=== PATIENT | male | born 1955 | race Caucasian/White ===

== ENCOUNTER 2020-01-06 09:05 | Outpatient (CLI) | payer MEDICARE, OTHER, SELFPAY ==
[2020-01-06 10:11] LABS: Alanine Aminotransferase 32 U/L (4-50); Albumin Level 4.1 g/dL (3.5-5.1); Alkaline Phosphatase 83 U/L (38-126); Aspartate Amino Transferase 26 U/L (17-59); Bilirubin,Total 0.6 mg/dL (0.2-1.3); Blood Urea Nitrogen 10 mg/dL (9-20); Calcium 8.8 mg/dL (8.4-10.2); Carbon Dioxide 27 mmol/L (22-30); Chloride 99 mmol/L (98-107); Cholesterol 94 mg/dL (0-200); Estimated Glomerular Filt Rate > 60; Glucose 177 mg/dL (75-110); HDL Direct 27 mg/dL; Sodium 136 mmol/L (137-145); Triglycerides 199 mg/dL (<150)
[2020-01-06 10:15] LABS: Hemoglobin A1C 7.4 % (<5.7)
[2020-01-06 10:22] LABS: LDL Cholesterol Direct 59 mg/dL
[2020-01-06 10:42] LABS: Prostate Specific Antigen 0.5 ng/mL (< OR = 4.0)
== END 2020-01-06 09:06 | disposition home or self-care (01) ==
PROVIDERS: PCP Family Medicine; Visit Provider Family Medicine
DX: Z12.5 Encounter for screening for malignant neoplasm of prostate (principal); I10 Essential (primary) hypertension; E11.9 Type 2 diabetes mellitus without complications
CPT/HCPCS: 36415; 80053; 80061; 83036; 84153; G0103

== ENCOUNTER 2023-08-18 14:08 | Observation (INO) | payer MEDICARE, OTHER, SELFPAY ==
[2023-08-18] VITALS (22 sets, daily range): BP systolic 110–142; BP diastolic 61–81; PULSE 83–102; RESP 14–32; TEMP 37; O2SAT 92–98
--- NOTE | ~2023-08-18 | XR_ITS ---
EXAMINATION: XR chest 2V DATE: 08/18/2023 15:54 INDICATION: Weakness TECHNIQUE: AP and lateral views of the chest are obtained. COMPARISON: 07/16/2014 FINDINGS: The lungs are free of acute opacities. No pleural effusion or pneumothorax. The cardiomedia stinal silhouette is normal. There is moderate thoracic spondylosis. IMPRESSION: 1. No acute cardiopulmonary abnormality. Reviewed, dictated and finalized at location F.
--- NOTE | 2023-08-18 15:15 | ECG_ITS ---
Measurements Intervals [place] Rate: 87 P: 68 [place]: 185 QRS: 104 QRSD: 138 T: 40 QT: 377 QTc: 454 Interpretive Statements SINUS RHYTHM WITH FREQUENT SUPRAVENTRICULAR PREMATURE COMPLEXES MARKED RIGHT AXIS DEVIATION [QRS AXIS > 100] RIGHT BUNDLE BRANCH BLOCK [120+ ms QRS DURATION, UPRIGHT V1, 40+ ms S IN I/aVL/V4/V5/V6] ABNORMAL ECG COMPARED TO ECG 08/18/2023 15:21:14 NO SIGNIFICANT CHANGES Electronically Signed On 08-19-2023 8:52:43 CDT by Thomas Francois M.D.
[2023-08-18 15:48] LABS: Basophils Percent Auto 0.3 % (0.2-1.2); Eosinophils Percent Auto 0.1 % (0-4.4); Hematocrit 43.4 % (42.0-52.0); Hemoglobin 14.2 g/dL (14.0-18.0); Immature Granulocyte Absolute 0.05 K/mm3 (0.00-0.031); Immature Granulocyte Percent A 0.5 % (0-0.5); Lymphocytes Absolute Auto 0.52 K/mm3 (0.9-3.2); Lymphocytes Percent Auto 5.4 % (18.3-44.2); Mean Corpuscular HGB Conc 32.7 g/dl (32-36); Mean Corpuscular Hemoglobin 30.3 pg (26-34); Mean Corpuscular Volume 92.5 fl (80-100); Mean Platelet Volume 10.6 fl (7.4-10.4); Monocytes Absolute Auto 0.8 K/mm3 (0.1-0.6); Monocytes Percent Auto 8.2 % (2.6-8.5); Neutrophils Absolute Auto 8.3 K/mm3 (1.3-6.7); Neutrophils Percent Auto 85.5 % (45.5-73.1); Platelet Count Result 232 k/mm3 (150-375); Red Blood Count 4.69 M/mm3 (4.6-6.20); Red Cell Distribution Width 13.3 % (11.5-14.5); White Blood Count 9.7 K/mm3 (4.5-10.0)
[2023-08-18 15:54] LABS: Alanine Aminotransferase 54 U/L (6-50); Albumin Level 4.4 g/dL (3.5-5.1); Alkaline Phosphatase 87 U/L (38-126); Anion Gap 14 mmol/L (8-16); Aspartate Amino Transferase 61 U/L (17-59); Bilirubin,Total 0.6 mg/dL (0.2-1.3); Blood Urea Nitrogen 12 mg/dL (9-20); Carbon Dioxide 20 mmol/L (22-30); Chloride 95 mmol/L (98-107); Estimated CRCL calculation 106 ml/min; Estimated Glomerular Filt Rate > 60; Glucose 314 mg/dL (65-110); Potassium 3.9 mmol/L (3.4-5.0); Sodium 129 mmol/L (137-145)
[2023-08-18 16:50] LABS: Appearance Urine Clear (Clear); Bacteria Urine None Seen /hpf; Bilirubin Urine Negative (Negative); Blood Urine Negative (Negative); Color Urine Yellow (Yellow); Glucose Urine UA Negative (Negative); Hyaline Casts Urine Present /lpf; Ketones Urine 3+ mg/dL (Negative); Leukocyte Esterase Ur Negative LEU/UL (Negative); Nitrate Urine Negative (Negative); Protein Urine Trace mg/dL (Negative); RBC Urine 0-2 /hpf (0-2); Specific Grav Ur 1.024 (1.001-1.035); Squamous Epithelial Cell Urine None seen /hpf (Few); WBC Urine 0-5 /hpf; pH Urine 5.5 (5.0-9.0)
[2023-08-18 16:56] LABS: Add Urine Microscopic? YES
--- NOTE | 2023-08-18 21:17 | ECG_ITS ---
Measurements Intervals [place] Rate: 96 P: 80 [place]: 144 QRS: 98 QRSD: 133 T: 33 QT: 383 QTc: 485 Interpretive Statements SINUS RHYTHM WITH OCCASIONAL VENTRICULAR PREMATURE COMPLEXES WITH OCCASIONAL SUPRAVENTRICULAR PREMATURE COMPLEXES RIGHT BUNDLE BRANCH BLOCK [120+ ms QRS DURATION, UPRIGHT V1, 40+ ms S IN I/aVL/V4/V5/V6] ABNORMAL ECG NO PREVIOUS ECG AVAILABLE FOR COMPARISON Electronically Signed On 08-19-2023 8:46:34 CDT by Thomas Francois M.D.
[2023-08-18] MEDS: SODIUM CHLORIDE 0.9% IV 1,000 ML 999 ML IV CONT ×2 (21:30→22:20)
[2023-08-18] MEDS: ONDANSETRON INJ 4 MG/2 ML VIAL IV PUSH (21:31)
[2023-08-18 21:37] LABS: Magnesium 1.7 mg/dL (1.6-2.3)
[2023-08-18 21:49] LABS: Troponin I 0.024 ng/mL (0.000-0.034)
[2023-08-18 22:49] LABS: Glucose Point of Care 277 mg/dl (65-105)
[2023-08-18 23:23] LABS: Troponin I 0.051 ng/mL (0.000-0.034)
--- NOTE | 2023-08-18 23:27 | ED.GENADULT ---
HPI - General Adult General Chief complaint: Weakness Stated complaint: weakness, fall Time Seen by Provider: 08/18/23 21:03 History of Present Illness HPI narrative: Patient is a 67-year-old gentleman who presents the emergency department with chief complaint of generalized weakness. Patient reports that he is a diabetic and takes oral hypoglycemics reports that he had a ground-level fall today and had difficulty getting patient required family members assistance to get up off the ground and reports that they decided to call the office to be checked out the patient reports no head injury denies loss of consciousness reports no pain anywhere just feels generally rundown and was also the patient states he feels as though he is dehydrated. Related Data Home Medications Medication Instructions Recorded Confirmed aspirin 81 mg tablet,delayed 81 mg PO DAILY 01/02/20 10/07/21 release (Adult Low Dose Aspirin) glucosamine-chondroitin 500 mg-400 1 tablet PO BID 01/02/20 10/07/21 mg tablet Allergies Allergy/AdvReac Type Severity Reaction Status Date / Time No Known Allergies Allergy Verified 10/07/21 08:30 Review of Systems Review of Systems: A 10 system review of systems was completed on the patient and is negative except for what is stated in the HPI. Nursing and ancillary documentation was reviewed. PMFSH Past Medical History Medical History Chronic cough Colon cancer screening declined Controlled gout Coronary artery disease Diabetes mellitus Ex-smoker Hyperlipidemia Hypertension Surgical History Surgical History History of appendectomy Family History Family History (Updated 08/19/23 @ 01:04 by Angie Kowalski RN) Mother Diabetes mellitus Father Family history of cardiovascular disease Acute myocardial infarction Hypertension Grandparent Family history of cardiovascular disease Social History Social History Second hand tobacco smoke exposure: No Smoking end date: 10/30/94 Alcohol intake: current Drinks per week: 20 Substance use: never Substance use type: does not use Living arrangements: with family Occupation/Education: retired Gender identity (if verbalized by the patient): Male Spiritual care concerns: Yes Agree to blood products: Yes Exam Narrative: GENERAL: Well-appearing, well-nourished, and in no acute distress. HEAD: Normocephalic, atraumatic. EYES: PERRLA and EOMI. ENT: Nares clear, no rhinorrhea or epistaxis. Mucous membranes dry. NECK: Supple. CHEST: Clear to auscultation. No respiratory distress. HEART: Regular rate and rhythm. No murmur heard. Normal peripheral pulses. ABDOMEN: Soft, nontender, nondistended, normal active bowel sounds. EXTREMITIES: Normal range of motion. No edema. SKIN: Warm, dry, no rash. NEURO: No focal deficits. Alert and oriented x3. PSYCH: Normal mood and affect. Course Vital Signs Vital signs: Vital Signs Temperature 37.0 C 08/18/23 14:17 Pulse Rate 102 H 08/18/23 14:17 Respiratory Rate 20 08/18/23 14:17 Blood Pressure 122/61 08/18/23 14:17 Pulse Oximetry 96 08/18/23 14:17 Oxygen Delivery Room Air 08/18/23 14:17 Temperature 37.0 C 08/18/23 14:17 Pulse Rate 85 08/19/23 00:08 Respiratory Rate 18 08/19/23 00:08 Blood Pressure 113/83 08/19/23 00:08 Pulse Oximetry 94 08/19/23 00:08 Oxygen Delivery Room Air 08/18/23 14:17 Medical Decision Making [facility] Narrative Medical decision making narrative: Differential diagnosis includes dehydration, generalized weakness, electrolyte abnormality, ACS, UTI Laboratory studies were obtained on the patient which showed an initial CBC that was within normal limits electrolytes showed normal renal function glucose was elevated at 314 initi
[2023-08-18] MEDS: ASPIRIN 81 MG CHEWABLE TABLET 324 MG PO (23:30)
[2023-08-18] MEDS: MAGNESIUM SULF 1 GM/D5W 100 ML 1 GM/100 ML BAG IVPB (23:39)
[2023-08-19] VITALS (23 sets, daily range): BP systolic 112–155; BP diastolic 61–83; PULSE 70–90; RESP 16–34; TEMP 36.1–37.2; O2SAT 90–97; BMI 37.5; BMI 38.9
[2023-08-19 00:44] LABS: Creatine Kinase 2682 U/L (55-170)
--- NOTE | 2023-08-19 01:00 | ADMGEN ---
This patient, Eder Hernandez, was admitted to IMU Room 206-01 at 0045. Patient/family oriented to hospital policies and general routines including ID bracelet, bed and alarms, visiting hours, pain management, procedures, bathroom and other care routines, personal items, smoking policy, room service/diet, and visiting hours. Information on how to activate the Rapid Response Team has been discussed. Patient/Family are encouraged to report perceived risks to care and to ask questions if they do not understand what they are told or what they should do.
[2023-08-19] MEDS: SODIUM CHLORIDE 0.9% IV 1,000 ML 125 ML IV CONT ×2 (01:12→18:15)
[2023-08-19 06:59] LABS: Basophils Percent Auto 0.3 % (0.2-1.2); Hematocrit 40.4 % (42.0-52.0); Hemoglobin 12.8 g/dL (14.0-18.0); Immature Granulocyte Absolute 0.04 K/mm3 (0.00-0.031); Immature Granulocyte Percent A 0.6 % (0-0.5); Lymphocytes Absolute Auto 1.04 K/mm3 (0.9-3.2); Mean Corpuscular HGB Conc 31.7 g/dl (32-36); Mean Corpuscular Hemoglobin 29.7 pg (26-34); Mean Corpuscular Volume 93.7 fl (80-100); Mean Platelet Volume 10.6 fl (7.4-10.4); Monocytes Absolute Auto 0.7 K/mm3 (0.1-0.6); Monocytes Percent Auto 10.1 % (2.6-8.5); Neutrophils Absolute Auto 5.1 K/mm3 (1.3-6.7); Platelet Count Result 201 k/mm3 (150-375); Red Blood Count 4.31 M/mm3 (4.6-6.20); Red Cell Distribution Width 13.6 % (11.5-14.5); White Blood Count 6.9 K/mm3 (4.5-10.0)
[2023-08-19 07:08] LABS: Anion Gap 9 mmol/L (8-16); Blood Urea Nitrogen 14 mg/dL (9-20); Calcium 7.8 mg/dL (8.4-10.2); Carbon Dioxide 25 mmol/L (22-30); Chloride 98 mmol/L (98-107); Estimated CRCL calculation 124 ml/min; Estimated Glomerular Filt Rate > 60; Glucose 254 mg/dL (65-110); Potassium 3.2 mmol/L (3.4-5.0); Sodium 132 mmol/L (137-145)
[2023-08-19 07:26] LABS: Troponin I 0.044 ng/mL (0.000-0.034)
[2023-08-19] MEDS: POTASSIUM CHLORIDE 20 MEQ PACKET (FOR LIQUID) 40 MEQ PO (09:36)
[2023-08-19] MEDS: allopurinoL 300 MG TABLET PO (09:36)
[2023-08-19] MEDS: ATORVASTATIN 10 MG TABLET PO (09:36)
[2023-08-19] MEDS: CLOPIDOGREL BISULFATE 75 MG TABLET PO (09:36)
[2023-08-19] MEDS: ASPIRIN 81 MG ENTERIC TABLET PO (09:36)
[2023-08-19] MEDS: lisinopriL 20 MG TABLET 40 MG PO (09:36)
[2023-08-19] MEDS: INDAPAMIDE 2.5 MG TABLET PO (09:36)
[2023-08-19] MEDS: amLODIPine BESYLATE 5 MG TABLET 10 MG PO (09:36)
[2023-08-19 13:39] LABS: Glucose Point of Care 275 mg/dl (65-105)
--- NOTE | 2023-08-19 13:43 | PM.IMHP ---
H&P: HPI History of Present Illness Date/Time: 08/19/23 13:43 Chief Complaint: Patient is a 67-year-old gentleman who presents the emergency department with chief complaint of generalized weakness.? Patient reports that he is a diabetic and takes oral hypoglycemics reports that he had a ground-level fall today and had difficulty getting patient required family members assistance to get up off the ground and reports that they decided to call the office to be checked out the patient reports no head injury denies loss of consciousness reports no pain anywhere just feels generally rundown and was also the patient states he feels as though he is dehydrated Review of Systems Review of Systems: A 10 system review of systems was completed on the patient and is negative except for what is stated in the HPI. Nursing and ancillary documentation was reviewed. [facility] Past Medical History Medical History Chronic cough Colon cancer screening declined Controlled gout Coronary artery disease Diabetes mellitus Ex-smoker Hyperlipidemia Hypertension Surgical History Surgical History History of appendectomy Family History Family History (Updated 08/19/23 @ 01:04 by Angie Kowalski RN) Mother Diabetes mellitus Father Family history of cardiovascular disease Acute myocardial infarction Hypertension Grandparent Family history of cardiovascular disease Social History Social History Smoking packs per day: 3 Smoking cigarettes per day: 60.0 Years smoked: 32 Smoking pack-years: 96.00 Smoking status: Former smoker Tobacco type: cigarettes Second hand tobacco smoke exposure: Yes Smoking end date: 10/30/94 Alcohol intake: former Drinks per week: 20 Substance use: never Substance use type: does not use Last use: has not drank in one year Lack of Transportation: No Lack of Food: Never True Current Housing: I Have Housing Concerned About Future Housing: No Difficulty Paying Gas/Electric Bills: No Difficulty Paying for Meds: No Currently Unemployed: No Education: High School Diploma/GED Difficulty w/ Childcare or Family Care: No Living arrangements: with family Occupation/Education: retired Gender identity (if verbalized by the patient): Male Spiritual care concerns: No Agree to blood products: Yes Meds Home Medications and Allergies Home Medications Medication Instructions Recorded Confirmed Type aspirin 81 mg tablet,delayed 81 mg PO DAILY 01/02/20 08/19/23 History release (Adult Low Dose Aspirin) glucosamine-chondroitin 500 mg-400 1 tablet PO BID 01/02/20 08/19/23 History mg tablet atorvastatin 10 mg tablet 10 mg PO DAILY #90 tabs 10/26/22 08/19/23 Rx allopurinol 300 mg tablet 300 mg PO DAILY #90 tabs 11/14/22 08/19/23 Rx clopidogrel 75 mg tablet 75 mg PO DAILY #90 tabs 11/14/22 08/19/23 Rx indapamide 2.5 mg tablet 2.5 mg PO DAILY #90 tabs 11/14/22 08/19/23 Rx lisinopril 40 mg tablet 40 mg PO DAILY #90 tabs 11/14/22 08/19/23 Rx metformin 500 mg tablet 2,000 mg PO DAILY #360 tabs 11/14/22 08/19/23 Rx glipizide 10 mg tablet, extended 10 mg PO BID #180 tabs 01/16/23 08/19/23 Rx release 24 hr amlodipine 10 mg tablet 10 mg PO DAILY #90 tabs 02/24/23 08/19/23 Rx ascorbic acid (vitamin C) 100 mg 100 mg PO DAILY 08/19/23 08/19/23 History tablet Allergies Allergy/AdvReac Type Severity Reaction Status Date / Time No Known Allergies Allergy Verified 10/07/21 08:30 Vital Signs Vital Signs - 24 hr 08/18/23 14:17 08/18/23 20:52 08/18/23 20:22 Temperature 98.6 F Pulse Rate 102 H 90 83 Respiratory Rate 20 20 20 Blood Pressure 122/61 123/62 128/74 Pulse Oximetry 96 96 96 Oxygen Delivery Room Air 08/18/23 20:23 08/18/23 20:30 08/18/23 20:32 Temperature
[2023-08-19] MEDS: metFORMIN HCL 500 MG TABLET 2000 MG PO (13:48)
[2023-08-19 16:20] LABS: Glucose Point of Care 222 mg/dl (65-105)
[2023-08-19] MEDS: INSULIN ASPART (*BKC) 100 UNITS/ML SUB-Q (18:13)
[2023-08-20] VITALS (8 sets, daily range): BP systolic 114–132; BP diastolic 53–70; PULSE 66–78; RESP 18–28; TEMP 36.3–37.1; O2SAT 94–95
[2023-08-20 01:51] LABS: Glucose Point of Care 162 mg/dl (65-105)
[2023-08-20] MEDS: SODIUM CHLORIDE 0.9% IV 1,000 ML 125 ML IV CONT (04:01)
[2023-08-20 05:11] LABS: Creatine Kinase 2814 U/L (55-170)
[2023-08-20 08:04] LABS: Glucose Point of Care 155 mg/dl (65-105)
[2023-08-20] MEDS: lisinopriL 20 MG TABLET 40 MG PO (09:26)
[2023-08-20] MEDS: allopurinoL 300 MG TABLET PO (09:27)
[2023-08-20] MEDS: CLOPIDOGREL BISULFATE 75 MG TABLET PO (09:27)
[2023-08-20] MEDS: amLODIPine BESYLATE 5 MG TABLET 10 MG PO (09:27)
[2023-08-20] MEDS: ATORVASTATIN 10 MG TABLET PO (09:27)
[2023-08-20] MEDS: INDAPAMIDE 2.5 MG TABLET PO (09:27)
[2023-08-20] MEDS: ASPIRIN 81 MG ENTERIC TABLET PO (09:27)
[2023-08-20] MEDS: metFORMIN HCL 500 MG TABLET 2000 MG PO (09:27)
--- NOTE | 2023-08-20 11:49 | PM.DS ---
DS: Admitting Diagnosis Discharge Date August 20, 2023 Admitting Diagnosis Fall DS: Discharge Diagnosis Discharge Diagnosis (1) Fall from ground level: Code(s): W18.30XA - Fall on same level, unspecified, initial encounter Status: Acute (2) Dehydration: Code(s): E86.0 - Dehydration Status: Acute (3) Generalized weakness: Code(s): R53.1 - Weakness Status: Acute (4) Hyperglycemia: Code(s): R73.9 - Hyperglycemia, unspecified Status: Acute (5) Rhabdomyolysis: Code(s): M62.82 - Rhabdomyolysis Status: Acute Plan Continue IV fluids. Monitor blood sugars. Insulin as needed. PTOT. Monitor CK DS: Summary Hospital Course Hospital Course: Patient was admitted for a fall and mild elevation of CK. He was given IV fluids and he felt better almost immediately. Blood pressure remained okay. CK remain mildly elevated prior to discharge. Otherwise patient is not having any weakness and not having any muscle aches or pain. He is able to walk and do his normal activities. He can be discharged. Time Spent with Patient Time attestation: Total time spent providing and/or coordinating discharge services: Exam Narrative: GENERAL: Well-appearing, well-nourished, and in no acute distress. HEAD: Normocephalic, atraumatic. EYES: PERRLA and EOMI. ENT: Nares clear, no rhinorrhea or epistaxis. Mucous membranes dry. NECK: Supple. CHEST: Clear to auscultation. No respiratory distress. HEART: Regular rate and rhythm. No murmur heard. Normal peripheral pulses. ABDOMEN: Soft, nontender, nondistended, normal active bowel sounds. EXTREMITIES: Normal range of motion. No edema. SKIN: Warm, dry, no rash. NEURO: No focal deficits. Alert and oriented x3. PSYCH: Normal mood and affect. DS: Data Data Completed and Pending Labs on day of discharge: Labs from last 24 hours 08/20/23 08/20/23 08/20/23 07:54 04:10 01:48 POC Capillary Glucose 155 H 162 H Total Creatine Kinase 2814 H 08/19/23 08/19/23 16:06 13:34 POC Capillary Glucose 222 H 275 H Total Creatine Kinase Discharge Plan Discharge Attending physician on discharge: Thomas Mcknight Discharging Clinician: Thomas Mcknight Patient Disposition: Home, Self-Care Activity: as tolerated Diet: as tolerated Patient Instructions: Antibiotic Form Stand Alone Forms: General Discharge Information Follow-up/Referrals: Shanika Patricio MD [Primary Care Provider] - Discharge Medications: Continued atorvastatin 10 mg tablet 10 mg PO DAILY Qty: 90 3RF Rx Instructions: new pharmacy patient requested today [phone] aspirin [Adult Low Dose Aspirin] 81 mg tablet,delayed release (DR/EC) 81 mg PO DAILY glucosamine-chondroitin 500-400 mg tablet 1 tablet PO BID ascorbic acid (vitamin C) 100 mg Tablet 100 mg PO DAILY metformin 500 mg tablet 2,000 mg PO DAILY Qty: 360 3RF Rx Instructions: take 4 tablets with daily evening meal allopurinol 300 mg tablet 300 mg PO DAILY Qty: 90 3RF clopidogrel 75 mg tablet 75 mg PO DAILY Qty: 90 3RF lisinopril 40 mg tablet 40 mg PO DAILY Qty: 90 3RF indapamide 2.5 mg tablet 2.5 mg PO DAILY Qty: 90 3RF glipizide 10 mg tablet extended release 24hr 10 mg PO BID Qty: 180 3RF amlodipine 10 mg tablet 10 mg PO DAILY Qty: 90 2RF Date of admission: 08/18/23 23:37 Primary Care Provider: Shanika Patricio Admitting Provider: Hung Hagan V. Attending physician on admission: Hung Hagan V. Condition: Stable
[2023-08-20 12:07] LABS: Glucose Point of Care 172 mg/dl (65-105)
== END 2023-08-20 13:15 | disposition home health service (06) ==
LOC: ANHED 23:39 → ANHIMU 08-19 00:38
PROVIDERS: Emergency Medicine; Internal Medicine; Admitting Provider Chiropractor; Emergency Provider Emergency Medicine; PCP Family Medicine; Visit Provider Chiropractor
DX: R53.1 Weakness (principal); W18.30XA Fall on same level, unspecified, initial encounter; E86.0 Dehydration; R05.9 Cough, unspecified; I25.10 Atherosclerotic heart disease of native coronary artery without angina pectoris; I10 Essential (primary) hypertension; M10.9 Gout, unspecified; R77.8 Other specified abnormalities of plasma proteins; M62.82 Rhabdomyolysis; E11.65 Type 2 diabetes mellitus with hyperglycemia; R94.31 Abnormal electrocardiogram [ECG] [EKG]; F10.90 Alcohol use, unspecified, uncomplicated; E78.5 Hyperlipidemia, unspecified; Z87.891 Personal history of nicotine dependence; Z79.84 Long term (current) use of oral hypoglycemic drugs; Z79.02 Long term (current) use of antithrombotics/antiplatelets; Z79.899 Other long term (current) drug therapy; Z79.82 Long term (current) use of aspirin; Z83.3 Family history of diabetes mellitus; Z82.49 Family history of ischemic heart disease and other diseases of the circulatory system
CPT/HCPCS: 36415; 71046; 80048; 80053; 81001; 82550; 82948; 83735; 84484; 85025; 93005; 96361; 96365; 96375; 99285; A9270; G0378; J1815; J2405; J3475; J7030

== ENCOUNTER 2023-08-23 16:01 | Outpatient (CLI) | payer MEDICARE, OTHER, SELFPAY ==
[2023-08-23 17:24] LABS: Alanine Aminotransferase 57 U/L (6-50); Albumin Level 4.1 g/dL (3.5-5.1); Alkaline Phosphatase 73 U/L (38-126); Anion Gap 10 mmol/L (8-16); Aspartate Amino Transferase 75 U/L (17-59); Bilirubin,Total 0.6 mg/dL (0.2-1.3); Blood Urea Nitrogen 15 mg/dL (9-20); Calcium 9.1 mg/dL (8.4-10.2); Carbon Dioxide 29 mmol/L (22-30); Chloride 96 mmol/L (98-107); Estimated Glomerular Filt Rate > 60; Glucose 180 mg/dL (65-110); Potassium 3.2 mmol/L (3.4-5.0); Sodium 135 mmol/L (137-145)
[2023-08-23 21:44] LABS: Hemoglobin A1C 9.3 % (<5.7)
== END 2023-08-23 16:02 | disposition home or self-care (01) ==
LOC: ANHLAB 16:04
PROVIDERS: PCP Family Medicine; Visit Provider Physician Assistant Medical
DX: E78.2 Mixed hyperlipidemia (principal); R73.03 Prediabetes
CPT/HCPCS: 36415; 80053; 83036

== ENCOUNTER 2023-09-11 09:31 | Outpatient (CLI) | payer MEDICARE, OTHER, SELFPAY ==
[2023-09-11 10:21] LABS: Basophils Percent Auto 0.3 % (0.2-1.2); Eosinophils Absolute Auto 0.2 K/mm3 (0-0.3); Eosinophils Percent Auto 2.2 % (0-4.4); Hematocrit 42.6 % (42.0-52.0); Hemoglobin 13.8 g/dL (14.0-18.0); Immature Granulocyte Absolute 0.02 K/mm3 (0.00-0.031); Immature Granulocyte Percent A 0.3 % (0-0.5); Lymphocytes Absolute Auto 1.57 K/mm3 (0.9-3.2); Lymphocytes Percent Auto 19.9 % (18.3-44.2); Mean Corpuscular HGB Conc 32.4 g/dl (32-36); Mean Corpuscular Hemoglobin 30.4 pg (26-34); Mean Corpuscular Volume 93.8 fl (80-100); Mean Platelet Volume 10.9 fl (7.4-10.4); Monocytes Absolute Auto 0.5 K/mm3 (0.1-0.6); Monocytes Percent Auto 6.6 % (2.6-8.5); Neutrophils Absolute Auto 5.6 K/mm3 (1.3-6.7); Neutrophils Percent Auto 70.7 % (45.5-73.1); Platelet Count Result 254 k/mm3 (150-375); Red Blood Count 4.54 M/mm3 (4.6-6.20); Red Cell Distribution Width 13.4 % (11.5-14.5); White Blood Count 7.9 K/mm3 (4.5-10.0)
[2023-09-11 10:32] LABS: Alanine Aminotransferase 34 U/L (6-50); Albumin Level 4.1 g/dL (3.5-5.1); Alkaline Phosphatase 81 U/L (38-126); Anion Gap 14 mmol/L (8-16); Aspartate Amino Transferase 25 U/L (17-59); Bilirubin,Total 0.7 mg/dL (0.2-1.3); Blood Urea Nitrogen 12 mg/dL (9-20); Calcium 9.4 mg/dL (8.4-10.2); Carbon Dioxide 28 mmol/L (22-30); Chloride 97 mmol/L (98-107); Estimated Glomerular Filt Rate > 60; Glucose 209 mg/dL (65-110); Sodium 139 mmol/L (137-145)
[2023-09-11 10:35] LABS: Iron 80 ug/dL (49-181)
[2023-09-11 10:47] LABS: Percent Iron Saturation 24 % (20-50)
[2023-09-11 11:36] LABS: Folic Acid 12.1 ng/mL (2.76->20)
== END 2023-09-11 09:32 | disposition home or self-care (01) ==
PROVIDERS: PCP Family Medicine; Visit Provider Family Medicine
DX: D64.9 Anemia, unspecified (principal); E87.6 Hypokalemia; I10 Essential (primary) hypertension
CPT/HCPCS: 36415; 80053; 82607; 82728; 82746; 83540; 83550; 85025

== ENCOUNTER 2023-12-12 09:16 | Outpatient (CLI) | payer MEDICARE, OTHER, SELFPAY ==
[2023-12-12 09:51] LABS: Alanine Aminotransferase 28 U/L (6-50); Albumin Level 4.5 g/dL (3.5-5.1); Alkaline Phosphatase 83 U/L (38-126); Anion Gap 9 mmol/L (8-16); Aspartate Amino Transferase 27 U/L (17-59); Bilirubin,Total 0.7 mg/dL (0.2-1.3); Blood Urea Nitrogen 13 mg/dL (9-20); Calcium 9.5 mg/dL (8.4-10.2); Carbon Dioxide 29 mmol/L (22-30); Chloride 101 mmol/L (98-107); Estimated Glomerular Filt Rate > 60; Glucose 182 mg/dL (65-110); Potassium 3.8 mmol/L (3.4-5.0); Sodium 139 mmol/L (137-145)
[2023-12-12 11:30] LABS: Hemoglobin A1C 8.6 % (<5.7)
== END 2023-12-12 09:17 | disposition home or self-care (01) ==
PROVIDERS: PCP Family Medicine; Visit Provider Physician Assistant Medical
DX: E78.2 Mixed hyperlipidemia (principal); R73.03 Prediabetes
CPT/HCPCS: 36415; 80053; 83036

== ENCOUNTER 2024-06-18 12:16 | Outpatient (CLI) | payer MEDICARE, OTHER, SELFPAY ==
[2024-06-18 13:13] LABS: Basophils Percent Auto 0.4 % (0.2-1.2); Eosinophils Absolute Auto 0.2 K/mm3 (0-0.3); Eosinophils Percent Auto 1.9 % (0-4.4); Hematocrit 47.5 % (42.0-52.0); Hemoglobin 15.5 g/dL (14.0-18.0); Immature Granulocyte Absolute 0.03 K/mm3 (0.00-0.031); Immature Granulocyte Percent A 0.4 % (0-0.5); Lymphocytes Absolute Auto 1.99 K/mm3 (0.9-3.2); Lymphocytes Percent Auto 23.2 % (18.3-44.2); Mean Corpuscular HGB Conc 32.6 g/dl (32-36); Mean Corpuscular Hemoglobin 29.5 pg (26-34); Mean Corpuscular Volume 90.5 fl (80-100); Mean Platelet Volume 10.5 fl (7.4-10.4); Monocytes Absolute Auto 0.6 K/mm3 (0.1-0.6); Monocytes Percent Auto 6.5 % (2.6-8.5); Neutrophils Absolute Auto 5.8 K/mm3 (1.3-6.7); Neutrophils Percent Auto 67.6 % (45.5-73.1); Platelet Count Result 234 k/mm3 (150-375); Red Blood Count 5.25 M/mm3 (4.6-6.20); Red Cell Distribution Width 14.1 % (11.5-14.5); White Blood Count 8.6 K/mm3 (4.5-10.0)
[2024-06-18 13:23] LABS: Alanine Aminotransferase 24 U/L (6-50); Albumin Level 4.3 g/dL (3.5-5.1); Alkaline Phosphatase 79 U/L (38-126); Anion Gap 11 mmol/L (4-12); Aspartate Amino Transferase 22 U/L (17-59); Bilirubin,Total 0.6 mg/dL (0.2-1.3); Blood Urea Nitrogen 13 mg/dL (9-20); Calcium 9.4 mg/dL (8.4-10.2); Carbon Dioxide 26 mmol/L (22-30); Chloride 101 mmol/L (98-107); Cholesterol 106 mg/dL (0-200); Creatine Kinase 47 U/L (55-170); Estimated Glomerular Filt Rate > 60; Glucose 148 mg/dL (65-110); HDL Direct 31 mg/dL; Potassium 3.7 mmol/L (3.4-5.0); Sodium 138 mmol/L (137-145); Triglycerides 126 mg/dL (<150); Uric Acid 4.5 mg/dL (3.5-8.5)
[2024-06-18 13:34] LABS: LDL Cholesterol Direct 56 mg/dL
[2024-06-18 13:37] LABS: Creatinine Urine 79.3 mg/dL
[2024-06-18 13:41] LABS: MALB Creatinine Ratio 12.2 mg/g (0-30); Microalbumin Urine Random 9.7 mg/L (0-16.7)
[2024-06-18 13:42] LABS: Hemoglobin A1C 7.7 % (<5.7)
== END 2024-06-18 12:17 | disposition home or self-care (01) ==
PROVIDERS: PCP Family Medicine; Visit Provider Physician Assistant Medical
DX: E78.2 Mixed hyperlipidemia (principal); D64.9 Anemia, unspecified; E11.65 Type 2 diabetes mellitus with hyperglycemia; E66.9 Obesity, unspecified; Z68.38 Body mass index [BMI] 38.0-38.9, adult; M10.9 Gout, unspecified; I25.10 Atherosclerotic heart disease of native coronary artery without angina pectoris; I10 Essential (primary) hypertension
CPT/HCPCS: 36415; 80053; 80061; 82043; 82550; 83036; 84550; 85025

== ENCOUNTER 2025-01-09 08:47 | Outpatient (CLI) | payer MEDICARE, OTHER, SELFPAY ==
[2025-01-09 09:32] LABS: Basophils Absolute Auto 0.1 K/mm3 (0.0-0.1); Basophils Percent Auto 0.7 % (0.2-1.2); Eosinophils Absolute Auto 0.2 K/mm3 (0-0.3); Eosinophils Percent Auto 3.2 % (0-4.4); Hematocrit 46.9 % (42.0-52.0); Hemoglobin 15.2 g/dL (14.0-18.0); Immature Granulocyte Absolute 0.03 K/mm3 (0.00-0.031); Immature Granulocyte Percent A 0.4 % (0-0.5); Lymphocytes Absolute Auto 1.78 K/mm3 (0.9-3.2); Lymphocytes Percent Auto 24.8 % (18.3-44.2); Mean Corpuscular HGB Conc 32.4 g/dl (32-36); Mean Corpuscular Hemoglobin 29.6 pg (26-34); Mean Corpuscular Volume 91.2 fl (80-100); Mean Platelet Volume 10.8 fl (7.4-10.4); Monocytes Absolute Auto 0.5 K/mm3 (0.1-0.6); Monocytes Percent Auto 6.5 % (2.6-8.5); Neutrophils Absolute Auto 4.6 K/mm3 (1.3-6.7); Neutrophils Percent Auto 64.4 % (45.5-73.1); Platelet Count Result 223 k/mm3 (150-375); Red Blood Count 5.14 M/mm3 (4.6-6.20); White Blood Count 7.2 K/mm3 (4.5-10.0)
[2025-01-09 09:47] LABS: Alanine Aminotransferase 21 U/L (6-50); Albumin Level 4.1 g/dL (3.5-5.1); Alkaline Phosphatase 110 U/L (38-126); Anion Gap 11 mmol/L (4-12); Aspartate Amino Transferase 18 U/L (17-59); Bilirubin,Total 0.8 mg/dL (0.2-1.3); Blood Urea Nitrogen 14 mg/dL (9-20); Calcium 9.3 mg/dL (8.4-10.2); Carbon Dioxide 26 mmol/L (22-30); Chloride 101 mmol/L (98-107); Cholesterol 100 mg/dL (0-200); Estimated Glomerular Filt Rate > 60; Glucose 259 mg/dL (65-110); HDL Direct 32 mg/dL; Potassium 3.8 mmol/L (3.4-5.0); Sodium 138 mmol/L (137-145); Triglycerides 139 mg/dL (<150)
[2025-01-09 09:58] LABS: LDL Cholesterol Direct 46 mg/dL
[2025-01-09 09:59] LABS: Hemoglobin A1C 9.6 % (<5.7)
== END 2025-01-09 08:48 | disposition home or self-care (01) ==
PROVIDERS: PCP Family Medicine; Visit Provider Student in an Organized Health Care Education/Training Program
DX: M10.9 Gout, unspecified (principal); I10 Essential (primary) hypertension; I25.10 Atherosclerotic heart disease of native coronary artery without angina pectoris; E78.2 Mixed hyperlipidemia; E11.65 Type 2 diabetes mellitus with hyperglycemia; D64.9 Anemia, unspecified; Z53.20 Procedure and treatment not carried out because of patient's decision for unspecified reasons
CPT/HCPCS: 36415; 80053; 80061; 83036; 85025

== ENCOUNTER 2025-05-20 12:54 | Outpatient (CLI) | payer MEDICARE, OTHER, SELFPAY ==
--- NOTE | ~2025-05-20 | XR_ITS ---
XR chest 2V 05/20/2025 13:49 Indication: Heart failure Procedure: 2 view chest Comparison: 08/18/2023 Findings: Cardiomegaly. Right basilar infiltrates may represent atelectasis or developing pneumonia. Possible small right pleural effusion. Impression: 1: Interstitial infiltrates right lung base may represent atelectasis or developing pneumonia. Reviewed, dictated and finalized at location A. Impression: 1: Interstitial infiltrates right lung base may represent atelectasis or develo ping pneumonia.
--- NOTE | 2025-05-20 13:13 | ECG_ITS ---
Test Date: 2025-05-20 13:20:41 Measurements Intervals [place] Rate: 127 P: 0 IN: 0 QRS: 117 QRSD: 140 T: 6 QT: 322 QTc: 469 Interpretive Statements ATRIAL FIBRILLATION WITH RAPID VENTRICULAR RESPONSE WITH ABERRANT CONDUCTION OR VENTRICULAR PREMATURE COMPLEXES RIGHT AXIS DEVIATION [QRS AXIS > 100] RIGHT BUNDLE BRANCH BLOCK [120+ ms QRS DURATION, UPRIGHT V1, 40+ ms S IN I/aVL/V4/V5/V6] No previous ECG available for comparison Electronically Signed On 05-20-2025 17:06:00 CDT by Jose Richard M.D.
[2025-05-20 13:18] LABS: Hematocrit 40.2 % (42.0-52.0); Hemoglobin 13.0 g/dL (14.0-18.0); Immature Granulocyte Percent A 0.2 % (0-0.5); Lymphocytes Absolute Auto 1.50 K/mm3 (0.9-3.2); Mean Corpuscular HGB Conc 32.3 g/dl (32-36); Mean Corpuscular Hemoglobin 29.8 pg (26-34); Mean Corpuscular Volume 92.2 fl (80-100); Nucleated Red Blood Cells Absolute Auto 0.000 K/mm3 (0.0-0.012); Nucleated Red Blood Cells Perc 0.0 % (0.0-0.2); Platelet Count Result 192 k/mm3 (150-375); Red Blood Count 4.36 M/mm3 (4.6-6.20); White Blood Count 8.3 K/mm3 (4.5-10.0)
[2025-05-20 13:43] LABS: Hemoglobin A1C 8.5 % (<5.7)
[2025-05-20 14:09] LABS: Thyroid Stimulating Hormone Reflex 0.956 uIU/mL (0.465-4.68)
== END 2025-05-20 12:55 | disposition home or self-care (01) ==
LOC: ANHLAB 12:56
PROVIDERS: PCP Family Medicine; Visit Provider Family Medicine
DX: E11.9 Type 2 diabetes mellitus without complications (principal); I50.9 Heart failure, unspecified; R06.00 Dyspnea, unspecified; R60.9 Edema, unspecified
CPT/HCPCS: 36415; 71046; 83036; 84443; 85025; 85380; 93005

== ENCOUNTER 2025-05-22 08:36 | Outpatient (CLI) | payer MEDICARE, OTHER, SELFPAY ==
[2025-05-22 09:34] LABS: Iron 61 ug/dL (49-181)
[2025-05-22 09:40] LABS: Alanine Aminotransferase 14 U/L (6-50); Albumin Level 3.8 g/dL (3.5-5.1); Alkaline Phosphatase 75 U/L (38-126); Anion Gap 9 mmol/L (4-12); Aspartate Amino Transferase 19 U/L (17-59); Bilirubin,Total 0.8 mg/dL (0.2-1.3); Blood Urea Nitrogen 13 mg/dL (9-20); Calcium 9.0 mg/dL (8.4-10.2); Carbon Dioxide 26 mmol/L (22-30); Chloride 104 mmol/L (98-107); Estimated Glomerular Filt Rate > 60; Glucose 187 mg/dL (65-110); Potassium 3.2 mmol/L (3.4-5.0); Sodium 139 mmol/L (137-145); Total Protein 6.8 g/dL (6.3-8.2)
[2025-05-22 09:46] LABS: NT Pro B Type Natriuretic Pept 3620 pg/mL (19.9-100)
[2025-05-22 09:56] LABS: Percent Iron Saturation 17 % (20-50)
[2025-05-22 10:15] LABS: Ferritin 187.00 ng/mL (11.1-264)
== END 2025-05-22 08:37 | disposition home or self-care (01) ==
PROVIDERS: PCP Family Medicine; Visit Provider Family Medicine
DX: D64.9 Anemia, unspecified (principal); I50.9 Heart failure, unspecified; E11.9 Type 2 diabetes mellitus without complications
CPT/HCPCS: 36415; 80053; 82728; 83540; 83550; 83880

== ENCOUNTER 2025-05-30 08:16 | Outpatient (CLI) | payer MEDICARE, OTHER, SELFPAY ==
[2025-05-30 12:13] LABS: Anion Gap 12 mmol/L (4-12); Blood Urea Nitrogen 21 mg/dL (9-20); Calcium 8.3 mg/dL (8.4-10.2); Carbon Dioxide 22 mmol/L (22-30); Chloride 106 mmol/L (98-107); Estimated Glomerular Filt Rate > 60; Glucose 182 mg/dL (65-110); Potassium 3.5 mmol/L (3.4-5.0); Sodium 140 mmol/L (137-145)
== END 2025-05-30 08:17 | disposition home or self-care (01) ==
PROVIDERS: PCP Family Medicine; Visit Provider Family Medicine
DX: E87.6 Hypokalemia (principal)
CPT/HCPCS: 36415; 80048

== ENCOUNTER 2025-06-13 07:58 | Outpatient (CLI) | payer MEDICARE, OTHER, SELFPAY ==
--- NOTE | ~2025-06-13 | XR_ITS ---
XR chest 2V 06/13/2025 08:39 Indication: Pneumonia Procedure: 2 view chest Comparison: 05/20/2025 Findings: Cardiomegaly. Right basilar airspace disease may represent atelectasis or pneumonia. Small right pleural effusion. Left lung clear. Impression: 1: Right basilar airspace disease, atelectasis versus pneumonia. 2: Small right pleural effusion. 3: Cardiomegaly. Reviewed, dictated and finalized at location A. Impression: 1: Right basilar airspace disease, atelectasis versus pneumonia. 2: Small right pleural effusion. 3: Cardiomegaly.
--- NOTE | 2025-06-13 08:11 | ECHO_ITS ---
Patient Info Name: Eder Hernandez Age: 69 years : 1955 Gender: Male Ht: 70 in Wt: 250 lbs BSA: 2.41 m2 HR: 104 bpm BP: 121 / 62 mmHg Heart Rhythm: Atrial Fibrillation Technical Quality: Fair Exam Date: 06/13/2025 9:05 AM Patient Status: O Admit Date: 06/13/2025 Exam Type: CA echo dop color flow w con Complete two-dimensional, color flow and Doppler transthoracic echocardiogram is performed with contrast to opacify the left ventricle and to improve the deliniation of the left ventricle endocardial borders. Staff Referring Physician: Shanika Patricio Behavior[facility] Professional: Jenni Alejandra Attending Provider: Shanika Patricio Contrast/Agitated Saline Contrast/Ag. Saline: Definity Amount: 2.00 ml Site Condition: IV removed, Site dressing applied and No extravasation Summary 1. Definity contrast administered improved wall motion interpretation. 2. Left ventricular chamber dimension is severely enlarged. 3. Left ventricular septal wall motion is abnormal with septal motion related to bundle branch block. 4. Left ventricular systolic function is severely globally reduced, estimated at 20-25. 5. The left ventricular diastolic function is abnormal. 6. E/e' 13 is mildly elevated. 7. Atrial fibrillation. 8. Right ventricular chamber dimension is moderately enlarged. 9. Right ventricular systolic function is at least moderately reduced and with abnormal TAPSE 1.4 cm. 10. Left atrial chamber dimension is moderately enlarged. 11. Right atrial chamber dimension is moderately enlarged. 12. There is mild aortic valve sclerosis. 13. There is mild to moderate mitral valve regurgitation. 14. There is mild tricuspid valve regurgitation. 15. No pulmonary hypertension, estimated pulmonary arterial systolic pressure is 30 mmHg. 16. There is trace pulmonic regurgitation. 17. Dilated inferior vena cava with >50% collapse upon inspiration consistent with elevated right atrial pressure, 10 mmHg. Left Ventricle Definity contrast administered improved wall motion interpretation. Left ventricular chamber dimension is severely enlarged. Left ventricular septal wall motion is abnormal with septal motion related to bundle branch block. Left ventricular systolic function is severely globally reduced, estimated at 20-25. The left ventricular diastolic function is abnormal. E/e' 13 is mildly elevated. Atrial fibrillation. Right Ventricle Right ventricular chamber dimension is moderately enlarged. Right ventricular systolic function is at least moderately reduced and with abnormal TAPSE 1.4 cm. Left Atria Left atrial chamber dimension is moderately enlarged. Right Atria Right atrial chamber dimension is moderately enlarged. Aortic Valve The aortic valve is trileaflet. There is mild aortic valve sclerosis. There is no aortic valve stenosis. There is no aortic valve regurgitation. Pulmonic Valve There is trace pulmonic regurgitation. Mitral Valve There is no mitral valve stenosis. There is mild to moderate mitral valve regurgitation. Tricuspid Valve There is mild tricuspid valve regurgitation. No pulmonary hypertension, estimated pulmonary arterial systolic pressure is 30 mmHg. Pericardium/Pleural There is no pericardial effusion. Inferior Vena Cava Dilated inferior vena cava with >50% collapse upon inspiration consistent with elevated right atrial pressure, 10 mmHg. Aorta The aortic root size at the sinus of Valsalva is normal. Left Ventricular Outflow Tract Name Value Normal LVOT 2D LVOT Diameter 2.0 cm LVOT Doppler LVOT Peak Velocity 95 cm/s LVOT Peak Gradient 4 mmHg LVOT Mean Gradient 2 mmHg LVOT VTI 18 cm LVOT Stroke Volume 56 ml LVOT CO 5.6 l/min LVOT CI 2.3 l/min/m2 Pulmonic Valve Name Value Normal RVOT Doppler RVOT Peak Velocity 66 cm/s RVOT Peak Gradient 2 mmHg PV Doppler PV Peak Velocity 80 cm/s PV Peak Gradient 3 mmHg Mitral Valve Name Value Normal MV Regurgitation Doppler MR Peak Gradient 55 mmHg MV Diastolic Function MV E Peak Velocity 93 cm/s MV A Peak Velocity 68 cm/s MV E/A 1.4 MV Decel Time (PW) 220 ms MV Annular TDI MV E/e' (Septal) 17.0 MV E/e' (Lateral) 11.3 MV E/e' (Average) 14.2 Tricuspid Valve Name Value Normal TV Regurgitation Doppler TR Peak Velocity 226 cm/s TR Peak Gradient 20 mmHg Estimated PAP/RSVP RA Pressure 10 mmHg <=5 PA Systolic Pressure 30 mmHg <36 RV Systolic Pressure 30 mmHg <36 Aortic Valve Name Value Normal AV Doppler AV Peak Velocity 161 cm/s AV Peak Gradient 10 mmHg AV Area (Cont Eq Kevin) 1.9 cm2 AV DI (Kevin) 0.59 AV Regurgitation 2D LVOT Area 3.2 cm2 Ventricles Name Value Normal LV Dimensions 2D/MM IVS Diastolic Thickness (2D) 1.0 cm 0.6-1.0 LVID Diastole (2D) 5.9 cm 4.2-5.8 LVIW Diastolic Thickness (2D) 0.8 cm 0.6-1.0 LVID Systole (2D) 5.2 cm 2.5-4.0 LVOT Diameter 2.0 cm LV Mass (2D Cubed) 210.97 g 88.00-224.00 LV Mass Index (2D Cubed) 88 g/m2 49-115 Relative Wall Thickness (2D) 0.27 <=0.42 LV Fractional Shortening/Ejection Fraction 2D/MM LV Fractional Shortening (2D) 11 % 25-43 LV EF (2D Teichholz) 24 % LV Diastolic Volume (4C MOD) 184 ml LV EF (4C MOD) 19 % LV Diastolic Volume (2C MOD) 155 ml LV EF (2C MOD) 28 % LV Diastolic Volume (BP MOD) 174 ml 62-150 LV Diastolic Volume Index (BP MOD) 72 ml/m2 34-74 LV Systolic Volume (BP MOD) 137 ml 21-61 LV Systolic Volume Index (BP MOD) 57 ml/m2 11-31 LV EF (BP MOD) 21 % 52-72 LV Diastolic Length (4C) 8.0 cm LV Systolic Length (4C) 7.7 cm LV Stroke Volume (4C MOD) 35 ml Atria Name Value Normal LA Dimensions LA Volume (4C A-L) 85 ml LA Volume (BP A-L) 76 ml RA Dimensions RA Systolic [place] Length (4C) 6.6 cm 2.1-2.7 RA Area (4C) 28.2 cm2 <=18.0 Report Signatures
[2025-06-13] MEDS: PERFLUTREN LIPID MICROSPHERES 1.5 ML VIAL DILUTED TO 10 ML TOTAL VOLUME IV PUSH (10:33)
--- NOTE | 2025-06-13 10:34 | IVDEFINITY ---
Prior to administration of IV Definity the patient was educated on the risks and benefits of the imaging enhancing agent including potential adverse side effects. The patient verbalized understanding. Allergies were verified. No exclusion criteria were identified and at least one of the following inclusion criteria were met: 1) physician request, 2) patient technically difficult to image (per the [place] [employer] guidelines of two or more segments not discernable within the apical view), or 3) questionable left ventricular function. ?
== END 2025-06-13 07:59 | disposition home or self-care (01) ==
LOC: ANHCARD 08:00
PROVIDERS: PCP Family Medicine; Visit Provider Family Medicine
DX: I48.91 Unspecified atrial fibrillation (principal); J18.9 Pneumonia, unspecified organism; J90 Pleural effusion, not elsewhere classified; R91.8 Other nonspecific abnormal finding of lung field; I51.7 Cardiomegaly
CPT/HCPCS: 71046; C8929; Q9957

== ENCOUNTER 2025-06-16 12:12 | Inpatient (IN) | payer MEDICARE, OTHER, SELFPAY ==
[2025-06-16] VITALS (11 sets, daily range): BP systolic 100–139; BP diastolic 63–94; PULSE 59–125; RESP 17–21; TEMP 36.6–36.8; O2SAT 94–100; BMI 39.1
--- NOTE | ~2025-06-16 | XR_ITS ---
EXAMINATION: XR chest 1V portable 06/23/2025 10:34 INDICATION: CHF PROCEDURE: AP portable chest COMPARISON: 08/18/2023 FINDINGS: The lungs are clear. The cardiomediastinal silhouette is within normal limits. There are no pleural effusions. There is no pneumothorax suspected. IMPRESSION: 1: NO ACUTE CARDIOPULMONARY DISEASE. Reviewed, dictated and finalized at location O.
--- NOTE | ~2025-06-16 | XR_ITS ---
EXAM/PROCEDURE: XR chest 2V - 06/16/2025 14:10 CDT HISTORY: 69 years old Male with sob TECHNIQUE: Two view(s) of the chest. COMPARISON: None available. FINDINGS: LUNGS/ PLEURA: Bibasilar and bihilar opacities, right greater than left may represent consolidation v ersus atelectasis and/or scarring. No pneumothorax. Small right pleural effusion. Pulmonary vascular congestion. HEART/ MEDIASTINUM: Mild cardiomegaly. BONES: No acute osseous abnormality. OTHER: Visualized upper abdomen is unremarkable. IMPRESSION: 1. Bilateral airspace opacities and pulmonary vascular congestion with cardiomegaly. Findings may re present CHF versus atypical multifocal pneumonia. Clinical correlation is recommended. Short interval follow-up chest radiograph is recommended after appropriate clinical therapy to document resolution/ stability. 2. Small right pleural effusion. Reviewed, dictated and finalized at location A. IMPRESSION: 1. Bilateral airspace opacities and pulmonary vascular congestion with cardiom egaly. Findings may represent CHF versus atypical multifocal pneumonia. Clinica l correlation is recommended. Short interval follow-up chest radiograph is slime mmended after appropriate clinical therapy to document resolution/stability. 2. Small right pleural effusion.
--- NOTE | 2025-06-16 13:32 | ED_ITS ---
HPI - Recheck/Abnormal Lab/Rx General Chief Complaint: Recheck/Abnormal Lab/Rx <Damari To PA-C - Last Filed: 06/17/25 09:29> Stated Complaint: sent by PCP- abnormal EKG <Damari To PA-C - Last Filed: 06/17/25 09:29> Time Seen by Provider: 06/16/25 13:32 <Damari To PA-C - Last Filed: 06/17/25 09:29> Focused HPI: This is a 69 year old male that presents to the ER for heart failure. Reports he had an echocardiogram yesterday which showed enlarged heart, atrial fibrillation. He was prompted to be seen in the ER for admission by his PCP. Reports exertional shortness of breath and swelling in his legs. Denies chest pain. GENERAL: Well-appearing, well-nourished, and in no acute distress. HEAD: Normocephalic, atraumatic. CHEST: No respiratory distress. Rales in the bilateral lower lobes HEART: Irregularly irregular, normal rate.? NEURO: ?Alert and oriented x3. Patient screened in triage and initial orders placed.? ?Additional care and disposition to be based upon?diagnostic testing and treatment. <Damari To PA-C - Last Filed: 06/17/25 09:29> Source: patient, family, RN notes reviewed and old records reviewed <Ruba Lopez MD - Last Filed: 06/16/25 16:29> Mode of arrival: ambulatory <Ruba Lopez MD - Last Filed: 06/16/25 16:29> Limitations: no limitations <Ruba Lopez MD - Last Filed: 06/16/25 16:29> History of Present Illness HPI narrative: THis is a 69 year old male with history of DM, obesity who presents for evaluation of new onset CHF. Patient states month ago he developed a cough bilateral leg swelling and he was treated for pneumonia. He states that his cough improved but he continued to have swelling and shortness of breath. He states he has been unable to sleep in bed due to orthopnea so he has been sleeping in a recliner for 2 weeks. His bilateral leg swelling is worse today , but he states his swelling usually improved by the morning. He has been started on xarelto and lasix 40 mg BID by his PCP. <Ruba Lopez MD - Last Filed: 06/16/25 16:29> Related Data Home Medications: Home Medications ?Medication ?Instructions ?Recorded ?Confirmed ?Last Taken ?Type glucosamine-chondroitin 500 mg-400 1 tablet PO BID 03/1806/16/25 06/16/25 History mg tablet ascorbic acid (vitamin C) 100 mg 100 mg PO DAILY 08/1906/16/25 06/16/25 History tablet <Damari To PA-C - Last Filed: 06/17/25 09:29> Allergies/Adverse Reactions: Allergies Allergy/AdvReac Type Severity Reaction Status Date / Time No Known Allergies Allergy Verified 06/16/25 18:48 <Damari To PA-C - Last Filed: 06/17/25 09:29> Review of Systems 2 Review of Systems: All systems reviewed & are unremarkable except as noted in HPI and below <Damari To PA-C - Last Filed: 06/17/25 09:29> Cardiovascular: Cardiovascular: Denies chest pain, Denies rapid heart rate and Denies radiating jaw, neck or arm pain <Ruba Lopez MD - Last Filed: 06/16/25 16:29> Respiratory: Respiratory: Reports cough and Reports dyspnea <Ruba Lopez MD - Last Filed: 06/16/25 16:29> [facility] Past Medical History Medical History: Medical History CVA (cerebral vascular accident) 2017 Basal cell carcinoma of right forearm Paroxysmal atrial fibrillation Coronary artery disease Hyperlipidemia CHF (congestive heart failure) Rhabdomyolysis Ex-smoker Chronic cough Colon cancer screening declined Controlled gout Hypertension Diabetes mellitus <Damari To PA-C - Last Filed: 06/17/25 09:29> Surgical History Surgical History: Surgical History History of appendectomy <Damari To PA-C - Last Filed: 06/17/25 09:29> Family History Family History: Family History Mother Diabetes mellitus Father Family history of cardiovascular disease Acute myocardial infarction Hypertension Grandparent Family history of cardiovascular disease <Damari To PA-C - Last Filed: 06/17/25 09:29> Social History Social History: Social History Smoking packs per day: 3 Smoking cigarettes per day: 60.0 Years smoked: 32 Smoking pack-years: 96.00 Smoking status: Never smoker Tobacco type: cigarettes Second hand tobacco smoke exposure: Yes Smoking end date: 10/30/94 Alcohol intake: never Drinks per week: 20 Substance use: never Substance use type: does not use Last use: has not drank in one year Lack of Transportation: No Lack of Food: Never True Current Housing: I Have Housing Concerned About Future Housing: No Difficulty Paying Gas/Electric Bills: No Difficulty Paying for Meds: No Currently Unemployed: No Education: Grade School Difficulty w/ Childcare or Family Care: No Living arrangements: with family Occupation/Education: retired Gender identity (if verbalized by the patient): Male Spiritual care concerns: No Agree to blood products: Yes <Damari To PA-C - Last Filed: 06/17/25 09:29> Exam 2 Const: General: no acute distress and alert <Ruba Lopez MD - Last Filed: 06/16/25 16:29> Nutritional Appearance: obese <Ruba Lopez MD - Last Filed: 06/16/25 16:29> Orientation/consciousness: patient oriented x3 <Ruba Lopez MD - Last Filed: 06/16/25 16:29> HENMT: Head: normal to inspection <Ruba Lopez MD - Last Filed: 06/16/25 16:29> Eyes: EOM: EOMs intact bilaterally <Ruba Lopez MD - Last Filed: 06/16/25 16:29> Resp: Effort & Inspection: normal respiratory effort <Ruba Lopez MD - Last Filed: 06/16/25 16:29> Auscultation: crackles bilateral in the lower lung almanza <Ruba Lopez MD - Last Filed: 06/16/25 16:29> Cardio: Rate: tachycardic <Ruba Lopez MD - Last Filed: 06/16/25 16:29> Rhythm: abnormal rhythm <Ruba Lopez MD - Last Filed: 06/16/25 16:29> Heart sounds: Murmur heart sound present <Ruba Lopez MD - Last Filed: 06/16/25 16:29> GI: Inspection: distended <Ruba Lopez MD - Last Filed: 06/16/25 16:29> GI Palp: Yes Soft to palpation, No Tenderness to palpation present (GI), No Guarding due to palpation present (GI) and No Rigid due to palpation <Ruba Lopez MD - Last Filed: 06/16/25 16:29> Auscultation: normal bowel sounds <Ruba Lopez MD - Last Filed: 06/16/25 16:29> Neuro: General: patient oriented x3, moves all extremities and CN's II-XI intact bilaterally <Ruba Lopez MD - Last Filed: 06/16/25 16:29> Extrem: General: edema bilateral (bilateral severe pedal , leg edema) < Ruba Lopez MD - Last Filed: 06/16/25 16:29> Psych: Mental Status: mental status grossly normal <Ruba Lopez MD - Last Filed: 06/16/25 16:29> Affect: normal affect <Ruba Lopez MD - Last Filed: 06/16/25 16:29> Attitude: cooperative <Ruba Lopez MD - Last Filed: 06/16/25 16:29> Course Consultations Consultation #1: I spoke with Dr. Yoo with cardiology. He recommends diuresing patient and starting low dose beta halima. Patient should be NPO after midnight for possible heart cath <Ruba Lopez MD - Last Filed: 06/16/25 16:29> Date: 06/16/25 <Ruba Lopez MD - Last Filed: 06/16/25 16:29> Time: 16:20 <Ruba Lopez MD - Last Filed: 06/16/25 16:29> Consultation #2: I Discussed case with LORETO Pack with hospitalist she accepts patient to service. <Ruba Lopez MD - Last Filed: 06/16/25 16:29> Date: 06/09/25 <Ruba Lopez MD - Last Filed: 06/16/25 16:29> Time: 16:21 <Ruba Lopez MD - Last Filed: 06/16/25 16:29> Vital Signs Vital signs: Vital Signs Temperature 98.3 F 06/16/25 12:27 Pulse Rate 114 H 06/16/25 12:27 Respiratory Rate 20 06/16/25 12:27 Blood Pressure 139/66 06/16/25 12:27 Pulse Oximetry 100 06/16/25 12:27 Oxygen Delivery Room Air 06/16/25 12:27 Temperature 97.7 F 06/17/25 08:00 Pulse Rate 104 H 06/17/25 08:22 Respiratory Rate 16 06/17/25 08:00 Blood Pressure 119/83 06/17/25 08:00 Pulse Oximetry 98 06/17/25 08:00 Oxygen Delivery Room Air 06/17/25 04:00 <Damari To PA-C - Last Filed: 06/17/25 09:29> Vital Signs Temperature 98.3 F 06/16/25 12:27 Pulse Rate 114 H 06/16/25 12:27 Respiratory Rate 20 06/16/25 12:27 Blood Pressure 139/66 06/16/25 12:27 Pulse Oximetry 100 06/16/25 12:27 Oxygen Delivery Room Air 06/16/25 12:27 Temperature 97.7 F 06/17/25 08:00 Pulse Rate 104 H 06/17/25 08:22 Respiratory Rate 16 06/17/25 08:00 Blood Pressure 119/83 06/17/25 08:00 Pulse Oximetry 98 06/17/25 08:00 Oxygen Delivery Room Air 06/17/25 04:00 <Ruba Lopez MD - Last Filed: 06/16/25 16:29> MDM - Recheck/Abnormal Lab/Rx Medical Records Attestation: I reviewed the patient's medical records. <Ruba Lopez MD - Last Filed: 08/18/25 16:29> Medical records narrative: ECHO done 06/13/25 - EF 20% <Ruba Lopez MD - Last Filed: 06/16/25 16:29> Lab Data Attestation: I reviewed the patient's lab results. <Ruba Lopez MD - Last Filed: 06/16/25 16:29> Result diagrams: 06/16/25 13:56 06/16/25 13:56 <Damari To PA-C - Last Filed: 06/17/25 09:29> Labs: Lab Results 06/16/25 06/16/25 Range/Units 13:56 13:56 WBC 7.9 (4.5-10.0) K/mm3 RBC 4.66 (4.6-6.20) M/mm3 Hgb 13.7 L (14.0-18.0) g/dL Hct 43.8 (42.0-52.0) % MCV 94.0 (80-100) fl MCH 29.4 (26-34) pg MCHC 31.3 L (32-36) g/dl RDW 16.6 H (11.5-14.5) % Plt Count 153 (150-375) k/mm3 MPV 11.4 H (7.4-10.4) fl Immature Gran % (Auto) 0.3 (0-0.5) % Neut % (Auto) 77.3 H (45.5-73.1) % Lymph % (Auto) 16.6 L (18.3-44.2) % Frederick % (Auto) 5.0 (2.6-8.5) % Eos % (Auto) 0.5 (0-4.4) % Baso % (Auto) 0.3 (0.2-1.2) % Lymph # (Auto) 1.30 (0.9-3.2) K/mm3 Frederick # (Auto) 0.4 (0.1-0.6) K/mm3 Eos # (Auto) 0.0 (0-0.3) K/mm3 Baso # (Auto) 0.0 (0.0-0.1) K/mm3 Abs Immat Gran (auto) 0.02 (0.00-0.031) K/mm3 Absolute Neuts (auto) 6.1 (1.3-6.7) K/mm3 Absolute Nucleated RBC 0.000 (0.0-0.012) K/mm3 Nucleated RBC % 0.0 (0.0-0.2) % PT 20.8 H (11.1-14.7) Seconds INR 1.8 APTT 28.5 (22.3-36.8) Seconds Sodium 140 (137-145) mmol/L Potassium 3.8 (3.4-5.0) mmol/L Chloride 103 (98-107) mmol/L Carbon Dioxide 28 (22-30) mmol/L Anion Gap 9 (4-12) mmol/L BUN 20 (9-20) mg/dL Creatinine 0.94 (0.7-1.3) mg/dL Estim Creat Clear Calc 85 ml/min Estimated GFR > 60 (59 - ) Glucose 192 H (65-110) mg/dL Calcium 8.9 (8.4-10.2) mg/dL Total Bilirubin 0.6 (0.2-1.3) mg/dL AST 22 (17-59) U/L ALT 21 (6-50) U/L Alkaline Phosphatase 87 (38-126) U/L Troponin I 0.013 (0.000-0.034) ng/mL NT-Pro-B Natriuret Pep Cancelled 3890 H Total Protein 6.6 (6.3-8.2) g/dL Albumin 3.7 (3.5-5.1) g/dL Lipase 51 (23-300) U/L <Damari To PA-C - Last Filed: 06/17/25 09:29> Lab Results 06/16/25 06/16/25 Range/Units 13:56 13:56 WBC 7.9 (4.5-10.0) K/mm3 RBC 4.66 (4.6-6.20) M/mm3 Hgb 13.7 L (14.0-18.0) g/dL Hct 43.8 (42.0-52.0) % MCV 94.0 (80-100) fl MCH 29.4 (26-34) pg MCHC 31.3 L (32-36) g/dl RDW 16.6 H (11.5-14.5) % Plt Count 153 (150-375) k/mm3 MPV 11.4 H (7.4-10.4) fl Immature Gran % (Auto) 0.3 (0-0.5) % Neut % (Auto) 77.3 H (45.5-73.1) % Lymph % (Auto) 16.6 L (18.3-44.2) % Frederick % (Auto) 5.0 (2.6-8.5) % Eos % (Auto) 0.5 (0-4.4) % Baso % (Auto) 0.3 (0.2-1.2) % Lymph # (Auto) 1.30 (0.9-3.2) K/mm3 Frederick # (Auto) 0.4 (0.1-0.6) K/mm3 Eos # (Auto) 0.0 (0-0.3) K/mm3 Baso # (Auto) 0.0 (0.0-0.1) K/mm3 Abs Immat Gran (auto) 0.02 (0.00-0.031) K/mm3 Absolute Neuts (auto) 6.1 (1.3-6.7) K/mm3 Absolute Nucleated RBC 0.000 (0.0-0.012) K/mm3 Nucleated RBC % 0.0 (0.0-0.2) % PT 20.8 H (11.1-14.7) Seconds INR 1.8 APTT 28.5 (22.3-36.8) Seconds Sodium 140 (137-145) mmol/L Potassium 3.8 (3.4-5.0) mmol/L Chloride 103 (98-107) mmol/L Carbon Dioxide 28 (22-30) mmol/L Anion Gap 9 (4-12) mmol/L BUN 20 (9-20) mg/dL Creatinine 0.94 (0.7-1.3) mg/dL Estim Creat Clear Calc 85 ml/min Estimated GFR > 60 (59 - ) Glucose 192 H (65-110) mg/dL Calcium 8.9 (8.4-10.2) mg/dL Total Bilirubin 0.6 (0.2-1.3) mg/dL AST 22 (17-59) U/L ALT 21 (6-50) U/L Alkaline Phosphatase 87 (38-126) U/L Troponin I 0.013 (0.000-0.034) ng/mL NT-Pro-B Natriuret Pep Cancelled 3890 H Total Protein 6.6 (6.3-8.2) g/dL Albumin 3.7 (3.5-5.1) g/dL Lipase 51 (23-300) U/L <Ruba Lopez MD - Last Filed: 06/16/25 16:29> Imaging Data Radiologist's impression: ITS Impressions Chest X-Ray 06/16/25 14:25 IMPRESSION: 1. Bilateral airspace opacities and pulmonary vascular congestion with cardiomegaly. Findings may represent CHF versus atypical multifocal pneumonia. Clinical correlation is recommended. Short interval follow-up chest radiograph is recommended after appropriate clinical therapy to document resolution/stability. 2. Small right pleural effusion. <Ruba Lopez MD - Last Filed: 06/16/25 16:29> ECG Data EKG #1: Attestation: I personally reviewed and interpreted this ECG as follows: <Ruba Lopez MD - Last Filed: 06/16/25 16:29> ECG completion date: 06/16/25 <Ruba Lopez MD - Last Filed: 06/16/25 16:29> ECG completion time: 13:49 <Ruba Lopez MD - Last Filed: 06/16/25 16:29> EKG Interpretation: tachycardia (07), atrial fibrillation, PVCs, non-specific ST changes, RBBB and right axis <Ruba Lopez MD - Last Filed: 06/16/25 16:29> Critical Care Time Critical Care Time Critical Care Time: Yes <Ruba Lopez MD - Last Filed: 06/16/25 16:29> Total Critical Care Time: 35 <Ruba Lopez MD - Last Filed: 06/16/25 16:29> Discharge Plan Discharge Clinical Impression: New onset a-fib CHF (congestive heart failure) Qualifiers: Heart failure type: systolic Heart failure chronicity: acute Qualified Code(s): I50.21 - Acute systolic (congestive) heart failure <Damari To PA-C - Last Filed: 06/17/25 09:29> Patient Disposition: Still a Patient <STEVIE Mg Last Filed: 06/17/25 09:29> Condition: Serious <Damari To PA-C - Last Filed: 06/17/25 09:29>
--- NOTE | 2025-06-16 13:35 | ECG_ITS ---
Test Date: 2025-06-16 13:49:17 Measurements Intervals [place] Rate: 107 P: 0 [place]: 0 QRS: 105 QRSD: 138 T: 2 QT: 366 QTc: 489 Interpretive Statements ATRIAL FIBRILLATION WITH RAPID VENTRICULAR RESPONSE WITH VENTRICULAR COUPLET AND VENTRICULAR PREMATURE COMPLEXES RIGHT AXIS DEVIATION RIGHT BUNDLE BRANCH BLOCK BASELINE ARTIFACT- I, II, AVR, AVF ABNORMAL ECG Compared to ECG 05/20/2025 13:20:41 HEART RATE HAS DECREASED Electronically Signed On 06-16-2025 13:55:46 CDT by Bong Edge D.O.
[2025-06-16 14:07] LABS: Hematocrit 43.8 % (42.0-52.0); Hemoglobin 13.7 g/dL (14.0-18.0); Immature Granulocyte Percent A 0.3 % (0-0.5); Lymphocytes Absolute Auto 1.30 K/mm3 (0.9-3.2); Mean Corpuscular HGB Conc 31.3 g/dl (32-36); Mean Corpuscular Hemoglobin 29.4 pg (26-34); Mean Corpuscular Volume 94.0 fl (80-100); Nucleated Red Blood Cells Absolute Auto 0.000 K/mm3 (0.0-0.012); Nucleated Red Blood Cells Perc 0.0 % (0.0-0.2); Platelet Count Result 153 k/mm3 (150-375); Red Blood Count 4.66 M/mm3 (4.6-6.20); White Blood Count 7.9 K/mm3 (4.5-10.0)
[2025-06-16 14:17] LABS: INR 1.8; Partial Thromboplastin Time 28.5 Seconds (22.3-36.8); Prothrombin Time 20.8 Seconds (11.1-14.7)
[2025-06-16 14:23] LABS: Alanine Aminotransferase 21 U/L (6-50); Albumin Level 3.7 g/dL (3.5-5.1); Alkaline Phosphatase 87 U/L (38-126); Anion Gap 9 mmol/L (4-12); Aspartate Amino Transferase 22 U/L (17-59); Bilirubin,Total 0.6 mg/dL (0.2-1.3); Blood Urea Nitrogen 20 mg/dL (9-20); Calcium 8.9 mg/dL (8.4-10.2); Carbon Dioxide 28 mmol/L (22-30); Chloride 103 mmol/L (98-107); Estimated CRCL calculation 85 ml/min; Estimated Glomerular Filt Rate > 60; Glucose 192 mg/dL (65-110); Lipase 51 U/L (23-300); Potassium 3.8 mmol/L (3.4-5.0); Sodium 140 mmol/L (137-145); Total Protein 6.6 g/dL (6.3-8.2)
[2025-06-16 14:34] LABS: NT Pro B Type Natriuretic Pept 3890 pg/mL (19.9-100); Troponin I 0.013 ng/mL (0.000-0.034)
[2025-06-16] MEDS: FUROSEMIDE INJ 40 MG/4 ML VIAL IV PUSH ×2 (16:32→21:22)
[2025-06-16 17:09] LABS: Troponin I 0.013 ng/mL (0.000-0.034)
--- NOTE | 2025-06-16 18:35 | ADMGEN ---
This patient, Eder Hernandez, was admitted to IMU Room 209-01. Patient/family oriented to hospital policies and general routines including ID bracelet, bed and alarms, visiting hours, pain management, procedures, bathroom and other care routines, personal items, smoking policy, room service/diet, and visiting hours. watch left on Information on how to activate the Rapid Response Team has been discussed. Patient/Family are encouraged to report perceived risks to care and to ask questions if they do not understand what they are told or what they should do.
--- NOTE | 2025-06-16 19:43 | ECG_ITS ---
Test Date: 2025-06-16 19:59:54 Measurements Intervals [place] Rate: 111 P: 0 [place]: 0 QRS: 124 QRSD: 149 T: -30 QT: 355 QTc: 483 Interpretive Statements ATRIAL FIBRILLATION WITH RAPID VENTRICULAR RESPONSE WITH ABERRANT CONDUCTION OR VENTRICULAR PREMATURE COMPLEXES RIGHT BUNDLE BRANCH BLOCK LEFT POSTERIOR FASCICULAR BLOCK BASELINE ARTIFACT- I, II, V1-V2 ABNORMAL ECG Compared to ECG 06/16/2025 13:49:17 LEFT POSTERIOR FASCICULAR BLOCK NOW PRESENT Electronically Signed On 06-17-2025 06:07:28 CDT by Bong Edge D.O.
[2025-06-16 20:08] LABS: Troponin I 0.014 ng/mL (0.000-0.034)
--- NOTE | 2025-06-16 21:44 | P.HP_ITS ---
H&P: HPI History of Present Illness Date/Time: 06/16/25 21:44 Chief Complaint: Shortness of Breath Narrative: 69 y/o M with PMH of atrial fibrillation on anticoagulation, former smoker, coronary artery disease, hyperlipidemia, hypertension and diabetes presents here with shortness of breath. The patient presents here from his PCP office (Sheng NO) for further evaluation of exertional shortness of breath. He was recently diagnosed with atrial fibrillation and started on Metoprolol and Xarelto. He reported bilateral lower extremity swelling 2 weeks prior to his visit on 05/20/2025. At that time he was diagnosed with new onset CHF. Echo was ordered to confirm diagnosis. Patient's p.o. colitis on was discontinued as that may have been worsening is edema and he was started on Lasix 40 mg daily. He then followed up on 06/04 and continue to report dyspnea with exertion. The patient's Lasix was increased to 40 mg b.i.d. and KCl 10 meq was also added. Echo was then completed on 06/13 and showed systolic function was severely globally reduced, EF of 20-25%, diastolic function abnormal, AFib, and mild valvular disease with no pulmonary hypertension. Given these findings and patient's continued exertional shortness of breath he was directed to the emergency department. He continues to report exertional shortness of breath and bilateral lower extremity swelling, however the exertional shortness of breath has improved with the initiation of Lasix. He denies accompanying chest pain, shortness of breath at rest, dizziness, nausea, vomiting, diarrhea, or weight gain. Initial VS at presentation: 98.3? F, HR 114, R 20, 139/66, and 100% on RA. ED workup showed: No leukocytosis, hemoglobin 13.7, INR 1.8, no significant electrolyte derangements, glucose 182, initial troponin flat x3, BNP 3890. CXR showed bilateral airspace opacities and pulmonary vascular congestion with cardiomegaly 6, small right pleural effusion. EKG showed AFib RVR with ventricular couplets and ventricular premature complexes, right axis deviation, right bundle branch block, rate 107. Review of Systems Review of Systems: All systems reviewed & are unremarkable except as noted in HPI and below [facility] Past Medical History Medical History CVA (cerebral vascular accident) 2017 Basal cell carcinoma of right forearm Paroxysmal atrial fibrillation Coronary artery disease Hyperlipidemia CHF (congestive heart failure) Rhabdomyolysis Ex-smoker Chronic cough Colon cancer screening declined Controlled gout Hypertension Diabetes mellitus Surgical History Surgical History History of appendectomy Family History Family History Mother Diabetes mellitus Father Family history of cardiovascular disease Acute myocardial infarction Hypertension Grandparent Family history of cardiovascular disease Social History Social History Smoking packs per day: 3 Smoking cigarettes per day: 60.0 Years smoked: 32 Smoking pack-years: 96.00 Smoking status: Never smoker Tobacco type: cigarettes Second hand tobacco smoke exposure: Yes Smoking end date: 10/30/94 Alcohol intake: never Drinks per week: 20 Substance use: never Substance use type: does not use Last use: has not drank in one year Lack of Transportation: No Lack of Food: Never True Current Housing: I Have Housing Concerned About Future Housing: No Difficulty Paying Gas/Electric Bills: No Difficulty Paying for Meds: No Currently Unemployed: No Education: Grade School Difficulty w/ Childcare or Family Care: No Living arrangements: with family Occupation/Education: retired Gender identity (if verbalized by the patient): Male Spiritual care concerns: No Agree to blood products: Yes Meds Home Medications and Allergies Home Medications ?Medication ?Instructions ?Recorded ?Confirmed ?Type glucosamine-chondroitin 500 mg-400 1 tablet PO BID 01/02/20 06/16/25 History mg tablet ascorbic acid (vitamin C) 100 mg 100 mg PO DAILY 08/19/23 06/16/25 History tablet benzonatate 100 mg capsule 100 mg PO TID PRN cough #30 caps 08/23/23 06/16/25 Rx blood sugar diagnostic (Accu-Chek #100 ea 08/23/23 06/16/25 Rx Guide test strips) blood-glucose meter (Accu-Chek #1 ea 08/23/23 06/16/25 Rx Guide Glucose Meter) lancets (Accu-Chek Softclix #100 ea 08/25/23 06/16/25 Rx Lancets) allopurinol 300 mg tablet 300 mg PO DAILY #90 tabs 10/09/24 06/16/25 Rx glipizide 10 mg tablet, extended 10 mg PO BID #180 tabs 12/17/24 06/16/25 Rx release 24 hr potassium chloride 10 mEq 10 meq PO DAILY #90 caps 12/17/24 06/16/25 Rx capsule,extended release amlodipine 10 mg tablet 10 mg PO DAILY #90 tabs 01/06/25 06/16/25 Rx atorvastatin 10 mg tablet 10 mg PO DAILY #90 tabs 01/06/25 06/16/25 Rx losartan 100 mg tablet 100 mg PO DAILY #90 tabs 03/10/25 06/16/25 Rx blood-glucose sensor (FreeStyle #2 ea 05/20/25 06/16/25 Rx Radha 3 Plus Sensor device) blood-glucose,broomcorn grader,cont #1 ea 05/20/25 06/16/25 Rx (FreeStyle Radha 3 [place]) pen needle, diabetic 33 gauge x #100 ea 05/20/25 06/16/25 Rx 5/16 metoprolol succinate 25 mg 25 mg PO DAILY #30 tabs 05/21/25 06/16/25 Rx tablet,extended release 24 hr rivaroxaban 20 mg tablet (Xarelto) 20 mg PO DAILY #30 tabs 05/22/25 06/16/25 Rx insulin glargine 100 unit/mL (3 15 unit (0.15 mL) subcut QAM #15 mL 05/30/25 06/16/25 Rx mL) subcutaneous pen (Lantus Solostar U-100 Insulin) albuterol sulfate 90 mcg/actuation 1 puff inhalation Q4H PRN 06/04/25 06/16/25 Rx aerosol inhaler (Ventolin HFA) shortness of breath or wheezing #8.5 grams furosemide 40 mg tablet (Lasix) 40 mg PO BID #60 tabs 06/04/25 06/16/25 Rx Allergies Allergy/AdvReac Type Severity Reaction Status Date / Time No Known Allergies Allergy Verified 06/16/25 18:48 Vital Signs Vital Signs - 24 hr 06/16/25 12:27 06/16/25 15:22 06/16/25 15:35 Temperature 98.3 F 98.1 F Pulse Rate 114 H 59 L Respiratory Rate 20 17 21 H Blood Pressure 139/66 106/70 Pulse Oximetry 100 98 Oxygen Delivery Room Air 06/16/25 17:12 06/16/25 17:32 06/16/25 18:28 Temperature 97.9 F Pulse Rate 110 H 95 107 H Respiratory Rate 18 20 20 Blood Pressure 127/63 131/94 H 113/71 Pulse Oximetry 95 96 100 Oxygen Delivery 06/16/25 20:00 06/16/25 21:22 Temperature 97.8 F Pulse Rate 112 H 117 H Respiratory Rate 20 Blood Pressure 100/80 Pulse Oximetry 94 Oxygen Delivery Exam Const: General: comfortable and no acute distress Other: , male, nontoxic appearance HENMT: Face/Nose/Sinus: Normal nares present Mouth: Yes moist mucous membranes Eyes: General: appearance normal, both eyes and all related structures Sclera: sclerae normal Pupils: Equal, round and reactive pupils present EOM: EOMs intact bilaterally Resp: Effort & Inspection: normal respiratory effort Auscultation: clear to auscultation bilaterally Cardio: Rate: tachycardic Rhythm: abnormal rhythm Other: Normal murmur or rub. GI: Other: Abdomen tight and rounded but nontender. Normoactive bowel sounds in all quadrants. Skin: General skin exam: normal color Wounds: no wounds Other: Erythematous rash to bilateral lower extremities with no open wound is and mild scaling. Neuro: Speech: normal speech Motor exam (neuro): 5/5 motor strength present throughout Sensory Exam: normal sensation Other: A&O x4 Extrem: Other: 2 to 3+ pitting edema to bilateral lower extremity eyes starting at thigh exte nding to ankles, symmetric. Very tight on exam. Psych: Mental Status: mental status grossly normal Affect: normal affect Other: Good insight and judgment, very pleasant H&P: Results Labs Labs: Short CBC 06/16/25 Range/Units 13:56 WBC 7.9 (4.5-10.0) K/mm3 Hgb 13.7 L (14.0-18.0) g/dL Hct 43.8 (42.0-52.0) % Plt Count 153 (150-375) k/mm3 [facility] 06/16/25 13:56 Sodium 140 Potassium 3.8 Chloride 103 Carbon Dioxide 28 BUN 20 Creatinine 0.94 Glucose 192 H Calcium 8.9 Cardiac Enzymes 06/16/25 06/16/25 06/16/25 Range/Units 13:56 16:39 19:40 Troponin I 0.013 0.013 0.014 (0.000-0.034) ng/mL Liver Function 06/16/25 Range/Units 13:56 Total Bilirubin 0.6 (0.2-1.3) mg/dL AST 22 (17-59) U/L ALT 21 (6-50) U/L Alkaline Phosphatase 87 (38-126) U/L Albumin 3.7 (3.5-5.1) g/dL Assessment and Plan Assessment and plan (1) CHF (congestive heart failure): Qualifiers: Heart failure chronicity: acute Heart failure type: systolic Qualified Code(s): I50.21 - Acute systolic (congestive) heart failure Code(s): I50.9 - Heart failure, unspecified Status: Acute Assessment and Plan: - acute exacerbation of CHF - BNP 3890 - most recent echo (06/13/25): systolic function was severely globally reduced, EF of 20-25%, diastolic function abnormal, AFib, and mild valvular disease with no pulmonary hypertension - on Lasix 40 mg BID PO outpatient, will start Lasix 40 mg IV BID - monitor I&Os and daily weights - trend renal function - cardiology consulted -> ED touched base with on-call classification inspector (Fredo NO) upon admission. recommended diuresing patient, starting low-dose beta-halima, and making patient NPO midnight for possible heart catheterization. Reviewed patient's medication has, patient already on metoprolol ER 25 mg daily. Will discontinue Coreg order as he is already on a beta-halima. Will need to be reviewed by Cardiology tomorrow. (2) Diabetes mellitus: Qualifiers: Diabetes mellitus complication status: without complication Diabetes mellitus termination clerk insulin use: without long-term use Diabetes mellitus type: type 2 Qualified Code(s): E11.9 - Type 2 diabetes mellitus without complications Code(s): E11.9 - Type 2 diabetes mellitus without complications Status: Chronic Assessment and Plan: - hypoglycemia protocol - POC blood glucose ACHS - home medication: Continue Lantus 15 units QAM. Hold glipizide. - correct regimen ordered - high dose TIDWM, based off BMI - A1C 8.5% on 05/20/2025 (3) Paroxysmal atrial fibrillation: Code(s): I48.0 - Paroxysmal atrial fibrillation Status: Chronic Assessment and Plan: - continue home medications: Metoprolol 25 mg ER and Xarelto. (4) Hypertension: Qualifiers: Hypertension type: essential hypertension Qualified Code(s): I10 - Essential (primary) hypertension Code(s): I10 - Essential (primary) hypertension Status: Chronic Assessment and Plan: - chronic, currently 100/80 - continue home medications: Losartan, Amlodipine - monitor Plan Patient additionally has erythematous rash to bilateral lower extremities that appears consistent with cutaneous candidiasis. Ketoconazole topical ordered. Diet: Heart healthy, NPO midnight GI Prophylaxis: N/a DVT Prophylaxis: Xarelto IV fluids: None Lines/Tubes: Peripheral IV Code Status: Full code Quality VTE Prophylaxis VTE prophylaxis: pharmacologic ordered Hospitalist MIPS Advance Care Plan I have confirmed that the patient's Advanced Care Plan is present, code status is documented, or surrogate decision maker is listed in patient medical record.: Yes Medication Reconciliation I have utilized all available resources to obtain, update and review the patients current medications (includes all prescriptions, OTC, herbals, cannabis, and nutritional supplements).: Yes
[2025-06-16] MEDS: METOPROLOL TARTRATE INJ 5 MG/5 ML VIAL IV PUSH (22:27)
[2025-06-16 23:22] LABS: Magnesium 2.1 mg/dL (1.6-2.3)
[2025-06-17] VITALS (17 sets, daily range): BP systolic 95–119; BP diastolic 70–83; PULSE 94–116; RESP 16–20; TEMP 36.4–36.6; O2SAT 95–99
[2025-06-17] MEDS: FUROSEMIDE INJ 40 MG/4 ML VIAL IV PUSH ×3 (00:25→21:10)
[2025-06-17] MEDS: LOSARTAN POTASSIUM 100 MG TABLET PO (08:21)
[2025-06-17] MEDS: POTASSIUM CHLORIDE 10 MEQ ER TABLET PO (08:22)
[2025-06-17] MEDS: ATORVASTATIN 10 MG TABLET PO (08:22)
[2025-06-17] MEDS: METOPROLOL SUCCINATE EXT REL 25 MG TABCR PO (08:22)
[2025-06-17] MEDS: ASCORBIC ACID 125 MG TABLET BY MOUTH (08:24)
[2025-06-17] MEDS: MICONAZOLE NITRATE 2% CREAM 30 GM TUBE 1 APPLIC TOPICAL ×2 (08:24→21:15)
--- NOTE | 2025-06-17 11:25 | P.CONCA_ITS ---
<Statement entered by Julio C Yoo MD - 06/20/25 10:45> The service was provided by the the nurse practitioner independently. i was available in the hospital in case I was needed Assessment and Plan Assessment and plan (1) Cardiomyopathy: Code(s): I42.9 - Cardiomyopathy, unspecified Status: Acute Assessment and Plan: New diagnosis severe cardiomyopathy with EF 20-25%. Etiology is unknown at this point. * He needs a significant amount of diuresis. Continue furosemide 40 mg IV b.i.d. * Will make the following adjustments to medications to optimize GDMT: * Will shift losartan to Entresto 24-26 mg b.i.d. * Discontinue amlodipine * Continue metoprolol succinate 25 mg daily * Start spironolactone 25 mg daily * Will add Jardiance when he has diuresed more * Will plan for coronary angiogram prior to hospital discharge. Timing of this to be determined by his volume status. * He will need a LifeVest prior to discharge (2) CHF (congestive heart failure): Qualifiers: Heart failure chronicity: acute Heart failure type: systolic Qualified Code(s): I50.21 - Acute systolic (congestive) heart failure Code(s): I50.9 - Heart failure, unspecified Status: Acute Assessment and Plan: Acute exacerbation of systolic heart failure. * Continue IV furosemide 40 mg IV b.i.d. * Strict intake and output * Daily weights * CHF counseling (3) Paroxysmal atrial fibrillation: Code(s): I48.0 - Paroxysmal atrial fibrillation Status: Chronic Assessment and Plan: He has paroxysmal atrial fibrillation on anticoagulation with Xarelto and rate controlled. * Continue metoprolol for rate control * Given his severe cardiomyopathy, I think that he would benefit from hinduism of sinus rhythm. We will plan for cardioversion later on in the week when he is more stable from a volume status * He is on Xarelto as an outpatient. However, given plan for left heart catheterization later this week, will transition him to heparin drip (4) Diabetes mellitus: Qualifiers: Diabetes mellitus complication status: without complication Diabetes mellitus fpc insulin use: without fpc use Diabetes mellitus type: t ype 2 Qualified Code(s): E11.9 - Type 2 diabetes mellitus without complications Code(s): E11.9 - Type 2 diabetes mellitus without complications Status: Chronic Assessment and Plan: Management per hospitalist. History of Present Illness History of Present Illness Consult date/time: 06/17/25 11:25 Requesting physician: Ruba Lopez MD Consult reason: atrial fibrillation and congestive heart failure Reason For Visit: New Onset Afib/Cardiomyopathy Narrative: Duarte Hernandez is a 69-year-old male with atrial fibrillation, hyperlipidemia, hypertension, type 2 diabetes mellitus, and stroke. This is a patient who was sent to the emergency department from his primary care doctor's office because of lower extremity swelling. Patient reports being sick with pneumonia about a month ago and since that time has had increasing lower extremity edema. He denies any previous history of congestive heart failure. He denies having any shortness of breath, orthopnea, palpitations, syncope, or presyncope. An outpatient echocardiogram was performed which revealed severely reduced systolic function with EF 20-25%. Despite being placed on Lasix, he continued to accumulate fluid. He has been placed on IV furosemide here and is diuresing well. At the time of my evaluation, he is sitting comfortably in the chair and does not have any active complaints aside from being hungry. Review of Systems 2 Review of Systems: All systems reviewed & are unremarkable except as noted in HPI and below PMFSH Past Medical History Medical History CVA (cerebral vascular accident) 2017 Basal cell carcinoma of right forearm Paroxysmal atrial fibrillation Coronary artery disease Hyperlipidemia CHF (congestive heart failure) Rhabdomyolysis Ex-smoker Chronic cough Colon cancer screening declined Controlled gout Hypertension Diabetes mellitus Surgical History Surgical History History of appendectomy Family History Family History Mother Diabetes mellitus Father Family history of cardiovascular disease Acute myocardial infarction Hypertension Grandparent Family history of cardiovascular disease Social History Social History Smoking packs per day: 3 Smoking cigarettes per day: 60.0 Years smoked: 32 Smoking pack-years: 96.00 Smoking status: Never smoker Tobacco type: cigarettes Second hand tobacco smoke exposure: Yes Smoking end date: 10/30/94 Alcohol intake: never Drinks per week: 20 Substance use: never Substance use type: does not use Last use: has not drank in one year Lack of Transportation: No Lack of Food: Never True Current Housing: I Have Housing Concerned About Future Housing: No Difficulty Paying Gas/Electric Bills: No Difficulty Paying for Meds: No Currently Unemployed: No Education: Grade School Difficulty w/ Childcare or Family Care: No Living arrangements: with family Occupation/Education: retired Gender identity (if verbalized by the patient): Male Spiritual care concerns: No Agree to blood products: Yes Meds Home Medications and Allergies Home Medications ?Medication ?Instructions ?Recorded ?Confirmed ?Type glucosamine-chondroitin 500 mg-400 1 tablet PO BID 03/1806/16/25 History mg tablet ascorbic acid (vitamin C) 100 mg 100 mg PO DAILY 08/1906/16/25 History tablet benzonatate 100 mg capsule 100 mg PO TID PRN cough #30 caps 08/23/23 06/16/25 Rx blood sugar diagnostic (Accu-Chek #100 ea 08/23/23 Rx Guide test strips) blood-glucose meter (Accu-Chek #1 ea 08/23/23 06/16/25 Rx Guide Glucose Meter) lancets (Accu-Chek Softclix #100 ea 08/25/23 06/16/25 Rx Lancets) allopurinol 300 mg tablet 300 mg PO DAILY #90 tabs 09/2206/16/25 Rx glipizide 10 mg tablet, extended 10 mg PO BID #180 tab s 12/17/24 06/16/25 Rx release 24 hr potassium chloride 10 mEq 10 meq PO DAILY #90 caps 06/16/25 Rx capsule,extended release amlodipine 10 mg tablet 10 mg PO DAILY #90 tabs 12/2806/16/25 Rx atorvastatin 10 mg tablet 10 mg PO DAILY #90 tabs 0306/16/25 Rx losartan 100 mg tablet 100 mg PO DAILY #90 tabs 10/2306/16/25 Rx blood-glucose sensor (FreeStyle #2 ea 05/20/25 5 Rx Radha 3 Plus Sensor device) blood-glucose,bulk receiver,cont #1 ea 05/20/25 06/16/25 Rx (FreeStyle Radha 3 [place]) pen needle, diabetic 33 gauge x #100 ea 05/20/2506/16 Rx 5/16 metoprolol succinate 25 mg 25 mg PO DAILY #30 tabs 06/16/25 Rx tablet,extended release 24 hr rivaroxaban 20 mg tablet (Xarelto) 20 mg PO DAILY #30 tabs 05/22/25 06/16/25 Rx insulin glargine 100 unit/mL (3 15 unit (0.15 mL) subc ut QAM #15 mL 05/30/25 06/16/25 Rx mL) subcutaneous pen (Lantus Solostar U-100 Insulin) albuterol sulfate 90 mcg/actuation 1 puff inhalation Q 4H PRN 06/04/25 06/16/25 Rx aerosol inhaler (Ventolin HFA) shortness of breath or wheezing #8.5 grams furosemide 40 mg tablet (Lasix) 40 mg PO BID #60 tabs 06/04/25 06/16/25 Rx Allergies Allergy/AdvReac Type Severity Reaction Status Date / Time No Known Allergies Allergy Verified 06/16/25 18:48 Vital Signs Vital Signs - 24 hr 06/16/25 12:27 06/16/25 15:22 06/16/25 15:35 Temperature 36.8 C 36.7 C Pulse Rate 114 H 59 L Respiratory Rate 20 17 21 H Blood Pressure 139/66 106/70 Pulse Oximetry 100 98 Oxygen Delivery Room Air 06/16/25 17:12 06/16/25 17:32 06/16/25 18:28 Temperature 36.6 C Pulse Rate 110 H 95 107 H Respiratory Rate 18 20 20 Blood Pressure 127/63 131/94 H 113/71 Pulse Oximetry 95 96 100 Oxygen Delivery 06/16/25 20:00 06/16/25 20:00 06/16/25 20:00 Temperature 36.6 C Pulse Rate 112 H 111 H Respiratory Rate 20 Blood Pressure 100/80 Pulse Oximetry 94 96 Oxygen Delivery Room Air 06/16/25 21:22 06/16/25 22:00 06/16/25 22:27 Temperature Pulse Rate 117 H 108 H 125 H Respiratory Rate Blood Pressure Pulse Oximetry Oxygen Delivery 06/16/25 23:49 06/17/25 00:00 06/17/25 00:00 Temperature 36.5 C Pulse Rate 114 H 104 H Respiratory Rate 20 Blood Pressure 108/76 Pulse Oximetry 96 97 Oxygen Delivery Room Air 06/17/25 02:00 06/17/25 04:00 06/17/25 04:00 Temperature Pulse Rate 94 112 H Respiratory Rate Blood Pressure Pulse Oximetry 97 Oxygen Delivery Room Air 06/17/25 05:00 06/17/25 06:00 06/17/25 08:00 Temperature 36.6 C 36.5 C Pulse Rate 106 H 109 H 97 Respiratory Rate 20 16 Blood Pressure 112/76 119/83 Pulse Oximetry 99 98 Oxygen Delivery 06/17/25 08:00 06/17/25 08:00 06/17/25 08:22 Temperature Pulse Rate 104 H 104 H 104 H Respiratory Rate 16 Blood Pressure Pulse Oximetry 98 Oxygen Delivery Room Air Exam 2 Const: General: comfortable, no acute distress, alert and awake O rientation/consciousness: patient oriented x3 HENMT: Head: normal to inspection Eyes: General: appearance normal, both eyes and all related structures P upils: Equal, round and reactive pupils present Neck: Neck: normal visual inspection and supple Carotids: normal carotid upstroke Other: Unable to assess for JVD given body habitus. Resp: Effort & Inspection: normal respiratory effort Auscultation: not clear to auscultation bilaterally and rales Cardio: Rate: regular rate Rhythm: abnormal rhythm irregularly irregular Heart sounds: S1 normal heart sound present, S2 normal heart sound present and no murmurs GI: Inspection: distended Auscultation: normal bowel sounds Skin: General skin exam: normal color Neuro: General: patient oriented x3 Cranial nerves: Yes Equal, round and reactive pupils present Extrem: General: abnormal to inspection, edema and pedal edema Other: 2-3+ bilater pretibial and pedal edema. Erythema bilateral lower legs Psych: Appearance: grossly normal Mental Status: mental status grossly normal Results Labs and Meds 06/16/25 13:56 06/16/25 13:56 Lab results: Cardiac Enzymes 06/16/25 06/16/25 06/16/25 Range/Units 13:56 16:39 19:40 AST 22 (17-59) U/L Troponin I 0.013 0.013 0.014 (0.000-0.034) ng/mL Coagulation 06/16/25 Range/Units 13:56 PT 20.8 H (11.1-14.7) Seconds APTT 28.5 (22.3-36.8) Seconds CBC 06/16/25 Range/Units 13:56 WBC 7.9 (4.5-10.0) K/mm3 RBC 4.66 (4.6-6.20) M/mm3 Hgb 13.7 L (14.0-18.0) g/dL Hct 43.8 (42.0-52.0) % Plt Count 153 (150-375) k/mm3 Lymph # (Auto) 1.30 (0.9-3.2) K/mm3 Evans # (Auto) 0.4 (0.1-0.6) K/mm3 Eos # (Auto) 0.0 (0-0.3) K/mm3 Baso # (Auto) 0.0 (0.0-0.1) K/mm3 Comprehensive Metabolic Panel 06/16/25 Range/Units 13:56 Sodium 140 (137-145) mmol/L Potassium 3.8 (3.4-5.0) mmol/L Chloride 103 (98-107) mmol/L Carbon Dioxide 28 (22-30) mmol/L BUN 20 (9-20) mg/dL Creatinine 0.94 (0.7-1.3) mg/dL Glucose 192 H (65-110) mg/dL Calcium 8.9 (8.4-10.2) mg/dL AST 22 (17-59) U/L ALT 21 (6-50) U/L Alkaline Phosphatase 87 (38-126) U/L Total Protein 6.6 (6.3-8.2) g/dL Albumin 3.7 (3.5-5.1) g/dL Intake and Output 06/16/25 06/17/25 06/17/25 23:59 07:59 15:59 Output Total 550 Balance -550 Output: Urine 550 Other: Intake, Other Source NPO # Unmeasured Voids 1 Number of Bowel Movements Today 1 Patient Weight 06/17/25 23:59 Weight 125.9 kg Imaging and Cardiology Echo: report reviewed
[2025-06-17 12:58] LABS: Hematocrit 44.7 % (42.0-52.0); Hemoglobin 13.9 g/dL (14.0-18.0); Immature Granulocyte Percent A 0.5 % (0-0.5); Lymphocytes Absolute Auto 1.37 K/mm3 (0.9-3.2); Mean Corpuscular HGB Conc 31.1 g/dl (32-36); Mean Corpuscular Hemoglobin 29.5 pg (26-34); Mean Corpuscular Volume 94.9 fl (80-100); Nucleated Red Blood Cells Absolute Auto 0.000 K/mm3 (0.0-0.012); Nucleated Red Blood Cells Perc 0.0 % (0.0-0.2); Platelet Count Result 155 k/mm3 (150-375); Red Blood Count 4.71 M/mm3 (4.6-6.20); White Blood Count 7.7 K/mm3 (4.5-10.0)
[2025-06-17] MEDS: PHARMACIST COMMUNICATION ORDER 1 EACH XX (13:30)
--- NOTE | 2025-06-17 13:32 | PC.NURSE ---
Heparin IV drip was initially started per pharmacy orders. The pharmacy changed the orders to then start the medication at 2100pm. The medication was immediately stopped and placed on hold to restart at 2100pm gonsalo.
[2025-06-17 13:52] LABS: INR 1.3; Partial Thromboplastin Time 26.4 Seconds (22.3-36.8); Prothrombin Time 16.3 Seconds (11.1-14.7)
[2025-06-17] MEDS: INSULIN ASPART (*BKC) 100 UNITS/ML SUB-Q (15:46)
--- NOTE | 2025-06-17 17:25 | P.PNIM_ITS ---
Progress Note: A&P Assessment and Plan (1) CHF (congestive heart failure): Qualifiers: Heart failure chronicity: acute Heart failure type: systolic Qualified Code(s): I50.21 - Acute systolic (congestive) heart failure Code(s): I50.9 - Heart failure, unspecified Status: Acute Assessment and Plan: - acute exacerbation of CHF - BNP 3890 - most recent echo (06/13/25): systolic function was severely globally reduced, EF of 20-25%, diastolic function abnormal, AFib, and mild valvular disease with no pulmonary hypertension - on Lasix 40 mg BID PO outpatient, will start Lasix 40 mg IV BID - monitor I&Os and daily weights - trend renal function on Metoprolol 25mg For cardiac cath today cardiology following (2) Diabetes mellitus: Qualifiers: Diabetes mellitus type: type 2 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 Hold glipizide. - correct regimen ordered - high dose TIDWM, based off BMI - A1C 8.5% on 05/20/2025 (3) Paroxysmal atrial fibrillation: Code(s): I48.0 - Paroxysmal atrial fibrillation Status: Chronic Assessment and Plan: - continue home medications: Metoprolol 25 mg ER and Xarelto. (4) Hypertension: Qualifiers: Hypertension type: essential hypertension Qualified Code(s): I10 - Essential (primary) hypertension Code(s): I10 - Essential (primary) hypertension Status: Chronic Assessment and Plan: - chronic, currently 100/80 - continue home medications: Losartan, Amlodipine - monitor Plan Patient additionally has erythematous rash to bilateral lower extremities that appears consistent with cutaneous candidiasis. Ketoconazole topical ordered. Diet: Heart healthy, NPO midnight GI Prophylaxis: N/a DVT Prophylaxis: Xarelto IV fluids: None Lines/Tubes: Peripheral IV Code Status: Full code Subjective Date/time seen: 06/17/25 17:25 Interval history: Comfortable at bedside Review of Systems Review of Systems: All systems reviewed & are unremarkable except as noted in HPI and below Exam Const: General: comfortable and no acute distress Other: , male, nontoxic appearance HENMT: Face/Nose/Sinus: Normal nares present Mouth: Yes moist mucous membranes Eyes: General: appearance normal, both eyes and all related structures Sclera: sclerae normal Pupils: Equal, round and reactive pupils present EOM: EOMs intact bilaterally Resp: Effort & Inspection: normal respiratory effort Auscultation: clear to auscultation bilaterally Cardio: Rate: tachycardic Rhythm: abnormal rhythm Other: Normal murmur or rub. GI: Other: Abdomen tight and rounded but nontender. Normoactive bowel sounds in all quadrants. Skin: General skin exam: normal color Wounds: no wounds Other: Erythematous rash to bilateral lower extremities with no open wound is and mild scaling. Neuro: Cranial nerves: Yes Equal, round and reactive pupils present Speech: normal speech Motor exam (neuro): 5/5 motor strength present throughout Sensory Exam: normal sensation Other: A&O x4 Extrem: Other: 2 to 3+ pitting edema to bilateral lower extremity eyes starting at thigh extending to ankles, symmetric. Very tight on exam. Psych: Mental Status: mental status grossly normal Affect: normal affect Other: Good insight and judgment, very pleasant Objective Data Vital Signs Vital Signs: Vital Signs - 24 hr 06/16/25 17:32 06/16/25 18:28 06/16/25 20:00 Temperature 97.9 F 97.8 F Pulse Rate 95 107 H 112 H Respiratory Rate 20 20 20 Blood Pressure 131/94 H 113/71 100/80 Pulse Oximetry 96 100 94 Oxygen Delivery 06/16/25 20:00 06/16/25 20:00 06/16/25 21:22 Temperature Pulse Rate 111 H 117 H Respiratory Rate Blood Pressure Pulse Oximetry 96 Oxygen Delivery Room Air 06/16/25 22:00 06/16/25 22:27 06/16/25 23:49 Temperature Pulse Rate 108 H 125 H Respiratory Rate Blood Pressure Pulse Oximetry 96 Oxygen Delivery Room Air 06/17/25 00:00 06/17/25 00:00 06/17/25 02:00 Temperature 97.7 F Pulse Rate 114 H 104 H 94 Respiratory Rate 20 Blood Pressure 108/76 Pulse Oximetry 97 Oxygen Delivery 06/17/25 04:00 06/17/25 04:00 06/17/25 05:00 Temperature 97.8 F Pulse Rate 112 H 106 H Respiratory Rate 20 Blood Pressure 112/76 Pulse Oximetry 97 99 Oxygen Delivery Room Air 06/17/25 06:00 06/17/25 08:00 06/17/25 08:00 Temperature 97.7 F Pulse Rate 109 H 97 104 H Respiratory Rate 16 16 Blood Pressure 119/83 Pulse Oximetry 98 98 Oxygen Delivery Room Air 06/17/25 08:00 06/17/25 08:22 06/17/25 10:00 Temperature Pulse Rate 104 H 104 H 104 H Respiratory Rate Blood Pressure Pulse Oximetry Oxygen Delivery 06/17/25 11:49 06/17/25 12:00 06/17/25 12:00 Temperature 97.9 F Pulse Rate 116 H 116 H 103 H Respiratory Rate 16 16 Blood Pressure 96/70 L Pulse Oximetry 99 99 Oxygen Delivery Room Air 06/17/25 15:51 Temperature 97.6 F Pulse Rate 107 H Respiratory Rate 20 Blood Pressure 95/76 L Pulse Oximetry 99 Oxygen Delivery Intake/Output Intake/Output: Intake & Output 06/14/25 06/15/25 06/16/25 06/17/25 23:59 23:59 23:59 23:59 Intake Total 240 Output Total 550 Balance -550 240 Meds/Results Medications: Active Medications Generic Name Dose Route Start Last Admin Trade Name Freq PRN Reason Stop Dose Admin Albuterol 2 puff 06/16/25 22:11 Albuterol Sulfate (*Sp) Aerosol 1 Puff INHALATION Q4H PRN shortness of breath or wheezing Allopurinol 300 mg 06/17/25 08:00 06/17/25 08:22 Allopurinol 300 Mg Tablet PO 300 mg DAILY@0800 ALYSSA Administration Ascorbic Acid 125 mg 06/17/25 09:00 06/17/25 08:24 Ascorbic Acid 125 Mg Tablet BY MOUTH 125 mg DAILY ALYSSA Administration Atorvastatin Calcium 10 mg 06/17/25 09:00 06/17/25 08:22 Atorvastatin 10 Mg Tablet PO 10 mg DAILY ALYSSA Administration Benzonatate 100 mg 06/16/25 22:11 Benzonatate 100 Mg Capsule PO TID PRN cough Dextrose 12.5 gm 06/16/25 22:14 Dextrose 50% 25 Gm/50 Ml Syringe IV PUSH PRN PRN Hypoglycemia Protocol Furosemide 40 mg 06/16/25 21:00 06/17/25 08:23 Furosemide Inj 40 Mg/4 Ml Vial IV PUSH 40 mg Q12HR ALYSSA Administration Glucagon 1 mg 06/16/25 22:14 Glucagon For Inj 1 Mg Vial IM PRN PRN Hypoglycemia Protocol Glucose 15 gm 06/16/25 22:14 Glucose Oral Gel 15 Gm Of Glucse In 37.5 Gm Tube PO PRN PRN Hypoglycemia Protocol Heparin Sodium (Porcine) 7,500 units 06/17/25 21:00 Heparin Sodium 5,000 Units/Ml Vial IV PUSH PRN PRN aPTT less than 55 seconds Heparin Sodium (Porcine) 4,000 units 06/17/25 21:00 Heparin Sodium 5,000 Units/Ml Vial IV PUSH PRN PRN aPTT 55 - 70 seconds Dextrose 1,000 mls @ 100 mls/hr 06/16/25 22:14 Dextrose 5% 1,000 Ml IVPB PRN PRN Hypoglycemia Protocol Heparin Sodium/Dextrose 25,000 units in 250 mls @ 15 mls/hr 06/17/25 21:00 Heparin Sodium/D5w 100 Units/Ml IV CONT .[id number] [facility] Protocol 1,500 UNITS/HR Insulin Aspart 4 - 8 units 06/17/25 08:00 06/17/25 15:46 Insulin Aspart (*Bkc) 100 Units/Ml SUB-Q 4 units TIDWM [facility] Administration Protocol Insulin Glargine 15 units 06/17/25 09:00 06/17/25 08:23 Insulin Glargine (*Bkc) 100 Units/Ml SUB-Q Not Given QAM [facility] Metoprolol Succinate 25 mg 06/17/25 09:00 06/17/25 08:22 Metoprolol Succinate Ext Rel 25 Mg Tabcr PO 25 mg DAILY [facility] Administration Miconazole Nitrate 1 applic 06/17/25 09:00 06/17/25 08:24 Miconazole Nitrate 2% Cream 30 Gm Tube TOPICAL 1 applic Q12HR [facility] Administration Ondansetron HCl 4 mg 06/16/25 16:23 Ondansetron Inj 4 Mg/2 Ml Vial IV PUSH Q4H PRN Nausea Potassium Chloride 10 meq 06/17/25 08:00 06/17/25 08:22 Potassium Chloride 10 Meq Er Tablet PO 10 meq DAILY@0800 [facility] Administration Sacubitril/Valsartan 1 tab 06/17/25 21:00 Sacubitril/Valsartan 24-26 Mg Tablet PO Q12HR [facility] Radiology Results: ITS Impressions Chest X-Ray 06/16/25 14:25 IMPRESSION: 1. Bilateral airspace opacities and pulmonary vascular congestion with cardiomegaly. Findings may represent CHF versus atypical multifocal pneumonia. Clinical correlation is recommended. Short interval follow-up chest radiograph is recommended after appropriate clinical therapy to document resolution/stability. 2. Small right pleural effusion. Labs Labs: Laboratory Results - last 24 hr 06/16/25 06/16/25 06/17/25 19:40 21:21 07:33 WBC RBC Hgb Hct MCV MCH MCHC RDW Plt Count MPV Immature Gran % (Auto) Neut % (Auto) Lymph % (Auto) [place] % (Auto) Eos % (Auto) Baso % (Auto) Lymph # (Auto) [place] # (Auto) Eos # (Auto) Baso # (Auto) Abs Immat Gran (auto) Absolute Neuts (auto) Absolute Nucleated RBC Nucleated RBC % PT INR APTT POC Capillary Glucose 150 H 155 H Phosphorus 4.4 Magnesium 2.1 Troponin I 0.014 06/17/25 06/17/25 06/17/25 11:17 12:46 15:32 WBC 7.7 RBC 4.71 Hgb 13.9 L Hct 44.7 MCV 94.9 MCH 29.5 MCHC 31.1 L RDW 16.3 H Plt Count 155 MPV 11.7 H Immature Gran % (Auto) 0.5 Neut % (Auto) 72.9 Lymph % (Auto) 17.9 L [place] % (Auto) 5.9 Eos % (Auto) 2.3 Baso % (Auto) 0.5 Lymph # (Auto) 1.37 [place] # (Auto) 0.5 Eos # (Auto) 0.2 Baso # (Auto) 0.0 Abs Immat Gran (auto) 0.04 H Absolute Neuts (auto) 5.6 Absolute Nucleated RBC 0.000 Nucleated RBC % 0.0 PT 16.3 H D INR 1.3 APTT 26.4 POC Capillary Glucose 194 H 221 H Phosphorus Magnesium Troponin I Quality VTE Prophylaxis VTE prophylaxis: pharmacologic ordered
[2025-06-17] MEDS: SACUBITRIL/VALSARTAN 24-26 MG TABLET 1 TAB PO (21:10)
[2025-06-17] MEDS: HEPARIN SOD/D5W 100 UNITS/ML 25,000 UNITS/250 ML BAG 15 UNITS IV CONT (21:11)
[2025-06-18] VITALS (20 sets, daily range): BP systolic 100–113; BP diastolic 54–94; PULSE 58–124; RESP 12–20; TEMP 36.4–36.7; O2SAT 94–100
[2025-06-18 03:16] LABS: Hematocrit 44.3 % (42.0-52.0); Hemoglobin 13.9 g/dL (14.0-18.0); Immature Granulocyte Percent A 0.4 % (0-0.5); Lymphocytes Absolute Auto 1.70 K/mm3 (0.9-3.2); Mean Corpuscular HGB Conc 31.4 g/dl (32-36); Mean Corpuscular Hemoglobin 29.3 pg (26-34); Mean Corpuscular Volume 93.5 fl (80-100); Nucleated Red Blood Cells Absolute Auto 0.000 K/mm3 (0.0-0.012); Nucleated Red Blood Cells Perc 0.0 % (0.0-0.2); Platelet Count Result 146 k/mm3 (150-375); Red Blood Count 4.74 M/mm3 (4.6-6.20); White Blood Count 7.5 K/mm3 (4.5-10.0)
[2025-06-18 03:27] LABS: Partial Thromboplastin Time 55.9 Seconds (22.3-36.8)
[2025-06-18 03:36] LABS: Alanine Aminotransferase 17 U/L (6-50); Albumin Level 3.7 g/dL (3.5-5.1); Alkaline Phosphatase 94 U/L (38-126); Anion Gap 9 mmol/L (4-12); Aspartate Amino Transferase 22 U/L (17-59); Bilirubin,Total 0.9 mg/dL (0.2-1.3); Blood Urea Nitrogen 16 mg/dL (9-20); Calcium 8.5 mg/dL (8.4-10.2); Carbon Dioxide 29 mmol/L (22-30); Chloride 100 mmol/L (98-107); Estimated CRCL calculation 86 ml/min; Estimated Glomerular Filt Rate > 60; Glucose 178 mg/dL (65-110); Magnesium 1.7 mg/dL (1.6-2.3); Potassium 3.2 mmol/L (3.4-5.0); Sodium 138 mmol/L (137-145); Total Protein 6.4 g/dL (6.3-8.2)
[2025-06-18] MEDS: INSULIN GLARGINE (*BKC) 100 UNITS/ML 15 UNITS SUB-Q (08:00)
[2025-06-18] MEDS: INSULIN ASPART (*BKC) 100 UNITS/ML SUB-Q ×2 (08:00→11:37)
[2025-06-18] MEDS: FUROSEMIDE INJ 40 MG/4 ML VIAL IV PUSH ×3 (08:01→20:36)
[2025-06-18] MEDS: POTASSIUM CHLORIDE 10 MEQ ER TABLET PO (08:01)
[2025-06-18] MEDS: SACUBITRIL/VALSARTAN 24-26 MG TABLET 1 TAB PO ×2 (08:06→20:36)
[2025-06-18] MEDS: ASCORBIC ACID 125 MG TABLET BY MOUTH (08:06)
[2025-06-18] MEDS: METOPROLOL SUCCINATE EXT REL 25 MG TABCR PO (08:06)
[2025-06-18] MEDS: ATORVASTATIN 10 MG TABLET PO (08:06)
--- NOTE | 2025-06-18 10:11 | P.PNCA_ITS ---
Progress Note: A&P Assessment and Plan (1) Cardiomyopathy: Code(s): I42.9 - Cardiomyopathy, unspecified Status: Acute Assessment and Plan: -give 1 dose of 5 mg oral metolazone -continue metoprolol succinate 25 daily -continue Entresto 24/ BID -continue spironolactone 25 mg once daily -coronary angiogram when euvolemic (2) CHF (congestive heart failure): Qualifiers: Heart failure chronicity: acute Heart failure type: systolic Qualified Code(s): I50.21 - Acute systolic (congestive) heart failure Code(s): I50.9 - Heart failure, unspecified Status: Acute Assessment and Plan: Acute exacerbation of systolic heart failure. * Continue IV furosemide 40 mg IV b.i.d, one dose of 5 mg metolazone * Strict intake and output * Daily weights * CHF counseling (3) Paroxysmal atrial fibrillation: Code(s): I48.0 - Paroxysmal atrial fibrillation Status: Chronic Assessment and Plan: He has paroxysmal atrial fibrillation on anticoagulation with Xarelto and rate controlled. * Continue metoprolol for rate control * Given his severe cardiomyopathy, I think that he would benefit from uatsdin of sinus rhythm. We will plan for cardioversion later on in the week when he is euvolemic * Continue heparin for now, DOAC as an outpatient (4) Diabetes mellitus: Qualifiers: Diabetes mellitus type: type 2 Diabetes mellitus emt intermediate insulin use: without emt intermediate use Diabetes mellitus complication status: without complication Qualified Code(s): E11.9 - Type 2 diabetes mellitus without complications Code(s): E11.9 - Type 2 diabetes mellitus without complications Status: Chronic Assessment and Plan: Management per hospitalist. Subjective Date/time seen: 06/18/25 10:11 Interval history: No acute events overnight Denies chest pain Making urine Review of Systems Review of Systems: All systems reviewed & are unremarkable except as noted in HPI and below Exam Const: General: comfortable, no acute distress, alert and awake Orientation/consciousness: patient oriented x3 HENMT: Head: normal to inspection Eyes: General: appearance normal, both eyes and all related structures Pupils: Equal, round and reactive pupils present Neck: Neck: normal visual inspection and supple Carotids: normal carotid upstroke Other: Unable to assess for JVD given body habitus. Resp: Effort & Inspection: normal respiratory effort Auscultation: not clear to auscultation bilaterally and rales Cardio: Rate: regular rate Rhythm: regular rhythm and abnormal rhythm irregularly irregular Heart sounds: S1 normal heart sound present, S2 normal heart sound present and no murmurs GI: Inspection: distended Auscultation: normal bowel sounds Skin: General skin exam: normal color Neuro: General: patient oriented x3 Cranial nerves: Yes Equal, round and reactive pupils present Extrem: General: abnormal to inspection, edema and pedal edema Other: 2-3+ bilater pretibial and pedal edema. Erythema bilateral lower legs Psych: Appearance: grossly normal Mental Status: mental status grossly normal Objective Data Vital Signs Vital Signs: Vital Signs - 24 hr 06/17/25 11:49 06/17/25 12:00 06/17/25 12:00 Temperature 36.6 C Pulse Rate 116 H 116 H 103 H Respiratory Rate 16 16 Blood Pressure 96/70 L Pulse Oximetry 99 99 Oxygen Delivery Room Air 06/17/25 14:00 06/17/25 15:51 06/17/25 16:00 Temperature 36.4 C Pulse Rate 106 H 107 H 103 H Respiratory Rate 20 Blood Pressure 95/76 L Pulse Oximetry 99 Oxygen Delivery 06/17/25 16:00 06/17/25 18:00 06/17/25 20:00 Temperature 36.5 C Pulse Rate 103 H 104 H 98 Respiratory Rate 20 20 Blood Pressure 116/77 Pulse Oximetry 99 95 Oxygen Delivery Room Air 06/17/25 20:00 06/17/25 20:00 06/17/25 22:00 Temperature Pulse Rate 99 101 H 105 H Respiratory Rate 20 Blood Pressure Pulse Oximetry 99 Oxygen Delivery Room Air 06/17/25 23:47 06/18/25 00:00 06/18/25 00:00 Temperature Pulse Rate 115 H 108 H 97 Respiratory Rate 20 Blood Pressure 108/78 Pulse Oximetry 96 99 Oxygen Delivery Room Air 06/18/25 02:00 06/18/25 03:34 06/18/25 03:48 Temperature 36.6 C Pulse Rate 119 H 124 H 101 H Respiratory Rate 20 Blood Pressure 103/61 Pulse Oximetry 98 99 Oxygen Delivery Room Air 06/18/25 04:00 06/18/25 06:00 06/18/25 07:37 Temperature 36.4 C Pulse Rate 110 H 113 H 101 H Respiratory Rate 12 Blood Pressure 100/57 L Pulse Oximetry 100 Oxygen Delivery 06/18/25 08:00 06/18/25 08:06 06/18/25 08:29 Temperature Pulse Rate 101 H 118 H Respiratory Rate 12 Blood Pressure Pulse Oximetry 100 96 Oxygen Delivery Room Air Room Air Intake/Output Intake/Output: Intake & Output 06/15/25 06/16/25 06/17/25 06/18/25 23:59 23:59 23:59 23:59 Intake Total 1150 298.5 Output Total 550 1100 Balance -550 1150 -801.5 Meds/Results Medications: Active Medications Generic Name Dose Route Start Last Admin Trade Name Freq PRN Reason Stop Dose Admin Albuterol 2 puff 06/16/25 22:11 Albuterol Sulfate (*Sp) Aerosol 1 Puff INHALATION Q4H PRN shortness of breath or wheezing Allopurinol 300 mg 06/17/25 08:00 06/18/25 08:01 Allopurinol 300 Mg Tablet PO 300 mg DAILY@0800 ALYSSA Administration Ascorbic Acid 125 mg 06/17/25 09:00 06/18/25 08:06 Ascorbic Acid 125 Mg Tablet BY MOUTH 125 mg DAILY ALYSSA Administration Atorvastatin Calcium 10 mg 06/17/25 09:00 06/18/25 08:06 Atorvastatin 10 Mg Tablet PO 10 mg DAILY ALYSSA Administration Benzonatate 100 mg 06/16/25 22:11 Benzonatate 100 Mg Capsule PO TID PRN cough Dextrose 12.5 gm 06/16/25 22:14 Dextrose 50% 25 Gm/50 Ml Syringe IV PUSH PRN PRN Hypoglycemia Protocol Furosemide 40 mg 06/16/25 21:00 06/18/25 08:01 Furosemide Inj 40 Mg/4 Ml Vial IV PUSH 40 mg Q12HR ALYSSA Administration Glucagon 1 mg 06/16/25 22:14 Glucagon For Inj 1 Mg Vial IM PRN PRN Hypoglycemia Protocol Glucose 15 gm 06/16/25 22:14 Glucose Oral Gel 15 Gm Of Glucse In 37.5 Gm Tube PO PRN PRN Hypoglycemia Protocol Heparin Sodium (Porcine) 7,500 units 06/17/25 21:00 Heparin Sodium 5,000 Units/Ml Vial IV PUSH PRN PRN aPTT less than 55 seconds Heparin Sodium (Porcine) 4,000 units 06/17/25 21:00 06/18/25 03:38 Heparin Sodium 5,000 Units/Ml Vial IV PUSH 4,000 units PRN PRN Administration aPTT 55 - 70 seconds Dextrose 1,000 mls @ 100 mls/hr 06/16/25 22:14 Dextrose 5% 1,000 Ml IVPB PRN PRN Hypoglycemia Protocol Heparin Sodium/Dextrose 25,000 units in 250 mls @ 17 mls/hr 06/17/25 21:00 06/18/25 03:45 Heparin Sodium/D5w 100 Units/Ml IV CONT 1,700 units/hr .[id number] ALYSSA 17 mls/hr Protocol Titration 1,700 UNITS/HR Insulin Aspart 4 - 8 units 06/17/25 08:00 06/18/25 08:00 Insulin Aspart (*Bkc) 100 Units/Ml SUB-Q 4 units TIDWM [facility] Administration Protocol Insulin Glargine 15 units 06/17/25 09:00 06/18/25 08:00 Insulin Glargine (*Bkc) 100 Units/Ml SUB-Q 15 units QAM ALYSSA Administration Metoprolol Succinate 25 mg 06/17/25 09:00 06/18/25 08:06 Metoprolol Succinate Ext Rel 25 Mg Tabcr PO 25 mg DAILY ALYSSA Administration Miconazole Nitrate 1 applic 06/17/25 09:00 06/17/25 21:15 Miconazole Nitrate 2% Cream 30 Gm Tube TOPICAL 1 applic Q12HR ALYSSA Administration Ondansetron HCl 4 mg 06/16/25 16:23 Ondansetron Inj 4 Mg/2 Ml Vial IV PUSH Q4H PRN Nausea Potassium Chloride 10 meq 06/17/25 08:00 06/18/25 08:01 Potassium Chloride 10 Meq Er Tablet PO 10 meq DAILY@0800 ALYSSA Administration Sacubitril/Valsartan 1 tab 06/17/25 21:00 06/18/25 08:06 Sacubitril/Valsartan 24-26 Mg Tablet PO 1 tab Q12HR ALYSSA Administration Radiology Results: ITS Impressions Chest X-Ray 06/16/25 14:25 IMPRESSION: 1. Bilateral airspace opacities and pulmonary vascular congestion with cardiomegaly. Findings may represent CHF versus atypical multifocal pneumonia. Clinical correlation is recommended. Short interval follow-up chest radiograph is recommended after appropriate clinical therapy to document re solution/stability. 2. Small right pleural effusion. Labs Labs: Laboratory Results - last 24 hr 06/17/25 06/17/25 06/17/25 11:17 12:46 15:32 WBC 7.7 RBC 4.71 Hgb 13.9 L Hct 44.7 MCV 94.9 MCH 29.5 MCHC 31.1 L RDW 16.3 H Plt Count 155 MPV 11.7 H Immature Gran % (Auto) 0.5 Neut % (Auto) 72.9 Lymph % (Auto) 17.9 L [place] % (Auto) 5.9 Eos % (Auto) 2.3 Baso % (Auto) 0.5 Lymph # (Auto) 1.37 [place] # (Auto) 0.5 Eos # (Auto) 0.2 Baso # (Auto) 0.0 Abs Immat Gran (auto) 0.04 H Absolute Neuts (auto) 5.6 Absolute Nucleated RBC 0.000 Nucleated RBC % 0.0 PT 16.3 H D INR 1.3 APTT 26.4 Sodium Potassium Chloride Carbon Dioxide Anion Gap BUN Creatinine Estim Creat Clear Calc Estimated GFR Glucose POC Capillary Glucose 194 H 221 H Lactic Acid Calcium Magnesium Total Bilirubin AST ALT Alkaline Phosphatase Total Protein Albumin 06/17/25 06/18/25 06/18/25 19:45 03:05 07:12 WBC 7.5 RBC 4.74 Hgb 13.9 L Hct 44.3 MCV 93.5 MCH 29.3 MCHC 31.4 L RDW 16.2 H Plt Count 146 L MPV 11.7 H Immature Gran % (Auto) 0.4 Neut % (Auto) 66.2 Lymph % (Auto) 22.7 [place] % (Auto) 7.0 Eos % (Auto) 3.3 Baso % (Auto) 0.4 Lymph # (Auto) 1.70 [place] # (Auto) 0.5 Eos # (Auto) 0.3 Baso # (Auto) 0.0 Abs Immat Gran (auto) 0.03 Absolute Neuts (auto) 5.0 Absolute Nucleated RBC 0.000 Nucleated RBC % 0.0 PT INR APTT 55.9 H Sodium 138 Potassium 3.2 L Chloride 100 Carbon Dioxide 29 Anion Gap 9 BUN 16 Creatinine 0.92 Estim Creat Clear Calc 86 Estimated GFR > 60 Glucose 178 H POC Capillary Glucose 181 H 206 H Lactic Acid 1.2 Calcium 8.5 Magnesium 1.7 Total Bilirubin 0.9 AST 22 ALT 17 Alkaline Phosphatase 94 Total Protein 6.4 Albumin 3.7
--- NOTE | 2025-06-18 10:23 | PC.NURSE ---
Spoke with Dr. Yoo regarding plan of care for this patient. New orders received and entered by this RN
[2025-06-18 10:29] LABS: Partial Thromboplastin Time 134.4 Seconds (22.3-36.8)
[2025-06-18] MEDS: HEPARIN SOD/D5W 100 UNITS/ML 25,000 UNITS/250 ML BAG 14 UNITS IV CONT (11:42)
--- NOTE | 2025-06-18 15:14 | PM.IMPN ---
Progress Note: A&P Assessment and Plan (1) CHF (congestive heart failure): Qualifiers: Heart failure chronicity: acute Heart failure type: systolic Qualified Code(s): I50.21 - Acute systolic (congestive) heart failure Code(s): I50.9 - Heart failure, unspecified Status: Acute Assessment and Plan: - acute exacerbation of CHF - BNP 3890 - most recent echo (06/13/25): systolic function was severely globally reduced, EF of 20-25%, diastolic function abnormal, AFib, and mild valvular disease with no pulmonary hypertension - on Lasix 40 mg BID PO outpatient, will start Lasix 40 mg IV BID - monitor I&Os and daily weights - trend renal function on Metoprolol 25mg Cardiac cath postponed by cardiology pending further diuresis cardiology following (2) Diabetes mellitus: Qualifiers: Diabetes mellitus complication status: without complication Diabetes mellitus fci insulin use: without custodial supervisor use Diabetes mellitus type: type 2 Qualified Code(s): E11.9 - Type 2 diabetes mellitus without complications Code(s): E11.9 - Type 2 diabetes mellitus without complications Status: Chronic Assessment and Plan: - hypoglycemia protocol - POC blood glucose ACHS - home medication: Continue Lantus 15 units QAM. Hold glipizide. - correct regimen ordered - high dose TIDWM, based off BMI - A1C 8.5% on 05/20/2025 (3) Paroxysmal atrial fibrillation: Code(s): I48.0 - Paroxysmal atrial fibrillation Status: Chronic Assessment and Plan: - continue home medications: Metoprolol 25 mg ER and Xarelto. (4) Hypertension: Qualifiers: Hypertension type: essential hypertension Qualified Code(s): I10 - Essential (primary) hypertension Code(s): I10 - Essential (primary) hypertension Status: Chronic Assessment and Plan: - chronic, currently 100/80 - continue home medications: Losartan, Amlodipine - monitor Plan Patient additionally has erythematous rash to bilateral lower extremities that appears consistent with cutaneous candidiasis. Ketoconazole topical ordered. Diet: Heart healthy, NPO midnight GI Prophylaxis: N/a DVT Prophylaxis: Xarelto Code Status: Full code Subjective Date/time seen: 06/18/25 15:14 Interval history: Comfortable at bedside Review of Systems Review of Systems: All systems reviewed & are unremarkable except as noted in HPI and below Exam Const: General: comfortable and no acute distress Other: , male, nontoxic appearance HENMT: Face/Nose/Sinus: Normal nares present Mouth: Yes moist mucous membranes Eyes: General: appearance normal, both eyes and all related structures Sclera: sclerae normal Pupils: Equal, round and reactive pupils present EOM: EOMs intact bilaterally Resp: Effort & Inspection: normal respiratory effort Auscultation: clear to auscultation bilaterally Cardio: Rate: tachycardic Rhythm: abnormal rhythm Other: Normal murmur or rub. GI: Other: Abdomen tight and rounded but nontender. Normoactive bowel sounds in all quadrants. Skin: General skin exam: normal color Wounds: no wounds Other: Erythematous rash to bilateral lower extremities with no open wound is and mild scaling. Neuro: Cranial nerves: Yes Equal, round and reactive pupils present Speech: normal speech Motor exam (neuro): 5/5 motor strength present throughout Sensory Exam: normal sensation Other: A&O x4 Extrem: Other: 2 to 3+ pitting edema to bilateral lower extremity eyes starting at thigh extending to ankles, symmetric. Very tight on exam. Psych: Mental Status: mental status grossly normal Affect: normal affect Other: Good insight and judgment, very pleasant Objective Data Vital Signs Vital Signs: Vital Signs - 24 hr 06/17/25 15:51 06/17/25 16:00 06/17/25 16:00 Temperature 97.6 F Pulse Rate 107 H 103 H 103 H Respiratory Rate 20 20 Blood Pressure 95/76 L Pulse Oximetry 99 99 Oxygen Delivery Room Air 06/17/25 18:00 06/17/25 20:00 06/17/25 20:00 Temperature 97.7 F Pulse Rate 104 H 98 99 Respiratory Rate 20 20 Blood Pressure 116/77 Pulse Oximetry 95 99 Oxygen Delivery Room Air 06/17/25 20:00 06/17/25 22:00 06/17/25 23:47 Temperature Pulse Rate 101 H 105 H 115 H Respiratory Rate 20 Blood Pressure 108/78 Pulse Oximetry 96 Oxygen Delivery 06/18/25 00:00 06/18/25 00:00 06/18/25 02:00 Temperature Pulse Rate 108 H 97 119 H Respiratory Rate Blood Pressure Pulse Oximetry 99 Oxygen Delivery Room Air 06/18/25 03:34 06/18/25 03:48 06/18/25 04:00 Temperature 97.8 F Pulse Rate 124 H 101 H 110 H Respiratory Rate 20 Blood Pressure 103/61 Pulse Oximetry 98 99 Oxygen Delivery Room Air 06/18/25 06:00 06/18/25 07:37 06/18/25 08:00 Temperature 97.6 F Pulse Rate 113 H 101 H 101 H Respiratory Rate 12 12 Blood Pressure 100/57 L Pulse Oximetry 100 100 Oxygen Delivery Room Air 06/18/25 08:00 06/18/25 08:06 06/18/25 08:29 Temperature Pulse Rate 111 H 118 H Respiratory Rate Blood Pressure Pulse Oximetry 96 Oxygen Delivery Room Air 06/18/25 10:00 06/18/25 11:26 06/18/25 12:00 Temperature 97.8 F Pulse Rate 100 101 H 101 H Respiratory Rate 16 16 Blood Pressure 104/56 L Pulse Oximetry 100 100 Oxygen Delivery Room Air 06/18/25 12:00 06/18/25 14:00 Temperature Pulse Rate 104 H 106 H Respiratory Rate Blood Pressure Pulse Oximetry Oxygen Delivery Intake/Output Intake/Output: Intake & Output 06/15/25 06/16/25 06/17/25 06/18/25 23:59 23:59 23:59 23:59 Intake Total 1150 856.2 Output Total 550 2150 Balance -550 1150 -1293.8 Meds/Results Medications: Active Medications Generic Name Dose Route Start Last Admin Trade Name Freq PRN Reason Stop Dose Admin Albuterol 2 puff 06/16/25 22:11 Albuterol Sulfate (*Sp) Aerosol 1 Puff INHALATION Q4H PRN shortness of breath or wheezing Allopurinol 300 mg 06/17/25 08:00 06/18/25 08:01 Allopurinol 300 Mg Tablet PO 300 mg DAILY@0800 ALYSSA Administration Ascorbic Acid 125 mg 06/17/25 09:00 06/18/25 08:06 Ascorbic Acid 125 Mg Tablet BY MOUTH 125 mg DAILY ALYSSA Administration Atorvastatin Calcium 10 mg 06/17/25 09:00 06/18/25 08:06 Atorvastatin 10 Mg Tablet PO 10 mg DAILY ALYSSA Administration Benzonatate 100 mg 06/16/25 22:11 Benzonatate 100 Mg Capsule PO TID PRN cough Dextrose 12.5 gm 06/16/25 22:14 Dextrose 50% 25 Gm/50 Ml Syringe IV PUSH PRN PRN Hypoglycemia Protocol Furosemide 40 mg 06/16/25 21:00 06/18/25 08:01 Furosemide Inj 40 Mg/4 Ml Vial IV PUSH 40 mg Q12HR ALYSSA Administration Glucagon 1 mg 06/16/25 22:14 Glucagon For Inj 1 Mg Vial IM PRN PRN Hypoglycemia Protocol Glucose 15 gm 06/16/25 22:14 Glucose Oral Gel 15 Gm Of Glucse In 37.5 Gm Tube PO PRN PRN Hypoglycemia Protocol Heparin Sodium (Porcine) 7,500 units 06/17/25 21:00 Heparin Sodium 5,000 Units/Ml Vial IV PUSH PRN PRN aPTT less than 55 seconds Heparin Sodium (Porcine) 4,000 units 06/17/25 21:00 06/18/25 03:38 Heparin Sodium 5,000 Units/Ml Vial IV PUSH 4,000 units PRN PRN Administration aPTT 55 - 70 seconds Dextrose 1,000 mls @ 100 mls/hr 06/16/25 22:14 Dextrose 5% 1,000 Ml IVPB PRN PRN Hypoglycemia Protocol Heparin Sodium/Dextrose 25,000 units in 250 mls @ 14 mls/hr 06/17/25 21:00 06/18/25 11:42 Heparin Sodium/D5w 100 Units/Ml IV CONT 1,400 units/hr .[id number] ALYSSA 14 mls/hr Protocol Administration 1,400 UNITS/HR Insulin Aspart 4 - 8 units 06/17/25 08:00 06/18/25 11:37 Insulin Aspart (*Bkc) 100 Units/Ml SUB-Q 4 units TIDWM ALYSSA Administration Protocol Insulin Glargine 15 units 06/17/25 09:00 06/18/25 08:00 Insulin Glargine (*Bkc) 100 Units/Ml SUB-Q 15 units QAM ALYSSA Administration Metoprolol Succinate 25 mg 06/17/25 09:00 06/18/25 08:06 Metoprolol Succinate Ext Rel 25 Mg Tabcr PO 25 mg DAILY ALYSSA Administration Miconazole Nitrate 1 applic 06/17/25 09:00 06/18/25 08:00 Miconazole Nitrate 2% Cream 30 Gm Tube TOPICAL Not Given Q12HR ALYSSA Ondansetron HCl 4 mg 06/16/25 16:23 Ondansetron Inj 4 Mg/2 Ml Vial IV PUSH Q4H PRN Nausea Potassium Chloride 10 meq 06/17/25 08:00 06/18/25 08:01 Potassium Chloride 10 Meq Er Tablet PO 10 meq DAILY@0800 ALYSSA Administration Sacubitril/Valsartan 1 tab 06/17/25 21:00 06/18/25 08:06 Sacubitril/Valsartan 24-26 Mg Tablet PO 1 tab Q12HR ALYSSA Administration Radiology Results: ITS Impressions Chest X-Ray 06/16/25 14:25 IMPRESSION: 1. Bilateral airspace opacities and pulmonary vascular congestion with cardiomegaly. Findings may represent CHF versus atypical multifocal pneumonia. Clinical correlation is recommended. Short interval follow-up chest radiograph is recommended after appropriate clinical therapy to document resolution/stability. 2. Small right pleural effusion. Labs Labs: Laboratory Results - last 24 hr 06/17/25 06/17/25 06/18/25 15:32 19:45 03:05 WBC 7.5 RBC 4.74 Hgb 13.9 L Hct 44.3 MCV 93.5 MCH 29.3 MCHC 31.4 L RDW 16.2 H Plt Count 146 L MPV 11.7 H Immature Gran % (Auto) 0.4 Neut % (Auto) 66.2 Lymph % (Auto) 22.7 [place] % (Auto) 7.0 Eos % (Auto) 3.3 Baso % (Auto) 0.4 Lymph # (Auto) 1.70 [place] # (Auto) 0.5 Eos # (Auto) 0.3 Baso # (Auto) 0.0 Abs Immat Gran (auto) 0.03 Absolute Neuts (auto) 5.0 Absolute Nucleated RBC 0.000 Nucleated RBC % 0.0 APTT 55.9 H Sodium 138 Potassium 3.2 L Chloride 100 Carbon Dioxide 29 Anion Gap 9 BUN 16 Creatinine 0.92 Estim Creat Clear Calc 86 Estimated GFR > 60 Glucose 178 H POC Capillary Glucose 221 H 181 H Lactic Acid 1.2 Calcium 8.5 Magnesium 1.7 Total Bilirubin 0.9 AST 22 ALT 17 Alkaline Phosphatase 94 Total Protein 6.4 Albumin 3.7 06/18/25 06/18/25 06/18/25 07:12 10:07 11:03 WBC RBC Hgb Hct MCV MCH MCHC RDW Plt Count MPV Immature Gran % (Auto) Neut % (Auto) Lymph % (Auto) [place] % (Auto) Eos % (Auto) Baso % (Auto) Lymph # (Auto) [place] # (Auto) Eos # (Auto) Baso # (Auto) Abs Immat Gran (auto) Absolute Neuts (auto) Absolute Nucleated RBC Nucleated RBC % APTT 134.4 H Sodium Potassium Chloride Carbon Dioxide Anion Gap BUN Creatinine Estim Creat Clear Calc Estimated GFR Glucose POC Capillary Glucose 206 H 219 H Lactic Acid Calcium Magnesium Total Bilirubin AST ALT Alkaline Phosphatase Total Protein Albumin Quality VTE Prophylaxis VTE prophylaxis: pharmacologic ordered
[2025-06-18 18:55] LABS: Partial Thromboplastin Time 63.4 Seconds (22.3-36.8)
[2025-06-18] MEDS: MICONAZOLE NITRATE 2% CREAM 30 GM TUBE 1 APPLIC TOPICAL (20:36)
[2025-06-19] VITALS (18 sets, daily range): BP systolic 91–139; BP diastolic 49–97; PULSE 83–128; RESP 14–20; TEMP 36.4–36.7; O2SAT 96–100
[2025-06-19 01:13] LABS: Hematocrit 46.4 % (42.0-52.0); Hemoglobin 14.7 g/dL (14.0-18.0); Immature Granulocyte Percent A 0.2 % (0-0.5); Lymphocytes Absolute Auto 1.98 K/mm3 (0.9-3.2); Mean Corpuscular HGB Conc 31.7 g/dl (32-36); Mean Corpuscular Hemoglobin 29.1 pg (26-34); Mean Corpuscular Volume 91.9 fl (80-100); Nucleated Red Blood Cells Absolute Auto 0.000 K/mm3 (0.0-0.012); Nucleated Red Blood Cells Perc 0.0 % (0.0-0.2); Platelet Count Result 166 k/mm3 (150-375); Red Blood Count 5.05 M/mm3 (4.6-6.20); White Blood Count 8.5 K/mm3 (4.5-10.0)
[2025-06-19 01:31] LABS: Partial Thromboplastin Time 119.6 Seconds (22.3-36.8)
[2025-06-19 01:33] LABS: Alanine Aminotransferase 19 U/L (6-50); Albumin Level 3.9 g/dL (3.5-5.1); Alkaline Phosphatase 104 U/L (38-126); Anion Gap 10 mmol/L (4-12); Aspartate Amino Transferase 25 U/L (17-59); Bilirubin,Total 1.1 mg/dL (0.2-1.3); Blood Urea Nitrogen 16 mg/dL (9-20); Calcium 8.9 mg/dL (8.4-10.2); Carbon Dioxide 27 mmol/L (22-30); Chloride 97 mmol/L (98-107); Estimated CRCL calculation 82 ml/min; Estimated Glomerular Filt Rate > 60; Glucose 153 mg/dL (65-110); Magnesium 1.7 mg/dL (1.6-2.3); Potassium 3.0 mmol/L (3.4-5.0); Sodium 134 mmol/L (137-145); Total Protein 7.4 g/dL (6.3-8.2)
[2025-06-19] MEDS: HEPARIN SOD/D5W 100 UNITS/ML 25,000 UNITS/250 ML BAG 14 UNITS IV CONT (04:34)
[2025-06-19 08:02] LABS: Partial Thromboplastin Time 79.4 Seconds (22.3-36.8)
[2025-06-19] MEDS: SACUBITRIL/VALSARTAN 24-26 MG TABLET 1 TAB PO ×2 (08:20→20:43)
[2025-06-19] MEDS: ATORVASTATIN 10 MG TABLET PO (08:20)
[2025-06-19] MEDS: ASCORBIC ACID 125 MG TABLET BY MOUTH (08:20)
[2025-06-19] MEDS: METOPROLOL SUCCINATE EXT REL 25 MG TABCR PO (08:20)
[2025-06-19] MEDS: POTASSIUM CHLORIDE 10 MEQ ER TABLET PO (08:20)
[2025-06-19] MEDS: INSULIN GLARGINE (*BKC) 100 UNITS/ML 15 UNITS SUB-Q (08:21)
[2025-06-19] MEDS: FUROSEMIDE INJ 40 MG/4 ML VIAL IV PUSH ×2 (08:21→17:52)
[2025-06-19] MEDS: MICONAZOLE NITRATE 2% CREAM 30 GM TUBE 1 APPLIC TOPICAL ×2 (08:22→20:43)
--- NOTE | 2025-06-19 10:29 | P.PNCA_ITS ---
<Statement entered by Julio C Yoo MD - 06/20/25 10:44> The service was provided by the the nurse practitioner independently. i was available in case I was needed Progress Note: A&P Assessment and Plan (1) Cardiomyopathy: Code(s): I42.9 - Cardiomyopathy, unspecified Status: Acute Assessment and Plan: New diagnosis severe cardiomyopathy. -continue metoprolol succinate 25 daily -continue Entresto 24/ BID -continue spironolactone 25 mg once daily -eventually add jardiance -coronary angiogram when euvolemic (2) CHF (congestive heart failure): Qualifiers: Heart failure chronicity: acute Heart failure type: systolic Qualified Code(s): I50.21 - Acute systolic (congestive) heart failure Code(s): I50.9 - Heart failure, unspecified Status: Acute Assessment and Plan: Acute exacerbation of systolic heart failure. * Continue IV furosemide 40 mg IV b.i.d, one dose of 5 mg metolazone today * Strict intake and output * Daily weights * CHF counseling (3) Paroxysmal atrial fibrillation: Code(s): I48.0 - Paroxysmal atrial fibrillation Status: Chronic Assessment and Plan: He has paroxysmal atrial fibrillation on anticoagulation with Xarelto and rate controlled. * Continue metoprolol for rate control * Given his severe cardiomyopathy, I think that he would benefit from methodist of sinus rhythm. We will plan for cardioversion when he is euvolemic * Continue heparin for now, DOAC as an outpatient (4) Diabetes mellitus: Qualifiers: Diabetes mellitus complication status: without complication Diabetes mellitus custodial insulin use: without custodial use Diabetes mellitus type: type 2 Qualified Code(s): E11.9 - Type 2 diabetes mellitus without complications Code(s): E11.9 - Type 2 diabetes mellitus without complications Status: Chronic Assessment and Plan: Management per hospitalist. Subjective Date/time seen: 06/19/25 10:29 Interval history: Cardiology follow up visit No acute events overnight Denies chest pain Making urine Date of service 06/19/2025: He feels ok today. Diuresing well, but still has significant edema. No chest pain, palpitations. Review of Systems Review of Systems: All systems reviewed & are unremarkable except as noted in HPI and below Exam Const: General: comfortable, no acute distress, alert and awake Orientation/consciousness: patient oriented x3 HENMT: Head: normal to inspection Eyes: General: appearance normal, both eyes and all related structures Pupils: Equal, round and reactive pupils present Neck: Neck: normal visual inspection and supple Carotids: normal carotid upstroke Other: Unable to assess for JVD given body habitus. Resp: Effort & Inspection: normal respiratory effort Auscultation: not clear to auscultation bilaterally and rales Cardio: Rate: regular rate Rhythm: regular rhythm and abnormal rhythm irregularly irregular Heart sounds: S1 normal heart sound present, S2 normal heart sound present and no murmurs GI: Inspection: distended Auscultation: normal bowel sounds Skin: General skin exam: normal color Neuro: General: patient oriented x3 Cranial nerves: Yes Equal, round and reactive pupils present Extrem: General: abnormal to inspection, edema and pedal edema Other: 2+ bilateral pretibial and pedal edema. Erythema bilateral lower legs Psych: Appearance: grossly normal Mental Status: mental status grossly normal Objective Data Vital Signs Vital Signs: Vital Signs - 24 hr 06/18/25 11:26 06/18/25 12:00 06/18/25 12:00 Temperature 36.6 C Pulse Rate 101 H 101 H 104 H Respiratory Rate 16 16 Blood Pressure 104/56 L Pulse Oximetry 100 100 Oxygen Delivery Room Air Fraction of Inspired Oxygen 06/18/25 14:00 06/18/25 16:00 06/18/25 16:00 Temperature 36.7 C Pulse Rate 106 H 104 H 104 H Respiratory Rate 16 16 Blood Pressure 113/54 L Pulse Oximetry 97 97 Oxygen Delivery Room Air Fraction of Inspired Oxygen 06/18/25 16:00 06/18/25 18:00 06/18/25 20:00 Temperature 36.6 C Pulse Rate 102 H 109 H 107 H Respiratory Rate 16 Blood Pressure 113/94 H Pulse Oximetry 100 Oxygen Delivery Fraction of Inspired Oxygen 06/18/25 20:00 06/18/25 20:00 06/18/25 21:28 Temperature Pulse Rate 98 96 58 L Respiratory Rate 20 20 Blood Pressure Pulse Oximetry 94 94 Oxygen Delivery Room Air Room Air Fraction of Inspired Oxygen 21 06/18/25 22:00 06/18/25 23:55 06/19/25 00:00 Temperature Pulse Rate 101 H 98 91 Respiratory Rate 20 Blood Pressure Pulse Oximetry 94 Oxygen Delivery Room Air Fraction of Inspired Oxygen 06/19/25 00:25 06/19/25 02:00 06/19/25 03:34 Temperature 36.6 C Pulse Rate 125 H 100 109 H Respiratory Rate 20 20 Blood Pressure 116/97 H Pulse Oximetry 97 96 Oxygen Delivery Room Air Fraction of Inspired Oxygen 06/19/25 04:00 06/19/25 04:00 06/19/25 06:00 Temperature 36.6 C Pulse Rate 117 H 105 H 114 H Respiratory Rate 20 Blood Pressure 113/49 L Pulse Oximetry 100 Oxygen Delivery Fraction of Inspired Oxygen 06/19/25 07:35 06/19/25 08:00 06/19/25 08:20 Temperature 36.4 C L Pulse Rate 114 H 83 128 H Respiratory Rate 16 18 Blood Pressure 98/62 L Pulse Oximetry 99 97 Oxygen Delivery Room Air Fraction of Inspired Oxygen 06/19/25 10:00 Temperature Pulse Rate 95 Respiratory Rate Blood Pressure Pulse Oximetry Oxygen Delivery Fraction of Inspired Oxygen Intake/Output Intake/Output: Intake & Output 06/16/25 06/17/25 06/18/25 06/19/25 23:59 23:59 23:59 23:59 Intake Total 1150 1408.2 679.3 Output Total 550 5300 1150 Balance -550 1150 -3891.8 -470.7 Meds/Results Medications: Active Medications Generic Name Dose Route Start Last Admin Trade Name Freq PRN Reason Stop Dose Admin Albuterol 2 puff 06/16/25 22:11 Albuterol Sulfate (*Sp) Aerosol 1 Puff INHALATION Q4H PRN shortness of breath or wheezing Allopurinol 300 mg 06/17/25 08:00 06/19/25 08:20 Allopurinol 300 Mg Tablet PO 300 mg DAILY@0800 ALYSSA Administration Ascorbic Acid 125 mg 06/17/25 09:00 06/19/25 08:20 Ascorbic Acid 125 Mg Tablet BY MOUTH 125 mg DAILY ALYSSA Administration Atorvastatin Calcium 10 mg 06/17/25 09:00 06/19/25 08:20 Atorvastatin 10 Mg Tablet PO 10 mg DAILY ALYSSA Administration Benzonatate 100 mg 06/16/25 22:11 Benzonatate 100 Mg Capsule PO TID PRN cough Dextrose 12.5 gm 06/16/25 22:14 Dextrose 50% 25 Gm/50 Ml Syringe IV PUSH PRN PRN Hypoglycemia Protocol Furosemide 40 mg 06/16/25 21:00 06/19/25 08:21 Furosemide Inj 40 Mg/4 Ml Vial IV PUSH 40 mg Q12HR ALYSSA Administration Glucagon 1 mg 06/16/25 22:14 Glucagon For Inj 1 Mg Vial IM PRN PRN Hypoglycemia Protocol Glucose 15 gm 06/16/25 22:14 Glucose Oral Gel 15 Gm Of Glucse In 37.5 Gm Tube PO PRN PRN Hypoglycemia Protocol Heparin Sodium (Porcine) 7,500 units 06/17/25 21:00 Heparin Sodium 5,000 Units/Ml Vial IV PUSH PRN PRN aPTT less than 55 seconds Heparin Sodium (Porcine) 4,000 units 06/17/25 21:00 06/18/25 18:59 Heparin Sodium 5,000 Units/Ml Vial IV PUSH 4,000 units PRN PRN Administration aPTT 55 - 70 seconds Dextrose 1,000 mls @ 100 mls/hr 06/16/25 22:14 Dextrose 5% 1,000 Ml IVPB PRN PRN Hypoglycemia Protocol Heparin Sodium/Dextrose 25,000 units in 250 mls @ 14 mls/hr 06/17/25 21:00 06/19/25 08:17 Heparin Sodium/D5w 100 Units/Ml IV CONT 1,400 units/hr .[id number] [facility] 14 mls/hr Protocol Titration 1,400 UNITS/HR Insulin Aspart 4 - 8 units 06/17/25 08:00 06/19/25 07:52 Insulin Aspart (*Bkc) 100 Units/Ml SUB-Q Not Given TIDWM [facility] Protocol Insulin Glargine 15 units 06/17/25 09:00 06/19/25 08:21 Insulin Glargine (*Bkc) 100 Units/Ml SUB-Q 15 units QAM [facility] Administration Metoprolol Succinate 25 mg 06/17/25 09:00 06/19/25 08:20 Metoprolol Succinate Ext Rel 25 Mg Tabcr PO 25 mg DAILY [facility] Administration Miconazole Nitrate 1 applic 06/17/25 09:00 06/19/25 08:22 Miconazole Nitrate 2% Cream 30 Gm Tube TOPICAL 1 applic Q12HR [facility] Administration Ondansetron HCl 4 mg 06/16/25 16:23 Ondansetron Inj 4 Mg/2 Ml Vial IV PUSH Q4H PRN Nausea Potassium Chloride 10 meq 06/17/25 08:00 06/19/25 08:20 Potassium Chloride 10 Meq Er Tablet PO 10 meq DAILY@0800 [facility] Administration Potassium Chloride 40 meq 06/19/25 10:29 Potassium Chloride 20 Meq Er Tablet PO 06/19/25 10:30 ONCE ONE Sacubitril/Valsartan 1 tab 06/17/25 21:00 06/19/25 08:20 Sacubitril/Valsartan 24-26 Mg Tablet PO 1 tab Q12HR ALYSSA Administration Radiology Results: ITS Impressions Chest X-Ray 06/16/25 14:25 IMPRESSION: 1. Bilateral airspace opacities and pulmonary vascular congestion with cardiomegaly. Findings may represent CHF versus atypical multifocal pneumonia. Clinical correlation is recommended. Short interval follow-up chest radiograph is recommended after appropriate clinical therapy to document resolution/stability. 2. Small right pleural effusion. Labs Labs: Laboratory Results - last 24 hr 06/18/25 06/18/25 06/18/25 10:07 11:03 16:04 WBC RBC Hgb Hct MCV MCH MCHC RDW Plt Count MPV Immature Gran % (Auto) Neut % (Auto) Lymph % (Auto) [place] % (Auto) Eos % (Auto) Baso % (Auto) Lymph # (Auto) [place] # (Auto) Eos # (Auto) Baso # (Auto) Abs Immat Gran (auto) Absolute Neuts (auto) Absolute Nucleated RBC Nucleated RBC % APTT 134.4 H Sodium Potassium Chloride Carbon Dioxide Anion Gap BUN Creatinine Estim Creat Clear Calc Estimated GFR Glucose POC Capillary Glucose 219 H 191 H Lactic Acid Calcium Magnesium Total Bilirubin AST ALT Alkaline Phosphatase Total Protein Albumin 06/18/25 06/18/25 06/19/25 18:36 19:51 01:03 WBC 8.5 RBC 5.05 Hgb 14.7 Hct 46.4 MCV 91.9 MCH 29.1 MCHC 31.7 L RDW 16.0 H Plt Count 166 MPV 11.5 H Immature Gran % (Auto) 0.2 Neut % (Auto) 64.8 Lymph % (Auto) 23.4 [place] % (Auto) 7.7 Eos % (Auto) 3.4 Baso % (Auto) 0.5 Lymph # (Auto) 1.98 [place] # (Auto) 0.7 H Eos # (Auto) 0.3 Baso # (Auto) 0.0 Abs Immat Gran (auto) 0.02 Absolute Neuts (auto) 5.5 Absolute Nucleated RBC 0.000 Nucleated RBC % 0.0 APTT 63.4 H 119.6 H Sodium 134 L Potassium 3.0 L Chloride 97 L Carbon Dioxide 27 Anion Gap 10 BUN 16 Creatinine 0.95 Estim Creat Clear Calc 82 Estimated GFR > 60 Glucose 153 H POC Capillary Glucose 206 H Lactic Acid 1.5 Calcium 8.9 Magnesium 1.7 Total Bilirubin 1.1 AST 25 ALT 19 Alkaline Phosphatase 104 Total Protein 7.4 Albumin 3.9 06/19/25 06/19/25 07:36 07:38 WBC RBC Hgb Hct MCV MCH MCHC RDW Plt Count MPV Immature Gran % (Auto) Neut % (Auto) Lymph % (Auto) [place] % (Auto) Eos % (Auto) Baso % (Auto) Lymph # (Auto) [place] # (Auto) Eos # (Auto) Baso # (Auto) Abs Immat Gran (auto) Absolute Neuts (auto) Absolute Nucleated RBC Nucleated RBC % APTT 79.4 H Sodium Potassium Chloride Carbon Dioxide Anion Gap BUN Creatinine Estim Creat Clear Calc Estimated GFR Glucose POC Capillary Glucose 187 H Lactic Acid Calcium Magnesium Total Bilirubin AST ALT Alkaline Phosphatase Total Protein Albumin Quality VTE Prophylaxis VTE prophylaxis: pharmacologic ordered
[2025-06-19] MEDS: POTASSIUM CHLORIDE 20 MEQ ER TABLET 40 MEQ PO (11:06)
[2025-06-19] MEDS: INSULIN ASPART (*BKC) 100 UNITS/ML SUB-Q ×2 (11:45→17:07)
[2025-06-19 14:36] LABS: Partial Thromboplastin Time 70.3 Seconds (22.3-36.8)
--- NOTE | 2025-06-19 17:17 | P.PNIM_ITS ---
Progress Note: A&P Assessment and Plan (1) CHF (congestive heart failure): Qualifiers: Heart failure chronicity: acute Heart failure type: systolic Qualified Code(s): I50.21 - Acute systolic (congestive) heart failure Code(s): I50.9 - Heart failure, unspecified Status: Acute Assessment and Plan: - acute exacerbation of CHF - BNP 3890 - most recent echo (06/13/25): systolic function was severely globally reduced, EF of 20-25%, diastolic function abnormal, AFib, and mild valvular disease with no pulmonary hypertension - on Lasix 40 mg BID PO outpatient, will start Lasix 40 mg IV BID - monitor I&Os and daily weights - trend renal function on Metoprolol 25mg Cardiac cath postponed by cardiology pending further diuresis cardiology following (2) Diabetes mellitus: Qualifiers: Diabetes mellitus type: type 2 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 Hold glipizide. - correct regimen ordered - high dose TIDWM, based off BMI - A1C 8.5% on 05/20/2025 (3) Paroxysmal atrial fibrillation: Code(s): I48.0 - Paroxysmal atrial fibrillation Status: Chronic Assessment and Plan: - continue home medications: Metoprolol 25 mg ER and Xarelto. (4) Hypertension: Qualifiers: Hypertension type: essential hypertension Qualified Code(s): I10 - Essential (primary) hypertension Code(s): I10 - Essential (primary) hypertension Status: Chronic Assessment and Plan: - chronic, currently 100/80 - continue home medications: Losartan, Amlodipine - monitor Plan Patient additionally has erythematous rash to bilateral lower extremities that appears consistent with cutaneous candidiasis. Ketoconazole topical ordered. Diet: Heart healthy, NPO midnight GI Prophylaxis: N/a DVT Prophylaxis: Xarelto Code Status: Full code Subjective Date/time seen: 06/19/25 17:17 Interval history: Comfortable at bedside Review of Systems Review of Systems: All systems reviewed & are unremarkable except as noted in HPI and below Exam Const: General: comfortable and no acute distress Other: , male, nontoxic appearance HENMT: Face/Nose/Sinus: Normal nares present Mouth: Yes moist mucous membranes Eyes: General: appearance normal, both eyes and all related structures Sclera: sclerae normal Pupils: Equal, round and reactive pupils present EOM: EOMs intact bilaterally Resp: Effort & Inspection: normal respiratory effort Auscultation: clear to auscultation bilaterally Cardio: Rate: tachycardic Rhythm: abnormal rhythm Other: Normal murmur or rub. GI: Other: Abdomen tight and rounded but nontender. Normoactive bowel sounds in all quadrants. Skin: General skin exam: normal color Wounds: no wounds Other: Erythematous rash to bilateral lower extremities with no open wound is and mild scaling. Neuro: Cranial nerves: Yes Equal, round and reactive pupils present Speech: normal speech Motor exam (neuro): 5/5 motor strength present throughout Sensory Exam: normal sensation Other: A&O x4 Extrem: Other: 2 to 3+ pitting edema to bilateral lower extremity eyes starting at thigh extending to ankles, symmetric. Very tight on exam. Psych: Mental Status: mental status grossly normal Affect: normal affect Other: Good insight and judgment, very pleasant Objective Data Vital Signs Vital Signs: Vital Signs - 24 hr 06/18/25 18:00 06/18/25 20:00 06/18/25 20:00 Temperature 97.8 F Pulse Rate 109 H 107 H 98 Respiratory Rate 16 20 Blood Pressure 113/94 H Pulse Oximetry 100 94 Oxygen Delivery Room Air Fraction of Inspired Oxygen 06/18/25 20:00 06/18/25 21:28 06/18/25 22:00 Temperature Pulse Rate 96 58 L 101 H Respiratory Rate 20 Blood Pressure Pulse Oximetry 94 Oxygen Delivery Room Air Fraction of Inspired Oxygen 21 06/18/25 23:55 06/19/25 00:00 06/19/25 00:25 Temperature 97.8 F Pulse Rate 98 91 125 H Respiratory Rate 20 20 Blood Pressure 116/97 H Pulse Oximetry 94 97 Oxygen Delivery Room Air Fraction of Inspired Oxygen 06/19/25 02:00 06/19/25 03:34 06/19/25 04:00 Temperature 97.8 F Pulse Rate 100 109 H 117 H Respiratory Rate 20 20 Blood Pressure 113/49 L Pulse Oximetry 96 100 Oxygen Delivery Room Air Fraction of Inspired Oxygen 06/19/25 04:00 06/19/25 06:00 06/19/25 07:35 Temperature 97.5 F L Pulse Rate 105 H 114 H 114 H Respiratory Rate 16 Blood Pressure 98/62 L Pulse Oximetry 99 Oxygen Delivery Fraction of Inspired Oxygen 06/19/25 08:00 06/19/25 08:20 06/19/25 10:00 Temperature Pulse Rate 83 128 H 95 Respiratory Rate 18 Blood Pressure Pulse Oximetry 97 Oxygen Delivery Room Air Fraction of Inspired Oxygen 06/19/25 11:30 06/19/25 12:00 06/19/25 12:00 Temperature 97.9 F Pulse Rate 105 H 114 H 112 H Respiratory Rate 16 18 Blood Pressure 139/95 H Pulse Oximetry 99 98 Oxygen Delivery Room Air Fraction of Inspired Oxygen 06/19/25 14:00 06/19/25 16:00 Temperature 98.1 F Pulse Rate 106 H 105 H Respiratory Rate 16 Blood Pressure 91/54 L Pulse Oximetry 98 Oxygen Delivery Fraction of Inspired Oxygen Intake/Output Intake/Output: Intake & Output 06/16/25 06/17/25 06/18/25 06/19/25 23:59 23:59 23:59 23:59 Intake Total 1150 1408.2 2409.2 Output Total 550 5300 3150 Balance -550 1150 -3891.8 -740.8 Meds/Results Medications: Active Medications Generic Name Dose Route Start Last Admin Trade Name Freq PRN Reason Stop Dose Admin Albuterol 2 puff 06/16/25 22:11 Albuterol Sulfate (*Sp) Aerosol 1 Puff INHALATION Q4H PRN shortness of breath or wheezing Allopurinol 300 mg 06/17/25 08:00 06/19/25 08:20 Allopurinol 300 Mg Tablet PO 300 mg DAILY@0800 ALYSSA Administration Ascorbic Acid 125 mg 06/17/25 09:00 06/19/25 08:20 Ascorbic Acid 125 Mg Tablet BY MOUTH 125 mg DAILY ALYSSA Administration Atorvastatin Calcium 10 mg 06/17/25 09:00 06/19/25 08:20 Atorvastatin 10 Mg Tablet PO 10 mg DAILY ALYSSA Administration Benzonatate 100 mg 06/16/25 22:11 Benzonatate 100 Mg Capsule PO TID PRN cough Dextrose 12.5 gm 06/16/25 22:14 Dextrose 50% 25 Gm/50 Ml Syringe IV PUSH PRN PRN Hypoglycemia Protocol Furosemide 40 mg 06/19/25 17:00 Furosemide Inj 40 Mg/4 Ml Vial IV PUSH Q12H ALYSSA Glucagon 1 mg 06/16/25 22:14 Glucagon For Inj 1 Mg Vial IM PRN PRN Hypoglycemia Protocol Glucose 15 gm 06/16/25 22:14 Glucose Oral Gel 15 Gm Of Glucse In 37.5 Gm Tube PO PRN PRN Hypoglycemia Protocol Heparin Sodium (Porcine) 7,500 units 06/17/25 21:00 Heparin Sodium 5,000 Units/Ml Vial IV PUSH PRN PRN aPTT less than 55 seconds Heparin Sodium (Porcine) 4,000 units 06/17/25 21:00 06/19/25 15:31 Heparin Sodium 5,000 Units/Ml Vial IV PUSH 4,000 units PRN PRN Administration aPTT 55 - 70 seconds Dextrose 1,000 mls @ 100 mls/hr 06/16/25 22:14 Dextrose 5% 1,000 Ml IVPB PRN PRN Hypoglycemia Protocol Heparin Sodium/Dextrose 25,000 units in 250 mls @ 16 mls/hr 06/17/25 21:00 06/19/25 15:25 Heparin Sodium/D5w 100 Units/Ml IV CONT 1,600 units/hr .[id number] ALYSSA 16 mls/hr Protocol Titration 1,600 UNITS/HR Insulin Aspart 4 - 8 units 06/17/25 08:00 06/19/25 17:07 Insulin Aspart (*Bkc) 100 Units/Ml SUB-Q 5 units TIDWM ALYSSA Administration Protocol Insulin Glargine 15 units 06/17/25 09:00 06/19/25 08:21 Insulin Glargine (*Bkc) 100 Units/Ml SUB-Q 15 units QAM [facility] Administration Metoprolol Succinate 25 mg 06/17/25 09:00 06/19/25 08:20 Metoprolol Succinate Ext Rel 25 Mg Tabcr PO 25 mg DAILY [facility] Administration Miconazole Nitrate 1 applic 06/17/25 09:00 06/19/25 08:22 Miconazole Nitrate 2% Cream 30 Gm Tube TOPICAL 1 applic Q12HR [facility] Administration Ondansetron HCl 4 mg 06/16/25 16:23 Ondansetron Inj 4 Mg/2 Ml Vial IV PUSH Q4H PRN Nausea Potassium Chloride 10 meq 06/17/25 08:00 06/19/25 08:20 Potassium Chloride 10 Meq Er Tablet PO 10 meq DAILY@0800 [facility] Administration Sacubitril/Valsartan 1 tab 06/17/25 21:00 06/19/25 08:20 Sacubitril/Valsartan 24-26 Mg Tablet PO 1 tab Q12HR ALYSSA Administration Spironolactone 25 mg 06/20/25 09:00 Spironolactone 25 Mg Tablet PO QAM [facility] Radiology Results: ITS Impressions Chest X-Ray 06/16/25 14:25 IMPRESSION: 1. Bilateral airspace opacities and pulmonary vascular congestion with cardiomegaly. Findings may represent CHF versus atypical multifocal pneumonia. Clinical correlation is recommended. Short interval follow-up chest radiograph is recommended after appropriate clinical therapy to document resolution/stability. 2. Small right pleural effusion. Labs Labs: Laboratory Results - last 24 hr 06/18/25 06/18/25 06/19/25 18:36 19:51 01:03 WBC 8.5 RBC 5.05 Hgb 14.7 Hct 46.4 MCV 91.9 MCH 29.1 MCHC 31.7 L RDW 16.0 H Plt Count 166 MPV 11.5 H Immature Gran % (Auto) 0.2 Neut % (Auto) 64.8 Lymph % (Auto) 23.4 [place] % (Auto) 7.7 Eos % (Auto) 3.4 Baso % (Auto) 0.5 Lymph # (Auto) 1.98 [place] # (Auto) 0.7 H Eos # (Auto) 0.3 Baso # (Auto) 0.0 Abs Immat Gran (auto) 0.02 Absolute Neuts (auto) 5.5 Absolute Nucleated RBC 0.000 Nucleated RBC % 0.0 APTT 63.4 H 119.6 H Sodium 134 L Potassium 3.0 L Chloride 97 L Carbon Dioxide 27 Anion Gap 10 BUN 16 Creatinine 0.95 Estim Creat Clear Calc 82 Estimated GFR > 60 Glucose 153 H POC Capillary Glucose 206 H Lactic Acid 1.5 Calcium 8.9 Magnesium 1.7 Total Bilirubin 1.1 AST 25 ALT 19 Alkaline Phosphatase 104 Total Protein 7.4 Albumin 3.9 06/19/25 06/19/25 06/19/25 07:36 07:38 11:17 WBC RBC Hgb Hct MCV MCH MCHC RDW Plt Count MPV Immature Gran % (Auto) Neut % (Auto) Lymph % (Auto) [place] % (Auto) Eos % (Auto) Baso % (Auto) Lymph # (Auto) [place] # (Auto) Eos # (Auto) Baso # (Auto) Abs Immat Gran (auto) Absolute Neuts (auto) Absolute Nucleated RBC Nucleated RBC % APTT 79.4 H Sodium Potassium Chloride Carbon Dioxide Anion Gap BUN Creatinine Estim Creat Clear Calc Estimated GFR Glucose POC Capillary Glucose 187 H 249 H Lactic Acid Calcium Magnesium Total Bilirubin AST ALT Alkaline Phosphatase Total Protein Albumin 06/19/25 06/19/25 14:19 15:54 WBC RBC Hgb Hct MCV MCH MCHC RDW Plt Count MPV Immature Gran % (Auto) Neut % (Auto) Lymph % (Auto) [place] % (Auto) Eos % (Auto) Baso % (Auto) Lymph # (Auto) [place] # (Auto) Eos # (Auto) Baso # (Auto) Abs Immat Gran (auto) Absolute Neuts (auto) Absolute Nucleated RBC Nucleated RBC % APTT 70.3 H Sodium Potassium Chloride Carbon Dioxide Anion Gap BUN Creatinine Estim Creat Clear Calc Estimated GFR Glucose POC Capillary Glucose 300 H Lactic Acid Calcium Magnesium Total Bilirubin AST ALT Alkaline Phosphatase Total Protein Albumin Quality VTE Prophylaxis VTE prophylaxis: pharmacologic ordered
[2025-06-19] MEDS: HEPARIN SOD/D5W 100 UNITS/ML 25,000 UNITS/250 ML BAG 16 UNITS IV CONT (21:41)
[2025-06-19 22:14] LABS: Partial Thromboplastin Time > 200.0 Seconds (22.3-36.8)
[2025-06-20] VITALS (19 sets, daily range): BP systolic 92–130; BP diastolic 48–79; PULSE 93–135; RESP 16–20; TEMP 36.4–36.8; O2SAT 95–100
[2025-06-20] MEDS: FUROSEMIDE INJ 40 MG/4 ML VIAL IV PUSH ×2 (04:07→16:45)
[2025-06-20 05:25] LABS: Hematocrit 46.6 % (42.0-52.0); Hemoglobin 15.1 g/dL (14.0-18.0); Immature Granulocyte Percent A 0.4 % (0-0.5); Lymphocytes Absolute Auto 1.53 K/mm3 (0.9-3.2); Mean Corpuscular HGB Conc 32.4 g/dl (32-36); Mean Corpuscular Hemoglobin 29.5 pg (26-34); Mean Corpuscular Volume 91.2 fl (80-100); Nucleated Red Blood Cells Absolute Auto 0.000 K/mm3 (0.0-0.012); Nucleated Red Blood Cells Perc 0.0 % (0.0-0.2); Platelet Count Result 177 k/mm3 (150-375); Red Blood Count 5.11 M/mm3 (4.6-6.20); White Blood Count 8.4 K/mm3 (4.5-10.0)
[2025-06-20 05:41] LABS: Partial Thromboplastin Time 59.0 Seconds (22.3-36.8)
[2025-06-20 05:49] LABS: Alanine Aminotransferase 17 U/L (6-50); Albumin Level 3.7 g/dL (3.5-5.1); Alkaline Phosphatase 98 U/L (38-126); Anion Gap 9 mmol/L (4-12); Aspartate Amino Transferase 21 U/L (17-59); Bilirubin,Total 1.2 mg/dL (0.2-1.3); Blood Urea Nitrogen 15 mg/dL (9-20); Calcium 9.3 mg/dL (8.4-10.2); Carbon Dioxide 32 mmol/L (22-30); Chloride 92 mmol/L (98-107); Estimated CRCL calculation 80 ml/min; Estimated Glomerular Filt Rate > 60; Glucose 218 mg/dL (65-110); Magnesium 1.6 mg/dL (1.6-2.3); Potassium 3.2 mmol/L (3.4-5.0); Sodium 133 mmol/L (137-145); Total Protein 6.8 g/dL (6.3-8.2)
[2025-06-20] MEDS: SPIRONOLACTONE 25 MG TABLET PO (08:35)
[2025-06-20] MEDS: SACUBITRIL/VALSARTAN 24-26 MG TABLET 1 TAB PO ×2 (08:35→20:03)
[2025-06-20] MEDS: INSULIN ASPART (*BKC) 100 UNITS/ML SUB-Q ×3 (08:35→16:45)
[2025-06-20] MEDS: POTASSIUM CHLORIDE 10 MEQ ER TABLET PO (08:35)
[2025-06-20] MEDS: ASCORBIC ACID 125 MG TABLET BY MOUTH (08:35)
[2025-06-20] MEDS: INSULIN GLARGINE (*BKC) 100 UNITS/ML 15 UNITS SUB-Q (08:35)
[2025-06-20] MEDS: METOPROLOL SUCCINATE EXT REL 25 MG TABCR PO (08:35)
[2025-06-20] MEDS: ATORVASTATIN 10 MG TABLET PO (08:35)
[2025-06-20] MEDS: MICONAZOLE NITRATE 2% CREAM 30 GM TUBE 1 APPLIC TOPICAL ×2 (08:44→20:03)
--- NOTE | 2025-06-20 09:36 | P.PNCA_ITS ---
<Statement entered by Julio C Yoo MD - 06/20/25 10:43> The service was provided by the the nurse practitioner independently. i was available in case I was needed Progress Note: A&P Assessment and Plan (1) Cardiomyopathy: Code(s): I42.9 - Cardiomyopathy, unspecified Status: Acute Assessment and Plan: New diagnosis severe cardiomyopathy. -continue metoprolol succinate 25 daily -continue Entresto 24/ BID -continue spironolactone 25 mg once daily -eventually add jardiance -coronary angiogram when euvolemic (2) CHF (congestive heart failure): Qualifiers: Heart failure chronicity: acute Heart failure type: systolic Qualified Code(s): I50.21 - Acute systolic (congestive) heart failure Code(s): I50.9 - Heart failure, unspecified Status: Acute Assessment and Plan: Acute exacerbation of systolic heart failure. * Continue IV furosemide 40 mg IV b.i.d, one dose of 5 mg metolazone today * Strict intake and output * Daily weights * 1500cc fluid restriction * CHF counseling (3) Paroxysmal atrial fibrillation: Code(s): I48.0 - Paroxysmal atrial fibrillation Status: Chronic Assessment and Plan: He has paroxysmal atrial fibrillation on anticoagulation with Xarelto and rate controlled. * Continue metoprolol for rate control * Given his severe cardiomyopathy, I think that he would benefit from mandaen of sinus rhythm. We will plan for cardioversion when he is euvolemic * Continue heparin for now, DOAC as an outpatient (4) Diabetes mellitus: Qualifiers: Diabetes mellitus type: type 2 Diabetes mellitus shelter insulin use: without shelter use Diabetes mellitus complication status: without complication Qualified Code(s): E11.9 - Type 2 diabetes mellitus without complications Code(s): E11.9 - Type 2 diabetes mellitus without complications Status: Chronic Assessment and Plan: Management per hospitalist. Subjective Date/time seen: 06/20/25 09:36 Interval history: Cardiology follow up visit No acute events overnight Denies chest pain Making urine Date of service 06/19/2025: He feels ok today. Diuresing well, but still has significant edema. No chest pain, palpitations. Date of service 06/20/2025: No acute events overnight. Feeling ok. Still has orthopnea, unable to sleep in bed. Edema slowly improving. No palpitations. Review of Systems Review of Systems: All systems reviewed & are unremarkable except as noted in HPI and below Exam Const: General: comfortable, no acute distress, alert and awake Orientation/consciousness: patient oriented x3 HENMT: Head: normal to inspection Eyes: General: appearance normal, both eyes and all related structures Pupils: Equal, round and reactive pupils present Neck: Neck: normal visual inspection and supple Carotids: normal carotid upstroke Other: Unable to assess for JVD given body habitus. Resp: Effort & Inspection: normal respiratory effort Auscultation: not clear to auscultation bilaterally and rales bilateral 1/[address] up Cardio: Rate: regular rate Rhythm: regular rhythm and abnormal rhythm irregularly irregular Heart sounds: S1 normal heart sound present, S2 normal heart sound present and no murmurs GI: Inspection: distended Auscultation: normal bowel sounds Skin: General skin exam: normal color Neuro: General: patient oriented x3 Cranial nerves: Yes Equal, round and reactive pupils present Extrem: General: abnormal to inspection, edema and pedal edema Other: 2+ bilateral pretibial and pedal edema. Erythema bilateral lower legs Psych: Appearance: grossly normal Mental Status: mental status grossly normal Objective Data Vital Signs Vital Signs: Vital Signs - 24 hr 06/19/25 10:00 06/19/25 11:30 06/19/25 12:00 Temperature 36.6 C Pulse Rate 95 105 H 114 H Respiratory Rate 16 18 Blood Pressure 139/95 H Pulse Oximetry 99 98 Oxygen Delivery Room Air 06/19/25 12:00 06/19/25 14:00 06/19/25 16:00 Temperature 36.7 C Pulse Rate 112 H 106 H 105 H Respiratory Rate 16 Blood Pressure 91/54 L Pulse Oximetry 98 Oxygen Delivery 06/19/25 16:00 06/19/25 16:00 06/19/25 18:00 Temperature Pulse Rate 105 H 101 H 114 H Respiratory Rate 14 Blood Pressure Pulse Oximetry 98 Oxygen Delivery Room Air 06/19/25 20:00 06/19/25 20:00 06/19/25 20:00 Temperature 36.4 C Pulse Rate 102 H 106 H 106 H Respiratory Rate 18 16 Blood Pressure 92/70 L Pulse Oximetry 100 98 Oxygen Delivery Room Air 06/19/25 22:00 06/19/25 23:14 06/20/25 00:00 Temperature 36.5 C Pulse Rate 115 H 103 H 117 H Respiratory Rate 18 18 Blood Pressure 120/74 Pulse Oximetry 98 95 Oxygen Delivery Room Air 06/20/25 00:00 06/20/25 01:58 06/20/25 03:40 Temperature Pulse Rate 110 H 101 H 114 H Respiratory Rate 20 Blood Pressure Pulse Oximetry 98 Oxygen Delivery Room Air 06/20/25 03:58 06/20/25 04:00 06/20/25 06:00 Temperature 36.4 C Pulse Rate 135 H 122 H 110 H Respiratory Rate 18 Blood Pressure 100/54 L Pulse Oximetry 98 Oxygen Delivery 06/20/25 07:19 Temperature 36.8 C Pulse Rate 127 H Respiratory Rate 16 Blood Pressure 102/48 L Pulse Oximetry 100 Oxygen Delivery Intake/Output Intake/Output: Intake & Output 06/17/25 06/18/25 06/19/25 06/20/25 23:59 23:59 23:59 23:59 Intake Total 1150 1408.2 2756.4 576.9 Output Total 5300 3150 2850 Balance 1150 -3891.8 -393.6 -2273.1 Meds/Results Medications: Active Medications Generic Name Dose Route Start Last Admin Trade Name Freq PRN Reason Stop Dose Admin Albuterol 2 puff 06/16/25 22:11 Albuterol Sulfate (*Sp) Aerosol 1 Puff INHALATION Q4H PRN shortness of breath or wheezing Allopurinol 300 mg 06/17/25 08:00 06/20/25 08:35 Allopurinol 300 Mg Tablet PO 300 mg DAILY@0800 ALYSSA Administration Ascorbic Acid 125 mg 06/17/25 09:00 06/20/25 08:35 Ascorbic Acid 125 Mg Tablet BY MOUTH 125 mg DAILY ALYSSA Administration Atorvastatin Calcium 10 mg 06/17/25 09:00 06/20/25 08:35 Atorvastatin 10 Mg Tablet PO 10 mg DAILY ALYSSA Administration Benzonatate 100 mg 06/16/25 22:11 Benzonatate 100 Mg Capsule PO TID PRN cough Dextrose 12.5 gm 06/16/25 22:14 Dextrose 50% 25 Gm/50 Ml Syringe IV PUSH PRN PRN Hypoglycemia Protocol Furosemide 40 mg 06/19/25 17:00 06/20/25 04:07 Furosemide Inj 40 Mg/4 Ml Vial IV PUSH 40 mg Q12H ALYSSA Administration Glucagon 1 mg 06/16/25 22:14 Glucagon For Inj 1 Mg Vial IM PRN PRN Hypoglycemia Protocol Glucose 15 gm 06/16/25 22:14 Glucose Oral Gel 15 Gm Of Glucse In 37.5 Gm Tube PO PRN PRN Hypoglycemia Protocol Heparin Sodium (Porcine) 7,500 units 06/17/25 21:00 Heparin Sodium 5,000 Units/Ml Vial IV PUSH PRN PRN aPTT less than 55 seconds Heparin Sodium (Porcine) 4,000 units 06/17/25 21:00 06/20/25 05:57 Heparin Sodium 5,000 Units/Ml Vial IV PUSH 4,000 units PRN PRN Administration aPTT 55 - 70 seconds Dextrose 1,000 mls @ 100 mls/hr 06/16/25 22:14 Dextrose 5% 1,000 Ml IVPB PRN PRN Hypoglycemia Protocol Heparin Sodium/Dextrose 25,000 units in 250 mls @ 15 mls/hr 06/17/25 21:00 06/20/25 05:56 Heparin Sodium/D5w 100 Units/Ml IV CONT 1,500 units/hr .[id number] ALYSSA 15 mls/hr Protocol Titration 1,500 UNITS/HR Insulin Aspart 4 - 8 units 06/17/25 08:00 06/20/25 08:35 Insulin Aspart (*Bkc) 100 Units/Ml SUB-Q 5 units TIDWM ALYSSA Administration Protocol Insulin Glargine 15 units 06/17/25 09:00 06/20/25 08:35 Insulin Glargine (*Bkc) 100 Units/Ml SUB-Q 15 units QAM ALYSSA Administration Metoprolol Succinate 25 mg 06/17/25 09:00 06/20/25 08:35 Metoprolol Succinate Ext Rel 25 Mg Tabcr PO 25 mg DAILY ALYSSA Administration Miconazole Nitrate 1 applic 06/17/25 09:00 06/20/25 08:44 Miconazole Nitrate 2% Cream 30 Gm Tube TOPICAL 1 applic Q12HR ALYSSA Administration Ondansetron HCl 4 mg 06/16/25 16:23 Ondansetron Inj 4 Mg/2 Ml Vial IV PUSH Q4H PRN Nausea Potassium Chloride 10 meq 06/17/25 08:00 06/20/25 08:35 Potassium Chloride 10 Meq Er Tablet PO 10 meq DAILY@0800 ALYSSA Administration Sacubitril/Valsartan 1 tab 06/17/25 21:00 06/20/25 08:35 Sacubitril/Valsartan 24-26 Mg Tablet PO 1 tab Q12HR ALYSSA Administration Spironolactone 25 mg 06/20/25 09:00 06/20/25 08:35 Spironolactone 25 Mg Tablet PO 25 mg QAM ALYSSA Administration Radiology Results: ITS Impressions Chest X-Ray 06/16/25 14:25 IMPRESSION: 1. Bilateral airspace opacities and pulmonary vascular congestion with cardiomegaly. Findings may represent CHF versus atypical multifocal pneumonia. Clinical correlation is recommended. Short interval follow-up chest radiograph is recommended after appropriate clinical therapy to document resolution/stability. 2. Small right pleural effusion. Labs Labs: Laboratory Results - last 24 hr 06/19/25 06/19/25 06/19/25 11:17 14:19 15:54 WBC RBC Hgb Hct MCV MCH MCHC RDW Plt Count MPV Immature Gran % (Auto) Neut % (Auto) Lymph % (Auto) [place] % (Auto) Eos % (Auto) Baso % (Auto) Lymph # (Auto) [place] # (Auto) Eos # (Auto) Baso # (Auto) Abs Immat Gran (auto) Absolute Neuts (auto) Absolute Nucleated RBC Nucleated RBC % APTT 70.3 H Sodium Potassium Chloride Carbon Dioxide Anion Gap BUN Creatinine Estim Creat Clear Calc Estimated GFR Glucose POC Capillary Glucose 249 H 300 H Calcium Magnesium Total Bilirubin AST ALT Alkaline Phosphatase Total Protein Albumin 06/19/25 06/19/25 06/20/25 19:41 21:16 05:19 WBC 8.4 RBC 5.11 Hgb 15.1 Hct 46.6 MCV 91.2 MCH 29.5 MCHC 32.4 RDW 15.7 H Plt Count 177 MPV 11.5 H Immature Gran % (Auto) 0.4 Neut % (Auto) 70.6 Lymph % (Auto) 18.2 L [place] % (Auto) 6.9 Eos % (Auto) 3.3 Baso % (Auto) 0.6 Lymph # (Auto) 1.53 [place] # (Auto) 0.6 Eos # (Auto) 0.3 Baso # (Auto) 0.1 Abs Immat Gran (auto) 0.03 Absolute Neuts (auto) 5.9 Absolute Nucleated RBC 0.000 Nucleated RBC % 0.0 APTT > 200.0 H* 59.0 H Sodium 133 L Potassium 3.2 L Chloride 92 L Carbon Dioxide 32 H Anion Gap 9 BUN 15 Creatinine 0.98 Estim Creat Clear Calc 80 Estimated GFR > 60 Glucose 218 H POC Capillary Glucose 274 H Calcium 9.3 Magnesium 1.6 Total Bilirubin 1.2 AST 21 ALT 17 Alkaline Phosphatase 98 Total Protein 6.8 Albumin 3.7 06/20/25 07:23 WBC RBC Hgb Hct MCV MCH MCHC RDW Plt Count MPV Immature Gran % (Auto) Neut % (Auto) Lymph % (Auto) [place] % (Auto) Eos % (Auto) Baso % (Auto) Lymph # (Auto) [place] # (Auto) Eos # (Auto) Baso # (Auto) Abs Immat Gran (auto) Absolute Neuts (auto) Absolute Nucleated RBC Nucleated RBC % APTT Sodium Potassium Chloride Carbon Dioxide Anion Gap BUN Creatinine Estim Creat Clear Calc Estimated GFR Glucose POC Capillary Glucose 288 H Calcium Magnesium Total Bilirubin AST ALT Alkaline Phosphatase Total Protein Albumin Quality VTE Prophylaxis VTE prophylaxis: pharmacologic ordered
[2025-06-20] MEDS: POTASSIUM CHLORIDE 20 MEQ ER TABLET 40 MEQ PO (11:12)
[2025-06-20 12:20] LABS: Partial Thromboplastin Time 68.4 Seconds (22.3-36.8)
--- NOTE | 2025-06-20 15:14 | PM.IMPN ---
Progress Note: A&P Assessment and Plan (1) CHF (congestive heart failure): Qualifiers: Heart failure chronicity: acute Heart failure type: systolic Qualified Code(s): I50.21 - Acute systolic (congestive) heart failure Code(s): I50.9 - Heart failure, unspecified Status: Acute Assessment and Plan: - acute exacerbation of CHF - BNP 3890 - most recent echo (06/13/25): systolic function was severely globally reduced, EF of 20-25%, diastolic function abnormal, AFib, and mild valvular disease with no pulmonary hypertension - on Lasix 40 mg BID PO outpatient, will start Lasix 40 mg IV BID - monitor I&Os and daily weights - trend renal function on Metoprolol 25mg Cardiac cath postponed by cardiology pending further diuresis cardiology following (2) Diabetes mellitus: Qualifiers: Diabetes mellitus type: type 2 Diabetes mellitus terminal supervisor insulin use: without jail use Diabetes mellitus complication status: without complication Qualified Code(s): E11.9 - Type 2 diabetes mellitus without complications Code(s): E11.9 - Type 2 diabetes mellitus without complications Status: Chronic Assessment and Plan: - hypoglycemia protocol - POC blood glucose ACHS - home medication: Continue Lantus 15 units QAM. Hold glipizide. - correct regimen ordered - high dose TIDWM, based off BMI - A1C 8.5% on 05/20/2025 (3) Paroxysmal atrial fibrillation: Code(s): I48.0 - Paroxysmal atrial fibrillation Status: Chronic Assessment and Plan: - continue home medications: Metoprolol 25 mg ER and Xarelto. (4) Hypertension: Qualifiers: Hypertension type: essential hypertension Qualified Code(s): I10 - Essential (primary) hypertension Code(s): I10 - Essential (primary) hypertension Status: Chronic Assessment and Plan: - chronic, currently 100/80 - continue home medications: Losartan, Amlodipine - monitor Plan Patient additionally has erythematous rash to bilateral lower extremities that appears consistent with cutaneous candidiasis. Ketoconazole topical ordered. Diet: Heart healthy DVT Prophylaxis: Xarelto Code Status: Full code Subjective Date/time seen: 06/20/25 15:14 Interval history: Comfortable at bedside Review of Systems Review of Systems: All systems reviewed & are unremarkable except as noted in HPI and below Exam Const: General: comfortable and no acute distress Other: , male, nontoxic appearance HENMT: Face/Nose/Sinus: Normal nares present Mouth: Yes moist mucous membranes Eyes: General: appearance normal, both eyes and all related structures Sclera: sclerae normal Pupils: Equal, round and reactive pupils present EOM: EOMs intact bilaterally Resp: Effort & Inspection: normal respiratory effort Auscultation: clear to auscultation bilaterally Cardio: Rate: tachycardic Rhythm: abnormal rhythm Other: Normal murmur or rub. GI: Other: Abdomen tight and rounded but nontender. Normoactive bowel sounds in all quadrants. Skin: General skin exam: normal color Wounds: no wounds Other: Erythematous rash to bilateral lower extremities with no open wound is and mild scaling. Neuro: Cranial nerves: Yes Equal, round and reactive pupils present Speech: normal speech Motor exam (neuro): 5/5 motor strength present throughout Sensory Exam: normal sensation Other: A&O x4 Extrem: Other: 2 to 3+ pitting edema to bilateral lower extremity eyes starting at thigh extending to ankles, symmetric. Very tight on exam. Psych: Mental Status: mental status grossly normal Affect: normal affect Other: Good insight and judgment, very pleasant Objective Data Vital Signs Vital Signs: Vital Signs - 24 hr 06/19/25 16:00 06/19/25 16:00 06/19/25 16:00 Temperature 98.1 F Pulse Rate 105 H 105 H 101 H Respiratory Rate 16 14 Blood Pressure 91/54 L Pulse Oximetry 98 98 Oxygen Delivery Room Air 06/19/25 18:00 06/19/25 20:00 06/19/25 20:00 Temperature 97.6 F Pulse Rate 114 H 102 H 106 H Respiratory Rate 18 16 Blood Pressure 92/70 L Pulse Oximetry 100 98 Oxygen Delivery Room Air 06/19/25 20:00 06/19/25 22:00 06/19/25 23:14 Temperature Pulse Rate 106 H 115 H 103 H Respiratory Rate 18 Blood Pressure Pulse Oximetry 98 Oxygen Delivery Room Air 06/20/25 00:00 06/20/25 00:00 06/20/25 01:58 Temperature 97.7 F Pulse Rate 117 H 110 H 101 H Respiratory Rate 18 Blood Pressure 120/74 Pulse Oximetry 95 Oxygen Delivery 06/20/25 03:40 06/20/25 03:58 06/20/25 04:00 Temperature 97.6 F Pulse Rate 114 H 135 H 122 H Respiratory Rate 20 18 Blood Pressure 100/54 L Pulse Oximetry 98 98 Oxygen Delivery Room Air 06/20/25 06:00 06/20/25 07:19 06/20/25 08:00 Temperature 98.2 F Pulse Rate 110 H 127 H Respiratory Rate 16 Blood Pressure 102/48 L Pulse Oximetry 100 Oxygen Delivery Room Air 06/20/25 08:00 06/20/25 10:00 06/20/25 11:32 Temperature 98.1 F Pulse Rate 114 H 111 H 103 H Respiratory Rate 16 Blood Pressure 97/51 L Pulse Oximetry 100 Oxygen Delivery 06/20/25 12:00 06/20/25 12:00 06/20/25 14:00 Temperature Pulse Rate 104 H 98 Respiratory Rate Blood Pressure Pulse Oximetry Oxygen Delivery Room Air Intake/Output Intake/Output: Intake & Output 06/17/25 06/18/25 06/19/25 06/20/25 23:59 23:59 23:59 23:59 Intake Total 1150 1408.2 2756.4 923.1 Output Total 5300 3150 2850 Balance 1150 -3891.8 -393.6 -1926.9 Meds/Results Medications: Active Medications Generic Name Dose Route Start Last Admin Trade Name Freq PRN Reason Stop Dose Admin Albuterol 2 puff 06/16/25 22:11 Albuterol Sulfate (*Sp) Aerosol 1 Puff INHALATION Q4H PRN shortness of breath or wheezing Allopurinol 300 mg 06/17/25 08:00 06/20/25 08:35 Allopurinol 300 Mg Tablet PO 300 mg DAILY@0800 ALYSSA Administration Ascorbic Acid 125 mg 06/17/25 09:00 06/20/25 08:35 Ascorbic Acid 125 Mg Tablet BY MOUTH 125 mg DAILY ALYSSA Administration Atorvastatin Calcium 10 mg 06/17/25 09:00 06/20/25 08:35 Atorvastatin 10 Mg Tablet PO 10 mg DAILY ALYSSA Administration Benzonatate 100 mg 06/16/25 22:11 Benzonatate 100 Mg Capsule PO TID PRN cough Dextrose 12.5 gm 06/16/25 22:14 Dextrose 50% 25 Gm/50 Ml Syringe IV PUSH PRN PRN Hypoglycemia Protocol Furosemide 40 mg 06/19/25 17:00 06/20/25 04:07 Furosemide Inj 40 Mg/4 Ml Vial IV PUSH 40 mg Q12H ALYSSA Administration Glucagon 1 mg 06/16/25 22:14 Glucagon For Inj 1 Mg Vial IM PRN PRN Hypoglycemia Protocol Glucose 15 gm 06/16/25 22:14 Glucose Oral Gel 15 Gm Of Glucse In 37.5 Gm Tube PO PRN PRN Hypoglycemia Protocol Heparin Sodium (Porcine) 7,500 units 06/17/25 21:00 Heparin Sodium 5,000 Units/Ml Vial IV PUSH PRN PRN aPTT less than 55 seconds Heparin Sodium (Porcine) 4,000 units 06/17/25 21:00 06/20/25 13:00 Heparin Sodium 5,000 Units/Ml Vial IV PUSH 4,000 units PRN PRN Administration aPTT 55 - 70 seconds Dextrose 1,000 mls @ 100 mls/hr 06/16/25 22:14 Dextrose 5% 1,000 Ml IVPB PRN PRN Hypoglycemia Protocol Heparin Sodium/Dextrose 25,000 units in 250 mls @ 17 mls/hr 06/17/25 21:00 06/20/25 13:01 Heparin Sodium/D5w 100 Units/Ml IV CONT 1,700 units/hr .[id number] ALYSSA 17 mls/hr Protocol Titration 1,700 UNITS/HR Insulin Aspart 4 - 8 units 06/17/25 08:00 06/20/25 11:56 Insulin Aspart (*Bkc) 100 Units/Ml SUB-Q 5 units TIDWM ALYSSA Administration Protocol Insulin Glargine 15 units 06/17/25 09:00 06/20/25 08:35 Insulin Glargine (*Bkc) 100 Units/Ml SUB-Q 15 units QAM ALYSSA Administration Metolazone 5 mg 06/20/25 16:00 Metolazone 5 Mg Tablet PO 06/20/25 16:01 ONCE ONE Metoprolol Succinate 25 mg 06/17/25 09:00 06/20/25 08:35 Metoprolol Succinate Ext Rel 25 Mg Tabcr PO 25 mg DAILY ALYSSA Administration Miconazole Nitrate 1 applic 06/17/25 09:00 06/20/25 08:44 Miconazole Nitrate 2% Cream 30 Gm Tube TOPICAL 1 applic Q12HR ALYSSA Administration Ondansetron HCl 4 mg 06/16/25 16:23 Ondansetron Inj 4 Mg/2 Ml Vial IV PUSH Q4H PRN Nausea Potassium Chloride 10 meq 06/17/25 08:00 06/20/25 08:35 Potassium Chloride 10 Meq Er Tablet PO 10 meq DAILY@0800 ALYSSA Administration Potassium Chloride 40 meq 06/20/25 09:45 06/20/25 11:12 Potassium Chloride 20 Meq Er Tablet PO 40 meq DAILY ALYSSA Administration Sacubitril/Valsartan 1 tab 06/17/25 21:00 06/20/25 08:35 Sacubitril/Valsartan 24-26 Mg Tablet PO 1 tab Q12HR ALYSSA Administration Spironolactone 25 mg 06/20/25 09:00 06/20/25 08:35 Spironolactone 25 Mg Tablet PO 25 mg QAM ALYSSA Administration Radiology Results: ITS Impressions Chest X-Ray 06/16/25 14:25 IMPRESSION: 1. Bilateral airspace opacities and pulmonary vascular congestion with cardiomegaly. Findings may represent CHF versus atypical multifocal pneumonia. Clinical correlation is recommended. Short interval follow-up chest radiograph is recommended after appropriate clinical therapy to document resolution/stability. 2. Small right pleural effusion. Labs Labs: Laboratory Results - last 24 hr 06/19/25 06/19/25 06/19/25 15:54 19:41 21:16 WBC RBC Hgb Hct MCV MCH MCHC RDW Plt Count MPV Immature Gran % (Auto) Neut % (Auto) Lymph % (Auto) Cavalier % (Auto) Eos % (Auto) Baso % (Auto) Lymph # (Auto) Cavalier # (Auto) Eos # (Auto) Baso # (Auto) Abs Immat Gran (auto) Absolute Neuts (auto) Absolute Nucleated RBC Nucleated RBC % APTT > 200.0 H* Sodium Potassium Chloride Carbon Dioxide Anion Gap BUN Creatinine Estim Creat Clear Calc Estimated GFR Glucose POC Capillary Glucose 300 H 274 H Calcium Magnesium Total Bilirubin AST ALT Alkaline Phosphatase Total Protein Albumin 06/20/25 06/20/25 06/20/25 05:19 07:23 11:24 WBC 8.4 RBC 5.11 Hgb 15.1 Hct 46.6 MCV 91.2 MCH 29.5 MCHC 32.4 RDW 15.7 H Plt Count 177 MPV 11.5 H Immature Gran % (Auto) 0.4 Neut % (Auto) 70.6 Lymph % (Auto) 18.2 L Cavalier % (Auto) 6.9 Eos % (Auto) 3.3 Baso % (Auto) 0.6 Lymph # (Auto) 1.53 Cavalier # (Auto) 0.6 Eos # (Auto) 0.3 Baso # (Auto) 0.1 Abs Immat Gran (auto) 0.03 Absolute Neuts (auto) 5.9 Absolute Nucleated RBC 0.000 Nucleated RBC % 0.0 APTT 59.0 H Sodium 133 L Potassium 3.2 L Chloride 92 L Carbon Dioxide 32 H Anion Gap 9 BUN 15 Creatinine 0.98 Estim Creat Clear Calc 80 Estimated GFR > 60 Glucose 218 H POC Capillary Glucose 288 H 263 H Calcium 9.3 Magnesium 1.6 Total Bilirubin 1.2 AST 21 ALT 17 Alkaline Phosphatase 98 Total Protein 6.8 Albumin 3.7 06/20/25 11:55 WBC RBC Hgb Hct MCV MCH MCHC RDW Plt Count MPV Immature Gran % (Auto) Neut % (Auto) Lymph % (Auto) Cavalier % (Auto) Eos % (Auto) Baso % (Auto) Lymph # (Auto) Cavalier # (Auto) Eos # (Auto) Baso # (Auto) Abs Immat Gran (auto) Absolute Neuts (auto) Absolute Nucleated RBC Nucleated RBC % APTT 68.4 H Sodium Potassium Chloride Carbon Dioxide Anion Gap BUN Creatinine Estim Creat Clear Calc Estimated GFR Glucose POC Capillary Glucose Calcium Magnesium Total Bilirubin AST ALT Alkaline Phosphatase Total Protein Albumin Quality VTE Prophylaxis VTE prophylaxis: pharmacologic ordered
[2025-06-20] MEDS: HEPARIN SOD/D5W 100 UNITS/ML 25,000 UNITS/250 ML BAG 17 UNITS IV CONT (15:44)
[2025-06-20] MEDS: MIDODRINE HCL 2.5 MG TABLET 5 MG PO (16:45)
[2025-06-20 19:30] LABS: Partial Thromboplastin Time 116.0 Seconds (22.3-36.8)
[2025-06-21] VITALS (20 sets, daily range): BP systolic 97–128; BP diastolic 40–68; PULSE 97–130; RESP 15–20; TEMP 36.6–36.9; O2SAT 95–99
[2025-06-21 02:53] LABS: Partial Thromboplastin Time 73.9 Seconds (22.3-36.8)
[2025-06-21] MEDS: HEPARIN SOD/D5W 100 UNITS/ML 25,000 UNITS/250 ML BAG 15 UNITS IV CONT ×2 (05:34→21:50)
[2025-06-21] MEDS: FUROSEMIDE INJ 40 MG/4 ML VIAL IV PUSH ×3 (05:34→16:57)
[2025-06-21 07:55] LABS: Hematocrit 45.4 % (42.0-52.0); Hemoglobin 15.1 g/dL (14.0-18.0); Mean Corpuscular HGB Conc 33.3 g/dl (32-36); Mean Corpuscular Hemoglobin 30.3 pg (26-34); Mean Corpuscular Volume 91.0 fl (80-100); Platelet Count Result 186 k/mm3 (150-375); Red Blood Count 4.99 M/mm3 (4.6-6.20); White Blood Count 8.0 K/mm3 (4.5-10.0)
[2025-06-21] MEDS: INSULIN ASPART (*BKC) 100 UNITS/ML SUB-Q ×3 (07:56→16:46)
[2025-06-21 08:09] LABS: Partial Thromboplastin Time 73.7 Seconds (22.3-36.8)
[2025-06-21 08:20] LABS: Alanine Aminotransferase 19 U/L (6-50); Albumin Level 3.8 g/dL (3.5-5.1); Alkaline Phosphatase 112 U/L (38-126); Anion Gap 10 mmol/L (4-12); Aspartate Amino Transferase 20 U/L (17-59); Bilirubin,Total 1.0 mg/dL (0.2-1.3); Blood Urea Nitrogen 16 mg/dL (9-20); Calcium 9.4 mg/dL (8.4-10.2); Carbon Dioxide 30 mmol/L (22-30); Chloride 94 mmol/L (98-107); Estimated CRCL calculation 81 ml/min; Estimated Glomerular Filt Rate > 60; Glucose 294 mg/dL (65-110); Potassium 3.4 mmol/L (3.4-5.0); Sodium 134 mmol/L (137-145); Total Protein 6.8 g/dL (6.3-8.2)
--- NOTE | 2025-06-21 08:30 | P.PNCA_ITS ---
Progress Note: A&P Assessment and Plan (1) Cardiomyopathy: Code(s): I42.9 - Cardiomyopathy, unspecified Status: Acute Assessment and Plan: New diagnosis severe cardiomyopathy. -continue metoprolol succinate 25 daily -discontinue Entresto, spironolactone given soft blood pressure. -increase Lasix to 40 mg t.i.d. from b.i.d.. (2) CHF (congestive heart failure): Qualifiers: Heart failure chronicity: acute Heart failure type: systolic Qualified Code(s): I50.21 - Acute systolic (congestive) heart failure Code(s): I50.9 - Heart failure, unspecified Status: Acute (3) Paroxysmal atrial fibrillation: Code(s): I48.0 - Paroxysmal atrial fibrillation Status: Chronic Assessment and Plan: -heart rate is elevated this morning. Continue Toprol-XL 25 mg daily. Add 2 dosages of digoxin 250 mcg q.6 hours. -continue IV heparin for now and transition to new anticoagulant. -will need to be tested for sleep apnea and treated for sleep apnea. I am pretty sure he has a very bad sleep apnea. This can be done as an outpatient. -check TSH (4) Diabetes mellitus: Qualifiers: Diabetes mellitus type: type 2 Diabetes mellitus terminal operations manager insulin use: without terminal operations manager use Diabetes mellitus complication status: without complication Qualified Code(s): E11.9 - Type 2 diabetes mellitus without complications Code(s): E11.9 - Type 2 diabetes mellitus without complications Status: Chronic Assessment and Plan: Management per hospitalist. Subjective Date/time seen: 06/21/25 08:30 Interval history: Cardiology follow up visit No acute events overnight Denies chest pain Making urine Date of service 06/19/2025: He feels ok today. Diuresing well, but still has significant edema. No chest pain, palpitations. Date of service 06/20/2025: No acute events overnight. Feeling ok. Still has orthopnea, unable to sleep in bed. Edema slowly improving. No palpitations. Date of service 06/21/2025-sitting on chair. He is very edematous. AFib with RVR. Blood pressure is soft. Review of Systems Review of Systems: All systems reviewed & are unremarkable except as noted in HPI and below Exam Const: General: comfortable, no acute distress, alert and awake Orientation/consciousness: patient oriented x3 HENMT: Head: normal to inspection Eyes: General: appearance normal, both eyes and all related structures Pupils: Equal, round and reactive pupils present Neck: Neck: normal visual inspection and supple Carotids: normal carotid upstroke Other: Unable to assess for JVD given body habitus. Resp: Effort & Inspection: normal respiratory effort Auscultation: not clear to auscultation bilaterally and rales bilateral 1/[address] up Cardio: Rate: regular rate Rhythm: regular rhythm and abnormal rhythm irregularly irregular Heart sounds: S1 normal heart sound present, S2 normal heart sound present and no murmurs GI: Inspection: distended Auscultation: normal bowel sounds Skin: General skin exam: normal color Neuro: General: patient oriented x3 Cranial nerves: Yes Equal, round and reactive pupils present Extrem: General: abnormal to inspection, edema and pedal edema Other: 2+ bilateral pretibial and pedal edema. Erythema bilateral lower legs Psych: Appearance: grossly normal Mental Status: mental status grossly normal Objective Data Vital Signs Vital Signs: Vital Signs - 24 hr 06/20/25 10:00 06/20/25 11:32 06/20/25 12:00 Temperature 36.7 C Pulse Rate 111 H 103 H Respiratory Rate 16 Blood Pressure 97/51 L Pulse Oximetry 100 Oxygen Delivery Room Air 06/20/25 12:00 06/20/25 14:00 06/20/25 15:40 Temperature 36.8 C Pulse Rate 104 H 98 103 H Respiratory Rate 18 Blood Pressure 92/54 L Pulse Oximetry 99 Oxygen Delivery 06/20/25 16:00 06/20/25 16:00 06/20/25 18:00 Temperature Pulse Rate 93 111 H Respiratory Rate Blood Pressure Pulse Oximetry Oxygen Delivery Room Air 06/20/25 19:49 06/20/25 20:00 06/20/25 20:00 Temperature 36.6 C Pulse Rate 107 H 115 H Respiratory Rate 18 Blood Pressure 104/49 L Pulse Oximetry 97 Oxygen Delivery Room Air 06/20/25 22:00 06/20/25 23:30 06/20/25 23:43 Temperature 36.6 C Pulse Rate 110 H 122 H Respiratory Rate 18 Blood Pressure 130/79 Pulse Oximetry 95 Oxygen Delivery Room Air 06/21/25 00:00 06/21/25 02:00 06/21/25 03:09 Temperature Pulse Rate 109 H 116 H Respiratory Rate Blood Pressure Pulse Oximetry Oxygen Delivery Room Air 06/21/25 03:24 06/21/25 04:00 06/21/25 05:44 Temperature 36.6 C Pulse Rate 106 H 109 H 123 H Respiratory Rate 18 Blood Pressure 108/50 L Pulse Oximetry 97 Oxygen Delivery 06/21/25 07:52 Temperature 36.9 C Pulse Rate 126 H Respiratory Rate 20 Blood Pressure 97/47 L Pulse Oximetry 98 Oxygen Delivery Intake/Output Intake/Output: Intake & Output 06/18/25 06/19/25 06/20/25 06/21/25 23:59 23:59 23:59 23:59 Intake Total 1408.2 2756.4 1438.2 706.5 Output Total 5300 3150 3900 800 Balance -3891.8 -393.6 -2461.8 -93.5 Meds/Results Medications: Active Medications Generic Name Dose Route Start Last Admin Trade Name Freq PRN Reason Stop Dose Admin Albuterol 2 puff 06/16/25 22:11 Albuterol Sulfate (*Sp) Aerosol 1 Puff INHALATION Q4H PRN shortness of breath or wheezing Allopurinol 300 mg 06/17/25 08:00 06/20/25 08:35 Allopurinol 300 Mg Tablet PO 300 mg DAILY@0800 ALYSSA Administration Ascorbic Acid 125 mg 06/17/25 09:00 06/20/25 08:35 Ascorbic Acid 125 Mg Tablet BY MOUTH 125 mg DAILY ALYSSA Administration Atorvastatin Calcium 10 mg 06/17/25 09:00 06/20/25 08:35 Atorvastatin 10 Mg Tablet PO 10 mg DAILY ALYSSA Administration Benzonatate 100 mg 06/16/25 22:11 Benzonatate 100 Mg Capsule PO TID PRN cough Dextrose 12.5 gm 06/16/25 22:14 Dextrose 50% 25 Gm/50 Ml Syringe IV PUSH PRN PRN Hypoglycemia Protocol Furosemide 40 mg 06/19/25 17:00 06/21/25 05:34 Furosemide Inj 40 Mg/4 Ml Vial IV PUSH 40 mg Q12H ALYSSA Administration Glucagon 1 mg 06/16/25 22:14 Glucagon For Inj 1 Mg Vial IM PRN PRN Hypoglycemia Protocol Glucose 15 gm 06/16/25 22:14 Glucose Oral Gel 15 Gm Of Glucse In 37.5 Gm Tube PO PRN PRN Hypoglycemia Protocol Heparin Sodium (Porcine) 7,500 units 06/17/25 21:00 Heparin Sodium 5,000 Units/Ml Vial IV PUSH PRN PRN aPTT less than 55 seconds Heparin Sodium (Porcine) 4,000 units 06/17/25 21:00 06/20/25 13:00 Heparin Sodium 5,000 Units/Ml Vial IV PUSH 4,000 units PRN PRN Administration aPTT 55 - 70 seconds Dextrose 1,000 mls @ 100 mls/hr 06/16/25 22:14 Dextrose 5% 1,000 Ml IVPB PRN PRN Hypoglycemia Protocol Heparin Sodium/Dextrose 25,000 units in 250 mls @ 15 mls/hr 06/17/25 21:00 06/21/25 08:13 Heparin Sodium/D5w 100 Units/Ml IV CONT 1,500 units/hr .[id number] ALYSSA 15 mls/hr Protocol Titration 1,500 UNITS/HR Insulin Aspart 4 - 8 units 06/17/25 08:00 06/21/25 07:56 Insulin Aspart (*Bkc) 100 Units/Ml SUB-Q 5 units TIDWM ALYSSA Administration Protocol Insulin Glargine 15 units 06/17/25 09:00 06/20/25 08:35 Insulin Glargine (*Bkc) 100 Units/Ml SUB-Q 15 units QAM ALYSSA Administration Metoprolol Succinate 25 mg 06/17/25 09:00 06/20/25 08:35 Metoprolol Succinate Ext Rel 25 Mg Tabcr PO 25 mg DAILY ALYSSA Administration Miconazole Nitrate 1 applic 06/17/25 09:00 06/20/25 20:03 Miconazole Nitrate 2% Cream 30 Gm Tube TOPICAL 1 applic Q12HR ALYSSA Administration Midodrine 5 mg 06/20/25 17:00 06/20/25 16:45 Midodrine Hcl 2.5 Mg Tablet PO 5 mg TID ALYSSA Administration Ondansetron HCl 4 mg 06/16/25 16:23 Ondansetron Inj 4 Mg/2 Ml Vial IV PUSH Q4H PRN Nausea Potassium Chloride 10 meq 06/17/25 08:00 06/20/25 08:35 Potassium Chloride 10 Meq Er Tablet PO 10 meq DAILY@0800 ALYSSA Administration Potassium Chloride 40 meq 06/20/25 09:45 06/20/25 11:12 Potassium Chloride 20 Meq Er Tablet PO 40 meq DAILY ALYSSA Administration Sacubitril/Valsartan 1 tab 06/17/25 21:00 06/20/25 20:03 Sacubitril/Valsartan 24-26 Mg Tablet PO 1 tab Q12HR ALYSSA Administration Spironolactone 25 mg 06/20/25 09:00 06/20/25 08:35 Spironolactone 25 Mg Tablet PO 25 mg QAM ALYSSA Administration Radiology Results: ITS Impressions Chest X-Ray 06/16/25 14:25 IMPRESSION: 1. Bilateral airspace opacities and pulmonary vascular congestion with cardiomegaly. Findings may represent CHF versus atypical multifocal pneumonia. Clinical correlation is recommended. Short interval follow-up chest radiograph is recommended after appropriate clinical therapy to document resolution/stability. 2. Small right pleural effusion. Labs Labs: Laboratory Results - last 24 hr 06/20/25 06/20/25 06/20/25 11:24 11:55 15:43 WBC RBC Hgb Hct MCV MCH MCHC RDW Plt Count MPV APTT 68.4 H Sodium Potassium Chloride Carbon Dioxide Anion Gap BUN Creatinine Estim Creat Clear Calc Estimated GFR Glucose POC Capillary Glucose 263 H 308 H Calcium Total Bilirubin AST ALT Alkaline Phosphatase Total Protein Albumin 06/20/25 06/20/25 06/20/25 19:02 19:27 23:21 WBC RBC Hgb Hct MCV MCH MCHC RDW Plt Count MPV APTT 116.0 H Sodium Potassium Chloride Carbon Dioxide Anion Gap BUN Creatinine Estim Creat Clear Calc Estimated GFR Glucose POC Capillary Glucose 336 H 285 H Calcium Total Bilirubin AST ALT Alkaline Phosphatase Total Protein Albumin 06/21/25 06/21/25 06/21/25 02:02 07:12 07:47 WBC 8.0 RBC 4.99 Hgb 15.1 Hct 45.4 MCV 91.0 MCH 30.3 MCHC 33.3 RDW 15.8 H Plt Count 186 MPV 11.6 H APTT 73.9 H 73.7 H Sodium 134 L Potassium 3.4 Chloride 94 L Carbon Dioxide 30 Anion Gap 10 BUN 16 Creatinine 0.94 Estim Creat Clear Calc 81 Estimated GFR > 60 Glucose 294 H POC Capillary Glucose 279 H Calcium 9.4 Total Bilirubin 1.0 AST 20 ALT 19 Alkaline Phosphatase 112 Total Protein 6.8 Albumin 3.8
[2025-06-21] MEDS: METOPROLOL SUCCINATE EXT REL 25 MG TABCR PO (09:10)
[2025-06-21] MEDS: MIDODRINE HCL 2.5 MG TABLET 5 MG PO ×3 (09:10→16:57)
[2025-06-21] MEDS: MICONAZOLE NITRATE 2% CREAM 30 GM TUBE 1 APPLIC TOPICAL (09:10)
[2025-06-21] MEDS: POTASSIUM CHLORIDE 20 MEQ ER TABLET 40 MEQ PO (09:10)
[2025-06-21] MEDS: DIGOXIN INJ 250 MCG/ML 2 ML AMP (*BKC) IV PUSH ×2 (09:11→14:36)
[2025-06-21] MEDS: ATORVASTATIN 10 MG TABLET PO (09:11)
[2025-06-21] MEDS: INSULIN GLARGINE (*BKC) 100 UNITS/ML 15 UNITS SUB-Q (09:11)
[2025-06-21] MEDS: ASCORBIC ACID 125 MG TABLET BY MOUTH (09:11)
--- NOTE | 2025-06-21 12:31 | P.PNIM_ITS ---
Progress Note: A&P Assessment and Plan (1) CHF (congestive heart failure): Qualifiers: Heart failure chronicity: acute Heart failure type: systolic Qualified Code(s): I50.21 - Acute systolic (congestive) heart failure Code(s): I50.9 - Heart failure, unspecified Status: Acute Assessment and Plan: - acute exacerbation of CHF - BNP 3890 - most recent echo (06/13/25): systolic function was severely globally reduced, EF of 20-25%, diastolic function abnormal, AFib, and mild valvular disease with no pulmonary hypertension - monitor I&Os and daily weights - trend renal function on Metoprolol 25mg and Midodrine for pressure support Continue Lasix per cardiology For cardiac cath pending adequate diuresis cardiology following (2) Diabetes mellitus: Qualifiers: Diabetes mellitus type: type 2 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 Hold glipizide. - correct regimen ordered - high dose TIDWM, based off BMI - A1C 8.5% on 05/20/2025 (3) Paroxysmal atrial fibrillation: Code(s): I48.0 - Paroxysmal atrial fibrillation Status: Chronic Assessment and Plan: - continue home medications: Metoprolol 25 mg ER and Xarelto. (4) Hypertension: Qualifiers: Hypertension type: essential hypertension Qualified Code(s): I10 - Essential (primary) hypertension Code(s): I10 - Essential (primary) hypertension Status: Chronic Assessment and Plan: - chronic, currently 100/80 - continue home medications: Losartan, Amlodipine - monitor Plan Patient additionally has erythematous rash to bilateral lower extremities that appears consistent with cutaneous candidiasis. Ketoconazole topical ordered. Diet: Heart healthy DVT Prophylaxis: Xarelto Code Status: Full code Subjective Date/time seen: 06/21/25 12:31 Interval history: Comfortable at bedside Review of Systems Review of Systems: All systems reviewed & are unremarkable except as noted in HPI and below Exam 2 Const: General: comfortable and no acute distress Other: , male, nontoxic appearance HENMT: Face/Nose/Sinus: Normal nares present Mouth: Yes moist mucous membranes Eyes: General: appearance normal, both eyes and all related structures Sclera: sclerae normal Pupils: Equal, round and reactive pupils present EOM: EOMs intact bilaterally Resp: Effort & Inspection: normal respiratory effort Auscultation: clear to auscultation bilaterally Cardio: Rate: tachycardic Rhythm: abnormal rhythm Other: Normal murmur or rub. GI: Other: Abdomen tight and rounded but nontender. Normoactive bowel sounds in all quadrants. Skin: General skin exam: normal color Wounds: no wounds Other: Erythematous rash to bilateral lower extremities with no open wound is and mild scaling. Neuro: Cranial nerves: Yes Equal, round and reactive pupils present Speech: normal speech Motor exam (neuro): 5/5 motor strength present throughout Sensory Exam: normal sensation Other: A&O x4 Extrem: Other: 2 to 3+ pitting edema to bilateral lower extremity eyes starting at thigh extending to ankles, symmetric. Very tight on exam. Psych: Mental Status: mental status grossly normal Affect: normal affect Other: Good insight and judgment, very pleasant Objective Data Vital Signs Vital Signs: Vital Signs - 24 hr 06/20/25 14:00 06/20/25 15:40 06/20/25 16:00 Temperature 98.2 F Pulse Rate 98 103 H Respiratory Rate 18 Blood Pressure 92/54 L Pulse Oximetry 99 Oxygen Delivery Room Air 06/20/25 16:00 06/20/25 18:00 06/20/25 19:49 Temperature 98 F Pulse Rate 93 111 H 107 H Respiratory Rate 18 Blood Pressure 104/49 L Pulse Oximetry 97 Oxygen Delivery 06/20/25 20:00 06/20/25 20:00 06/20/25 22:00 Temperature Pulse Rate 115 H 110 H Respiratory Rate Blood Pressure Pulse Oximetry Oxygen Delivery Room Air 06/20/25 23:30 06/20/25 23:43 06/21/25 00:00 Temperature 98 F Pulse Rate 122 H 109 H Respiratory Rate 18 Blood Pressure 130/79 Pulse Oximetry 95 Oxygen Delivery Room Air 06/21/25 02:00 06/21/25 03:09 06/21/25 03:24 Temperature 97.9 F Pulse Rate 116 H 106 H Respiratory Rate 18 Blood Pressure 108/50 L Pulse Oximetry 97 Oxygen Delivery Room Air 06/21/25 04:00 06/21/25 05:44 06/21/25 07:52 Temperature 98.5 F Pulse Rate 109 H 123 H 126 H Respiratory Rate 20 Blood Pressure 97/47 L Pulse Oximetry 98 Oxygen Delivery 06/21/25 08:00 06/21/25 08:00 06/21/25 09:10 Temperature Pulse Rate 112 H 118 H Respiratory Rate Blood Pressure Pulse Oximetry Oxygen Delivery Room Air 06/21/25 09:11 06/21/25 10:00 06/21/25 10:00 Temperature Pulse Rate 118 H 126 H 126 H Respiratory Rate Blood Pressure 116/53 L Pulse Oximetry Oxygen Delivery 06/21/25 12:00 06/21/25 12:00 06/21/25 12:00 Temperature 98.1 F Pulse Rate 130 H 105 H Respiratory Rate 15 Blood Pressure 100/51 L Pulse Oximetry 98 Oxygen Delivery Room Air Intake/Output Intake/Output: Intake & Output 06/18/25 06/19/25 06/20/25 06/21/25 23:59 23:59 23:59 23:59 Intake Total 1408.2 2756.4 1438.2 946.5 Output Total 5300 3150 3900 800 Balance -3891.8 -393.6 -2461.8 146.5 Meds/Results Medications: Active Medications Generic Name Dose Route Start Last Admin Trade Name Freq PRN Reason Stop Dose Admin Albuterol 2 puff 06/16/25 22:11 Albuterol Sulfate (*Sp) Aerosol 1 Puff INHALATION Q4H PRN shortness of breath or wheezing Allopurinol 300 mg 06/17/25 08:00 06/21/25 09:14 Allopurinol 300 Mg Tablet PO 300 mg DAILY@0800 ALYSSA Administration Ascorbic Acid 125 mg 06/17/25 09:00 06/21/25 09:11 Ascorbic Acid 125 Mg Tablet BY MOUTH 125 mg DAILY ALYSSA Administration Atorvastatin Calcium 10 mg 06/17/25 09:00 06/21/25 09:11 Atorvastatin 10 Mg Tablet PO 10 mg DAILY ALYSSA Administration Benzonatate 100 mg 06/16/25 22:11 Benzonatate 100 Mg Capsule PO TID PRN cough Dextrose 12.5 gm 06/16/25 22:14 Dextrose 50% 25 Gm/50 Ml Syringe IV PUSH PRN PRN Hypoglycemia Protocol Digoxin 250 mcg 06/21/25 15:00 Digoxin Inj 250 Mcg/Ml 2 Ml Amp (*Bkc) IV PUSH 06/21/25 15:01 ONCE ONE Furosemide 40 mg 06/21/25 09:00 06/21/25 09:04 Furosemide Inj 40 Mg/4 Ml Vial IV PUSH Not Given TID ALYSSA Glucagon 1 mg 06/16/25 22:14 Glucagon For Inj 1 Mg Vial IM PRN PRN Hypoglycemia Protocol Glucose 15 gm 06/16/25 22:14 Glucose Oral Gel 15 Gm Of Glucse In 37.5 Gm Tube PO PRN PRN Hypoglycemia Protocol Heparin Sodium (Porcine) 7,500 units 06/17/25 21:00 Heparin Sodium 5,000 Units/Ml Vial IV PUSH PRN PRN aPTT less than 55 seconds Heparin Sodium (Porcine) 4,000 units 06/17/25 21:00 06/20/25 13:00 Heparin Sodium 5,000 Units/Ml Vial IV PUSH 4,000 units PRN PRN Administration aPTT 55 - 70 seconds Dextrose 1,000 mls @ 100 mls/hr 06/16/25 22:14 Dextrose 5% 1,000 Ml IVPB PRN PRN Hypoglycemia Protocol Heparin Sodium/Dextrose 25,000 units in 250 mls @ 15 mls/hr 06/17/25 21:00 06/21/25 08:13 Heparin Sodium/D5w 100 Units/Ml IV CONT 1,500 units/hr .[id number] ALYSSA 15 mls/hr Protocol Titration 1,500 UNITS/HR Insulin Aspart 4 - 8 units 06/17/25 08:00 06/21/25 11:33 Insulin Aspart (*Bkc) 100 Units/Ml SUB-Q 5 units TIDWM ALYSSA Administration Protocol Insulin Glargine 15 units 06/17/25 09:00 06/21/25 09:11 Insulin Glargine (*Bkc) 100 Units/Ml SUB-Q 15 units QAM ALYSSA Administration Metoprolol Succinate 25 mg 06/17/25 09:00 06/21/25 09:10 Metoprolol Succinate Ext Rel 25 Mg Tabcr PO 25 mg DAILY ALYSSA Administration Miconazole Nitrate 1 applic 06/17/25 09:00 06/21/25 09:10 Miconazole Nitrate 2% Cream 30 Gm Tube TOPICAL 1 applic Q12HR ALYSSA Administration Midodrine 5 mg 06/20/25 17:00 06/21/25 12:05 Midodrine Hcl 2.5 Mg Tablet PO 5 mg TID ALYSSA Administration Ondansetron HCl 4 mg 06/16/25 16:23 Ondansetron Inj 4 Mg/2 Ml Vial IV PUSH Q4H PRN Nausea Potassium Chloride 40 meq 06/20/25 09:45 06/21/25 09:10 Potassium Chloride 20 Meq Er Tablet PO 40 meq DAILY ALYSSA Administration Radiology Results: ITS Impressions Chest X-Ray 06/16/25 14:25 IMPRESSION: 1. Bilateral airspace opacities and pulmonary vascular congestion with cardiomegaly. Findings may represent CHF versus atypical multifocal pneumonia. Clinical correlation is recommended. Short interval follow-up chest radiograph is recommended after appropriate clinical therapy to document resolution/stability. 2. Small right pleural effusion. Labs Labs: Laboratory Results - last 24 hr 06/20/25 06/20/25 06/20/25 15:43 19:02 19:27 WBC RBC Hgb Hct MCV MCH MCHC RDW Plt Count MPV APTT 116.0 H Sodium Potassium Chloride Carbon Dioxide Anion Gap BUN Creatinine Estim Creat Clear Calc Estimated GFR Glucose POC Capillary Glucose 308 H 336 H Calcium Total Bilirubin AST ALT Alkaline Phosphatase Total Protein Albumin 06/20/25 06/21/25 06/21/25 23:21 02:02 07:12 WBC RBC Hgb Hct MCV MCH MCHC RDW Plt Count MPV APTT 73.9 H Sodium Potassium Chloride Carbon Dioxide Anion Gap BUN Creatinine Estim Creat Clear Calc Estimated GFR Glucose POC Capillary Glucose 285 H 279 H Calcium Total Bilirubin AST ALT Alkaline Phosphatase Total Protein Albumin 06/21/25 06/21/25 07:47 11:26 WBC 8.0 RBC 4.99 Hgb 15.1 Hct 45.4 MCV 91.0 MCH 30.3 MCHC 33.3 RDW 15.8 H Plt Count 186 MPV 11.6 H APTT 73.7 H Sodium 134 L Potassium 3.4 Chloride 94 L Carbon Dioxide 30 Anion Gap 10 BUN 16 Creatinine 0.94 Estim Creat Clear Calc 81 Estimated GFR > 60 Glucose 294 H POC Capillary Glucose 270 H Calcium 9.4 Total Bilirubin 1.0 AST 20 ALT 19 Alkaline Phosphatase 112 Total Protein 6.8 Albumin 3.8 Quality VTE Prophylaxis VTE prophylaxis: pharmacologic ordered
[2025-06-22] VITALS (18 sets, daily range): BP systolic 105–129; BP diastolic 49–67; PULSE 60–122; RESP 15–24; TEMP 36.7–37.1; O2SAT 93–98
[2025-06-22 01:13] LABS: Thyroid Stimulating Hormone Reflex 1.180 uIU/mL (0.465-4.68)
[2025-06-22 05:13] LABS: Hematocrit 46.7 % (42.0-52.0); Hemoglobin 15.0 g/dL (14.0-18.0); Immature Granulocyte Percent A 0.6 % (0-0.5); Lymphocytes Absolute Auto 1.73 K/mm3 (0.9-3.2); Mean Corpuscular HGB Conc 32.1 g/dl (32-36); Mean Corpuscular Hemoglobin 29.7 pg (26-34); Mean Corpuscular Volume 92.5 fl (80-100); Nucleated Red Blood Cells Absolute Auto 0.000 K/mm3 (0.0-0.012); Nucleated Red Blood Cells Perc 0.0 % (0.0-0.2); Platelet Count Result 207 k/mm3 (150-375); Red Blood Count 5.05 M/mm3 (4.6-6.20); White Blood Count 8.6 K/mm3 (4.5-10.0)
[2025-06-22 05:24] LABS: Partial Thromboplastin Time 57.8 Seconds (22.3-36.8)
[2025-06-22 05:35] LABS: Alanine Aminotransferase 19 U/L (6-50); Albumin Level 3.8 g/dL (3.5-5.1); Alkaline Phosphatase 98 U/L (38-126); Anion Gap 8 mmol/L (4-12); Aspartate Amino Transferase 22 U/L (17-59); Bilirubin,Total 1.0 mg/dL (0.2-1.3); Blood Urea Nitrogen 23 mg/dL (9-20); Calcium 9.9 mg/dL (8.4-10.2); Carbon Dioxide 34 mmol/L (22-30); Chloride 91 mmol/L (98-107); Estimated CRCL calculation 72 ml/min; Estimated Glomerular Filt Rate > 60; Glucose 268 mg/dL (65-110); Magnesium 1.4 mg/dL (1.6-2.3); Potassium 3.7 mmol/L (3.4-5.0); Sodium 133 mmol/L (137-145); Total Protein 6.9 g/dL (6.3-8.2)
--- NOTE | 2025-06-22 07:33 | PM.PNCARD ---
Progress Note: A&P Assessment and Plan (1) Cardiomyopathy: Code(s): I42.9 - Cardiomyopathy, unspecified Status: Acute Assessment and Plan: New diagnosis severe cardiomyopathy. -continue metoprolol succinate 25 daily -discontinue Entresto, spironolactone given soft blood pressure. We need to have adequate blood pressure to achieve adequate diuresis. -increase continue IV Lasix 40 mg t.i.d.. -administer metolazone 2.5 mg x 1 today. -order magnesium sulfate 3 g and potassium chloride. (2) CHF (congestive heart failure): Qualifiers: Heart failure chronicity: acute Heart failure type: systolic Qualified Code(s): I50.21 - Acute systolic (congestive) heart failure Code(s): I50.9 - Heart failure, unspecified Status: Acute (3) Paroxysmal atrial fibrillation: Code(s): I48.0 - Paroxysmal atrial fibrillation Status: Chronic Assessment and Plan: -he continues to have elevated heart rates. Continue Toprol-XL 25 mg daily. Start amiodarone 400 mg b.i.d.. -continue IV heparin for now and transition to new anticoagulant. -will need to be tested for sleep apnea and treated for sleep apnea. I am pretty sure he has a very bad sleep apnea. This can be done as an outpatient. -TSH during this admission was normal. 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 Subjective Date/time seen: 06/22/25 07:33 Interval history: Cardiology follow up visit No acute events overnight Denies chest pain Making urine Date of service 06/19/2025: He feels ok today. Diuresing well, but still has significant edema. No chest pain, palpitations. Date of service 06/20/2025: No acute events overnight. Feeling ok. Still has orthopnea, unable to sleep in bed. Edema slowly improving. No palpitations. Date of service 06/21/2025-sitting on chair. He is very edematous. AFib with RVR. Blood pressure is soft. Date of service 06/22/2025: Resting comfortably on chair. Remains tachycardic with AFib. Remains edematous although patient feels it is improving. He does have edema up to the thighs. Review of Systems Review of Systems: All systems reviewed & are unremarkable except as noted in HPI and below Exam Const: General: comfortable, no acute distress, alert and awake Orientation/consciousness: patient oriented x3 HENMT: Head: normal to inspection Eyes: General: appearance normal, both eyes and all related structures Pupils: Equal, round and reactive pupils present Neck: Neck: normal visual inspection and supple Carotids: normal carotid upstroke Other: Unable to assess for JVD given body habitus. Resp: Effort & Inspection: normal respiratory effort Auscultation: not clear to auscultation bilaterally and rales bilateral 1/[address] up Cardio: Rate: regular rate Rhythm: regular rhythm and abnormal rhythm irregularly irregular Heart sounds: S1 normal heart sound present, S2 normal heart sound present and no murmurs GI: Inspection: distended Auscultation: normal bowel sounds Skin: General skin exam: normal color Neuro: General: patient oriented x3 Cranial nerves: Yes Equal, round and reactive pupils present Extrem: General: abnormal to inspection, edema and pedal edema Other: 2+ bilateral pretibial and pedal edema. Erythema bilateral lower legs Psych: Appearance: grossly normal Mental Status: mental status grossly normal Objective Data Vital Signs Vital Signs: Vital Signs - 24 hr 06/21/25 07:52 06/21/25 08:00 06/21/25 08:00 Temperature 36.9 C Pulse Rate 126 H 112 H Respiratory Rate 20 Blood Pressure 97/47 L Pulse Oximetry 98 Oxygen Delivery Room Air 06/21/25 09:10 06/21/25 09:11 06/21/25 10:00 Temperature Pulse Rate 118 H 118 H 126 H Respiratory Rate Blood Pressure 116/53 L Pulse Oximetry Oxygen Delivery 06/21/25 10:00 06/21/25 12:00 06/21/25 12:00 Temperature 36.7 C Pulse Rate 126 H 130 H Respiratory Rate 15 Blood Pressure 100/51 L Pulse Oximetry 98 Oxygen Delivery Room Air 06/21/25 12:00 06/21/25 14:00 06/21/25 14:00 Temperature Pulse Rate 105 H 111 H Respiratory Rate Blood Pressure 119/68 Pulse Oximetry Oxygen Delivery 06/21/25 14:36 06/21/25 15:01 06/21/25 15:52 Temperature Pulse Rate 97 Respiratory Rate Blood Pressure Pulse Oximetry Oxygen Delivery Room Air Room Air 06/21/25 15:59 06/21/25 16:00 06/21/25 18:00 Temperature 36.8 C Pulse Rate 108 H 102 H 105 H Respiratory Rate 18 Blood Pressure 128/55 L Pulse Oximetry 97 Oxygen Delivery 06/21/25 19:30 06/21/25 19:45 06/21/25 20:00 Temperature 36.9 C Pulse Rate 106 H 105 H Respiratory Rate 18 Blood Pressure 116/46 L Pulse Oximetry 99 Oxygen Delivery Room Air 06/21/25 21:56 06/21/25 23:35 06/21/25 23:35 Temperature 36.9 C Pulse Rate 124 H 112 H Respiratory Rate 18 Blood Pressure 112/40 L Pulse Oximetry 95 Oxygen Delivery Room Air 06/22/25 00:00 06/22/25 02:00 06/22/25 03:17 Temperature Pulse Rate 70 112 H Respiratory Rate Blood Pressure Pulse Oximetry Oxygen Delivery Room Air 06/22/25 03:22 06/22/25 04:00 06/22/25 06:00 Temperature 36.8 C Pulse Rate 110 H 113 H 114 H Respiratory Rate 15 Blood Pressure 117/49 L Pulse Oximetry 97 Oxygen Delivery Intake/Output Intake/Output: Intake & Output 06/19/25 06/20/25 06/21/25 06/22/25 23:59 23:59 23:59 23:59 Intake Total 2756.4 1438.2 1390.9 115.5 Output Total 3150 3900 3950 600 Balance -393.6 -2461.8 -2559.1 -484.5 Meds/Results Medications: Active Medications Generic Name Dose Route Start Last Admin Trade Name Freq PRN Reason Stop Dose Admin Albuterol 2 puff 06/16/25 22:11 Albuterol Sulfate (*Sp) Aerosol 1 Puff INHALATION Q4H PRN shortness of breath or wheezing Allopurinol 300 mg 06/17/25 08:00 06/21/25 09:14 Allopurinol 300 Mg Tablet PO 300 mg DAILY@0800 ALYSSA Administration Ascorbic Acid 125 mg 06/17/25 09:00 06/21/25 09:11 Ascorbic Acid 125 Mg Tablet BY MOUTH 125 mg DAILY ALYSSA Administration Atorvastatin Calcium 10 mg 06/17/25 09:00 06/21/25 09:11 Atorvastatin 10 Mg Tablet PO 10 mg DAILY ALYSSA Administration Benzonatate 100 mg 06/16/25 22:11 Benzonatate 100 Mg Capsule PO TID PRN cough Dextrose 12.5 gm 06/16/25 22:14 Dextrose 50% 25 Gm/50 Ml Syringe IV PUSH PRN PRN Hypoglycemia Protocol Furosemide 40 mg 06/21/25 09:00 06/21/25 16:57 Furosemide Inj 40 Mg/4 Ml Vial IV PUSH 40 mg TID ALYSSA Administration Glucagon 1 mg 06/16/25 22:14 Glucagon For Inj 1 Mg Vial IM PRN PRN Hypoglycemia Protocol Glucose 15 gm 06/16/25 22:14 Glucose Oral Gel 15 Gm Of Glucse In 37.5 Gm Tube PO PRN PRN Hypoglycemia Protocol Heparin Sodium (Porcine) 7,500 units 06/17/25 21:00 Heparin Sodium 5,000 Units/Ml Vial IV PUSH PRN PRN aPTT less than 55 seconds Heparin Sodium (Porcine) 4,000 units 06/17/25 21:00 06/22/25 05:32 Heparin Sodium 5,000 Units/Ml Vial IV PUSH 4,000 units PRN PRN Administration aPTT 55 - 70 seconds Dextrose 1,000 mls @ 100 mls/hr 06/16/25 22:14 Dextrose 5% 1,000 Ml IVPB PRN PRN Hypoglycemia Protocol Heparin Sodium/Dextrose 25,000 units in 250 mls @ 17 mls/hr 06/17/25 21:00 06/22/25 05:32 Heparin Sodium/D5w 100 Units/Ml IV CONT 1,700 units/hr .[id number] ALYSSA 17 mls/hr Protocol Titration 1,700 UNITS/HR Insulin Aspart 4 - 8 units 06/17/25 08:00 06/21/25 16:46 Insulin Aspart (*Bkc) 100 Units/Ml SUB-Q 8 units TIDWM ALYSSA Administration Protocol Insulin Glargine 15 units 06/17/25 09:00 06/21/25 09:11 Insulin Glargine (*Bkc) 100 Units/Ml SUB-Q 15 units QAM ALYSSA Administration Metoprolol Succinate 25 mg 06/17/25 09:00 06/21/25 09:10 Metoprolol Succinate Ext Rel 25 Mg Tabcr PO 25 mg DAILY ALYSSA Administration Miconazole Nitrate 1 applic 06/17/25 09:00 06/21/25 19:32 Miconazole Nitrate 2% Cream 30 Gm Tube TOPICAL Not Given Q12HR [facility] Midodrine 5 mg 06/20/25 17:00 06/21/25 16:57 Midodrine Hcl 2.5 Mg Tablet PO 5 mg TID ALYSSA Administration Ondansetron HCl 4 mg 06/16/25 16:23 Ondansetron Inj 4 Mg/2 Ml Vial IV PUSH Q4H PRN Nausea Potassium Chloride 40 meq 06/20/25 09:45 06/21/25 09:10 Potassium Chloride 20 Meq Er Tablet PO 40 meq DAILY ALYSSA Administration Radiology Results: ITS Impressions Chest X-Ray 06/16/25 14:25 IMPRESSION: 1. Bilateral airspace opacities and pulmonary vascular congestion with cardiomegaly. Findings may represent CHF versus atypical multifocal pneumonia. Clinical correlation is recommended. Short interval follow-up chest radiograph is recommended after appropriate clinical therapy to document resolution/stability. 2. Small right pleural effusion. Labs Labs: Laboratory Results - last 24 hr 06/21/25 06/21/25 06/21/25 07:12 07:47 11:26 WBC 8.0 RBC 4.99 Hgb 15.1 Hct 45.4 MCV 91.0 MCH 30.3 MCHC 33.3 RDW 15.8 H Plt Count 186 MPV 11.6 H Immature Gran % (Auto) Neut % (Auto) Lymph % (Auto) [place] % (Auto) Eos % (Auto) Baso % (Auto) Lymph # (Auto) [place] # (Auto) Eos # (Auto) Baso # (Auto) Abs Immat Gran (auto) Absolute Neuts (auto) Absolute Nucleated RBC Nucleated RBC % APTT 73.7 H Sodium 134 L Potassium 3.4 Chloride 94 L Carbon Dioxide 30 Anion Gap 10 BUN 16 Creatinine 0.94 Estim Creat Clear Calc 81 Estimated GFR > 60 Glucose 294 H POC Capillary Glucose 279 H 270 H Calcium 9.4 Magnesium Total Bilirubin 1.0 AST 20 ALT 19 Alkaline Phosphatase 112 Total Protein 6.8 Albumin 3.8 TSH (Reflex) 1.180 06/21/25 06/21/25 06/22/25 16:18 20:28 05:04 WBC 8.6 RBC 5.05 Hgb 15.0 Hct 46.7 MCV 92.5 MCH 29.7 MCHC 32.1 RDW 15.9 H Plt Count 207 MPV 11.4 H Immature Gran % (Auto) 0.6 H Neut % (Auto) 67.6 Lymph % (Auto) 20.0 [place] % (Auto) 8.3 Eos % (Auto) 3.0 Baso % (Auto) 0.5 Lymph # (Auto) 1.73 [place] # (Auto) 0.7 H Eos # (Auto) 0.3 Baso # (Auto) 0.0 Abs Immat Gran (auto) 0.05 H Absolute Neuts (auto) 5.8 Absolute Nucleated RBC 0.000 Nucleated RBC % 0.0 APTT 57.8 H Sodium 133 L Potassium 3.7 Chloride 91 L Carbon Dioxide 34 H Anion Gap 8 BUN 23 H Creatinine 1.04 Estim Creat Clear Calc 72 Estimated GFR > 60 Glucose 268 H POC Capillary Glucose 357 H 244 H Calcium 9.9 Magnesium 1.4 L Total Bilirubin 1.0 AST 22 ALT 19 Alkaline Phosphatase 98 Total Protein 6.9 Albumin 3.8 TSH (Reflex) 06/22/25 07:15 WBC RBC Hgb Hct MCV MCH MCHC RDW Plt Count MPV Immature Gran % (Auto) Neut % (Auto) Lymph % (Auto) [place] % (Auto) Eos % (Auto) Baso % (Auto) Lymph # (Auto) [place] # (Auto) Eos # (Auto) Baso # (Auto) Abs Immat Gran (auto) Absolute Neuts (auto) Absolute Nucleated RBC Nucleated RBC % APTT Sodium Potassium Chloride Carbon Dioxide Anion Gap BUN Creatinine Estim Creat Clear Calc Estimated GFR Glucose POC Capillary Glucose 280 H Calcium Magnesium Total Bilirubin AST ALT Alkaline Phosphatase Total Protein Albumin TSH (Reflex)
[2025-06-22] MEDS: MICONAZOLE NITRATE 2% CREAM 30 GM TUBE 1 APPLIC TOPICAL ×2 (08:12→20:55)
[2025-06-22] MEDS: MIDODRINE HCL 2.5 MG TABLET 5 MG PO ×3 (08:12→16:19)
[2025-06-22] MEDS: METOPROLOL SUCCINATE EXT REL 25 MG TABCR PO (08:13)
[2025-06-22] MEDS: AMIODARONE HCL 200 MG TABLET 400 MG PO ×2 (08:13→16:19)
[2025-06-22] MEDS: FUROSEMIDE INJ 40 MG/4 ML VIAL IV PUSH ×3 (08:13→16:19)
[2025-06-22] MEDS: ASCORBIC ACID 125 MG TABLET BY MOUTH (08:13)
[2025-06-22] MEDS: INSULIN GLARGINE (*BKC) 100 UNITS/ML 15 UNITS SUB-Q ×2 (08:13→20:56)
[2025-06-22] MEDS: ATORVASTATIN 10 MG TABLET PO (08:13)
[2025-06-22] MEDS: INSULIN ASPART (*BKC) 100 UNITS/ML SUB-Q ×4 (08:14→20:55)
[2025-06-22] MEDS: POTASSIUM CHLORIDE 20 MEQ PACKET (FOR LIQUID) 40 MEQ PO (08:14)
[2025-06-22] MEDS: MAGNESIUM SULFATE 3GM/D5W100ML 3 GM/100 ML BAG IVPB (08:33)
--- NOTE | 2025-06-22 11:23 | P.PNIM_ITS ---
Progress Note: A&P Assessment and Plan (1) CHF (congestive heart failure): Qualifiers: Heart failure chronicity: acute Heart failure type: systolic Qualified Code(s): I50.21 - Acute systolic (congestive) heart failure Code(s): I50.9 - Heart failure, unspecified Status: Acute Assessment and Plan: - acute exacerbation of CHF - BNP 3890 - most recent echo (06/13/25): systolic function was severely globally reduced, EF of 20-25%, diastolic function abnormal, AFib, and mild valvular disease with no pulmonary hypertension - monitor I&Os and daily weights - trend renal function on Metoprolol 25mg and Midodrine for pressure support Continue Lasix per cardiology For cardiac cath pending adequate diuresis cardiology following (2) Diabetes mellitus: Qualifiers: Diabetes mellitus type: type 2 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 Hold glipizide. - correct regimen ordered - high dose TIDWM, based off BMI - A1C 8.5% on 05/20/2025 (3) Paroxysmal atrial fibrillation: Code(s): I48.0 - Paroxysmal atrial fibrillation Status: Chronic Assessment and Plan: - continue home medications: Metoprolol 25 mg ER and Xarelto. (4) Hypertension: Qualifiers: Hypertension type: essential hypertension Qualified Code(s): I10 - Essential (primary) hypertension Code(s): I10 - Essential (primary) hypertension Status: Chronic Assessment and Plan: - chronic, currently 100/80 - continue home medications: Losartan, Amlodipine - monitor Plan Patient additionally has erythematous rash to bilateral lower extremities that appears consistent with cutaneous candidiasis. Ketoconazole topical ordered. Diet: Heart healthy DVT Prophylaxis: Xarelto Code Status: Full code Subjective Date/time seen: 06/22/25 11:23 Interval history: Comfort at bedside Review of Systems Review of Systems: All systems reviewed & are unremarkable except as noted in HPI and below Exam Const: General: comfortable and no acute distress Other: , male, nontoxic appearance HENMT: Face/Nose/Sinus: Normal nares present Mouth: Yes moist mucous membranes Eyes: General: appearance normal, both eyes and all related structures Sclera: sclerae normal Pupils: Equal, round and reactive pupils present EOM: EOMs intact bilaterally Resp: Effort & Inspection: normal respiratory effort Auscultation: clear to auscultation bilaterally Cardio: Rate: tachycardic Rhythm: abnormal rhythm Other: Normal murmur or rub. GI: Other: Abdomen tight and rounded but nontender. Normoactive bowel sounds in all quadrants. Skin: General skin exam: normal color Wounds: no wounds Other: Erythematous rash to bilateral lower extremities with no open wound is and mild scaling. Neuro: Cranial nerves: Yes Equal, round and reactive pupils present Speech: normal speech Motor exam (neuro): 5/5 motor strength present throughout S ensory Exam: normal sensation Other: A&O x4 Extrem: Other: 2 to 3+ pitting edema to bilateral lower extremity eyes starting at thigh extending to ankles, symmetric. Very tight on exam. Psych: Mental Status: mental status grossly normal Affect: normal affect Other: Good insight and judgment, very pleasant Objective Data Vital Signs Vital Signs: Vital Signs - 24 hr 06/21/25 12:00 06/21/25 12:00 06/21/25 12:00 Temperature 98.1 F Pulse Rate 130 H 105 H Respiratory Rate 15 Blood Pressure 100/51 L Pulse Oximetry 98 Oxygen Delivery Room Air 06/21/25 14:00 06/21/25 14:00 06/21/25 14:36 Temperature Pulse Rate 111 H 97 Respiratory Rate Blood Pressure 119/68 Pulse Oximetry Oxygen Delivery 06/21/25 15:01 06/21/25 15:52 06/21/25 15:59 Temperature 98.2 F Pulse Rate 108 H Respiratory Rate 18 Blood Pressure 128/55 L Pulse Oximetry 97 Oxygen Delivery Room Air Room Air 06/21/25 16:00 06/21/25 18:00 06/21/25 19:30 Temperature 98.4 F Pulse Rate 102 H 105 H 106 H Respiratory Rate 18 Blood Pressure 116/46 L Pulse Oximetry 99 Oxygen Delivery 06/21/25 19:45 06/21/25 20:00 06/21/25 21:56 Temperature Pulse Rate 105 H 124 H Respiratory Rate Blood Pressure Pulse Oximetry Oxygen Delivery Room Air 06/21/25 23:35 06/21/25 23:35 06/22/25 00:00 Temperature 98.5 F Pulse Rate 112 H 70 Respiratory Rate 18 Blood Pressure 112/40 L Pulse Oximetry 95 Oxygen Delivery Room Air 06/22/25 02:00 06/22/25 03:17 06/22/25 03:22 Temperature 98.2 F Pulse Rate 112 H 110 H Respiratory Rate 15 Blood Pressure 117/49 L Pulse Oximetry 97 Oxygen Delivery Room Air 06/22/25 04:00 06/22/25 06:00 06/22/25 08:00 Temperature 98.0 F Pulse Rate 113 H 114 H 60 Respiratory Rate 20 Blood Pressure 114/67 Pulse Oximetry 96 Oxygen Delivery 06/22/25 08:00 06/22/25 08:00 06/22/25 08:13 Temperature Pulse Rate 114 H 122 H Respiratory Rate Blood Pressure Pulse Oximetry Oxygen Delivery Room Air 06/22/25 08:13 06/22/25 09:50 06/22/25 10:00 Temperature Pulse Rate 122 H 116 H Respiratory Rate Blood Pressure Pulse Oximetry Oxygen Delivery Room Air Intake/Output Intake/Output: Intake & Output 06/19/25 06/20/25 06/21/25 06/22/25 23:59 23:59 23:59 23:59 Intake Total 2756.4 1438.2 1390.9 355.5 Output Total 3150 3900 3950 600 Balance -393.6 -2461.8 -2559.1 -244.5 Meds/Results Medications: Active Medications Generic Name Dose Route Start Last Admin Trade Name Freq PRN Reason Stop Dose Admin Albuterol 2 puff 06/16/25 22:11 Albuterol Sulfate (*Sp) Aerosol 1 Puff INHALATION Q4H PRN shortness of breath or wheezing Allopurinol 300 mg 06/17/25 08:00 06/22/25 08:14 Allopurinol 300 Mg Tablet PO 300 mg DAILY@0800 ALYSSA Administration Amiodarone HCl 400 mg 06/22/25 09:00 06/22/25 08:13 Amiodarone Hcl 200 Mg Tablet PO 400 mg BID ALYSSA Administration Ascorbic Acid 125 mg 06/17/25 09:00 06/22/25 08:13 Ascorbic Acid 125 Mg Tablet BY MOUTH 125 mg DAILY ALYSSA Administration Atorvastatin Calcium 10 mg 06/17/25 09:00 06/22/25 08:13 Atorvastatin 10 Mg Tablet PO 10 mg DAILY ALYSSA Administration Benzonatate 100 mg 06/16/25 22:11 Benzonatate 100 Mg Capsule PO TID PRN cough Dextrose 12.5 gm 06/16/25 22:14 Dextrose 50% 25 Gm/50 Ml Syringe IV PUSH PRN PRN Hypoglycemia Protocol Furosemide 40 mg 06/21/25 09:00 06/22/25 08:13 Furosemide Inj 40 Mg/4 Ml Vial IV PUSH 40 mg TID ALYSSA Administration Glucagon 1 mg 06/16/25 22:14 Glucagon For Inj 1 Mg Vial IM PRN PRN Hypoglycemia Protocol Glucose 15 gm 06/16/25 22:14 Glucose Oral Gel 15 Gm Of Glucse In 37.5 Gm Tube PO PRN PRN Hypoglycemia Protocol Heparin Sodium (Porcine) 7,500 units 06/17/25 21:00 Heparin Sodium 5,000 Units/Ml Vial IV PUSH PRN PRN aPTT less than 55 seconds Heparin Sodium (Porcine) 4,000 units 06/17/25 21:00 06/22/25 05:32 Heparin Sodium 5,000 Units/Ml Vial IV PUSH 4,000 units PRN PRN Administration aPTT 55 - 70 seconds Dextrose 1,000 mls @ 100 mls/hr 06/16/25 22:14 Dextrose 5% 1,000 Ml IVPB PRN PRN Hypoglycemia Protocol Heparin Sodium/Dextrose 25,000 units in 250 mls @ 17 mls/hr 06/17/25 21:00 06/22/25 05:32 Heparin Sodium/D5w 100 Units/Ml IV CONT 1,700 units/hr .[id number] ALYSSA 17 mls/hr Protocol Titration 1,700 UNITS/HR Insulin Aspart 4 - 8 units 06/17/25 08:00 06/22/25 08:14 Insulin Aspart (*Bkc) 100 Units/Ml SUB-Q 5 units TIDWM ALYSSA Administration Protocol Insulin Glargine 15 units 06/17/25 09:00 06/22/25 08:13 Insulin Glargine (*Bkc) 100 Units/Ml SUB-Q 15 units QAM ALYSSA Administration Metoprolol Succinate 25 mg 06/17/25 09:00 06/22/25 08:13 Metoprolol Succinate Ext Rel 25 Mg Tabcr PO 25 mg DAILY ALYSSA Administration Miconazole Nitrate 1 applic 06/17/25 09:00 06/22/25 08:12 Miconazole Nitrate 2% Cream 30 Gm Tube TOPICAL 1 applic Q12HR ALYSSA Administration Midodrine 5 mg 06/20/25 17:00 06/22/25 08:12 Midodrine Hcl 2.5 Mg Tablet PO 5 mg TID ALYSSA Administration Ondansetron HCl 4 mg 06/16/25 16:23 Ondansetron Inj 4 Mg/2 Ml Vial IV PUSH Q4H PRN Nausea Potassium Chloride 40 meq 06/20/25 09:45 06/21/25 09:10 Potassium Chloride 20 Meq Er Tablet PO 40 meq DAILY ALYSSA Administration Radiology Results: ITS Impressions Chest X-Ray 06/16/25 14:25 IMPRESSION: 1. Bilateral airspace opacities and pulmonary vascular congestion with cardiomegaly. Findings may represent CHF versus atypical multifocal pneumonia. Clinical correlation is recommended. Short interval follow-up chest radiograph is recommended after appropriate clinical therapy to document resolution/stability. 2. Small right pleural effusion. Labs Labs: Laboratory Results - last 24 hr 06/21/25 06/21/25 06/21/25 07:47 11:26 16:18 WBC RBC Hgb Hct MCV MCH MCHC RDW Plt Count MPV Immature Gran % (Auto) Neut % (Auto) Lymph % (Auto) Marion % (Auto) Eos % (Auto) Baso % (Auto) Lymph # (Auto) Marion # (Auto) Eos # (Auto) Baso # (Auto) Abs Immat Gran (auto) Absolute Neuts (auto) Absolute Nucleated RBC Nucleated RBC % APTT Sodium Potassium Chloride Carbon Dioxide Anion Gap BUN Creatinine Estim Creat Clear Calc Estimated GFR Glucose POC Capillary Glucose 270 H 357 H Calcium Magnesium Total Bilirubin AST ALT Alkaline Phosphatase Total Protein Albumin TSH (Reflex) 1.180 06/21/25 06/22/25 06/22/25 20:28 05:04 07:15 WBC 8.6 RBC 5.05 Hgb 15.0 Hct 46.7 MCV 92.5 MCH 29.7 MCHC 32.1 RDW 15.9 H Plt Count 207 MPV 11.4 H Immature Gran % (Auto) 0.6 H Neut % (Auto) 67.6 Lymph % (Auto) 20.0 Marion % (Auto) 8.3 Eos % (Auto) 3.0 Baso % (Auto) 0.5 Lymph # (Auto) 1.73 Marion # (Auto) 0.7 H Eos # (Auto) 0.3 Baso # (Auto) 0.0 Abs Immat Gran (auto) 0.05 H Absolute Neuts (auto) 5.8 Absolute Nucleated RBC 0.000 Nucleated RBC % 0.0 APTT 57.8 H Sodium 133 L Potassium 3.7 Chloride 91 L Carbon Dioxide 34 H Anion Gap 8 BUN 23 H Creatinine 1.04 Estim Creat Clear Calc 72 Estimated GFR > 60 Glucose 268 H POC Capillary Glucose 244 H 280 H Calcium 9.9 Magnesium 1.4 L Total Bilirubin 1.0 AST 22 ALT 19 Alkaline Phosphatase 98 Total Protein 6.9 Albumin 3.8 TSH (Reflex) Quality VTE Prophylaxis VTE prophylaxis: pharmacologic ordered
[2025-06-22 12:05] LABS: Partial Thromboplastin Time 71.4 Seconds (22.3-36.8)
[2025-06-22] MEDS: POTASSIUM CHLORIDE 20 MEQ ER TABLET 40 MEQ PO (12:05)
[2025-06-22] MEDS: HEPARIN SOD/D5W 100 UNITS/ML 25,000 UNITS/250 ML BAG 17 UNITS IV CONT (14:31)
[2025-06-22 18:40] LABS: Partial Thromboplastin Time 74.9 Seconds (22.3-36.8)
[2025-06-23] VITALS (23 sets, daily range): BP systolic 107–130; BP diastolic 52–96; PULSE 82–116; RESP 15–22; TEMP 36.3–36.8; O2SAT 95–100; BMI 35.1
[2025-06-23] MEDS: HEPARIN SOD/D5W 100 UNITS/ML 25,000 UNITS/250 ML BAG 17 UNITS IV CONT (03:58)
[2025-06-23 04:42] LABS: Partial Thromboplastin Time 93.9 Seconds (22.3-36.8)
[2025-06-23] MEDS: AMIODARONE HCL 200 MG TABLET 400 MG PO ×2 (08:11→16:49)
[2025-06-23] MEDS: METOPROLOL SUCCINATE EXT REL 25 MG TABCR PO (08:13)
[2025-06-23] MEDS: MIDODRINE HCL 2.5 MG TABLET 5 MG PO ×2 (08:13→16:48)
[2025-06-23] MEDS: ATORVASTATIN 10 MG TABLET PO (08:13)
[2025-06-23] MEDS: BENZONATATE 100 MG CAPSULE PO (08:14)
[2025-06-23] MEDS: ASCORBIC ACID 125 MG TABLET BY MOUTH (08:14)
[2025-06-23] MEDS: POTASSIUM CHLORIDE 20 MEQ ER TABLET 40 MEQ PO (08:14)
[2025-06-23] MEDS: MICONAZOLE NITRATE 2% CREAM 30 GM TUBE 1 APPLIC TOPICAL (08:20)
[2025-06-23] MEDS: INSULIN ASPART (*BKC) 100 UNITS/ML SUB-Q ×5 (08:34→21:15)
[2025-06-23] MEDS: FUROSEMIDE INJ 40 MG/4 ML VIAL IV PUSH ×3 (08:53→17:21)
--- NOTE | 2025-06-23 09:33 | P.PNCA_ITS ---
Progress Note: A&P Assessment and Plan (1) Cardiomyopathy: Code(s): I42.9 - Cardiomyopathy, unspecified Status: Acute Assessment and Plan: New diagnosis severe cardiomyopathy. -continue metoprolol succinate 25 daily -add Entresto, spironolactone after he has diuresed more -eventually add jardiance -coronary angiogram when able to lay flat - tentatively tomorrow. -LifeVest prior to discharge (2) CHF (congestive heart failure): Qualifiers: Heart failure chronicity: acute Heart failure type: systolic Qualified Code(s): I50.21 - Acute systolic (congestive) heart failure Code(s): I50.9 - Heart failure, unspecified Status: Acute Assessment and Plan: Acute exacerbation of systolic heart failure. * Continue IV furosemide 40 mg IV t.i.d, will give 5mg metolazone x 1 today. * Strict intake and output * Daily weights * 1500cc fluid restriction * CHF counseling (3) Paroxysmal atrial fibrillation: Code(s): I48.0 - Paroxysmal atrial fibrillation Status: Chronic Assessment and Plan: He has paroxysmal atrial fibrillation on anticoagulation with Xarelto and rate controlled. * Continue metoprolol for rate control * Given his severe cardiomyopathy, I think that he would benefit from confucianism of sinus rhythm. 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 Subjective Date/time seen: 06/23/25 09:33 Interval history: Cardiology follow up visit No acute events overnight Denies chest pain Making urine Date of service 06/19/2025: He feels ok today. Diuresing well, but still has significant edema. No chest pain, palpitations. Date of service 06/20/2025: No acute events overnight. Feeling ok. Still has orthopnea, unable to sleep in bed. Edema slowly improving. No palpitations. Date of service 06/21/2025-sitting on chair. He is very edematous. AFib with RVR. Blood pressure is soft. Date of service 06/22/2025: Resting comfortably on chair. Remains tachycardic with AFib. Remains edematous although patient feels it is improving. He does have edema up to the thighs. Date of service 06/23/2025: Review of Systems Review of Systems: All systems reviewed & are unremarkable except as noted in HPI and below Exam Const: General: comfortable, no acute distress, alert and awake Orientation/consciousness: patient oriented x3 HENMT: Head: normal to inspection Eyes: General: appearance normal, both eyes and all related structures Pup ils: Equal, round and reactive pupils present Neck: Neck: normal visual inspection and supple Carotids: normal carotid upstroke Other: Unable to assess for JVD given body habitus. Resp: Effort & Inspection: normal respiratory effort Auscultation: not clear to auscultation bilaterally and rales bilateral 1/[address] up Cardio: Rate: regular rate Rhythm: regular rhythm and abnormal rhythm irregularly irregular Heart sounds: S1 normal heart sound present, S2 normal heart sound present and no murmurs GI: Inspection: distended Auscultation: normal bowel sounds Skin: General skin exam: normal color Neuro: General: patient oriented x3 Cranial nerves: Yes Equal, round and reactive pupils present Extrem: General: abnormal to inspection, edema and pedal edema Other: 2+ bilateral pretibial and pedal edema. Erythema bilateral lower legs Psych: Appearance: grossly normal Mental Status: mental status grossly normal Objective Data Vital Signs Vital Signs: Vital Signs - 24 hr 06/22/25 09:50 06/22/25 10:00 06/22/25 12:00 Temperature 37.1 C Pulse Rate 116 H 94 Respiratory Rate 24 H Blood Pressure 129/65 Pulse Oximetry 97 Oxygen Delivery Room Air Fraction of Inspired Oxygen 06/22/25 12:00 06/22/25 12:00 06/22/25 14:00 Temperature Pulse Rate 106 H 102 H Respiratory Rate Blood Pressure Pulse Oximetry Oxygen Delivery Room Air Fraction of Inspired Oxygen 06/22/25 16:00 06/22/25 16:00 06/22/25 16:00 Temperature 36.8 C Pulse Rate 99 104 H Respiratory Rate 16 Blood Pressure 115/56 L Pulse Oximetry 93 Oxygen Delivery Room Air Fraction of Inspired Oxygen 06/22/25 16:19 06/22/25 18:00 06/22/25 19:46 Temperature 36.8 C Pulse Rate 101 H 99 107 H Respiratory Rate 18 Blood Pressure 105/67 Pulse Oximetry 98 Oxygen Delivery Fraction of Inspired Oxygen 06/22/25 20:00 06/22/25 20:00 06/22/25 21:07 Temperature Pulse Rate 104 H 104 H Respiratory Rate 18 Blood Pressure Pulse Oximetry 98 98 Oxygen Delivery Room Air Room Air Fraction of Inspired Oxygen 21 06/22/25 21:43 06/22/25 23:42 06/23/25 00:00 Temperature 36.7 C Pulse Rate 99 99 116 H Respiratory Rate 18 18 Blood Pressure 114/62 Pulse Oximetry 95 95 Oxygen Delivery Room Air Fraction of Inspired Oxygen 21 06/23/25 00:00 06/23/25 02:00 06/23/25 03:51 Temperature 36.8 C Pulse Rate 116 H 108 H 110 H Respiratory Rate 18 Blood Pressure 112/65 Pulse Oximetry 96 Oxygen Delivery Fraction of Inspired Oxygen 06/23/25 04:00 06/23/25 04:00 06/23/25 06:00 Temperature Pulse Rate 110 H 110 H 112 H Respiratory Rate 18 Blood Pressure Pulse Oximetry 96 Oxygen Delivery Room Air Fraction of Inspired Oxygen 21 06/23/25 08:00 06/23/25 08:11 06/23/25 08:13 Temperature 36.6 C Pulse Rate 115 H 115 H 115 H Respiratory Rate 22 H Blood Pressure 130/52 L Pulse Oximetry 98 Oxygen Delivery Fraction of Inspired Oxygen Intake/Output Intake/Output: Intake & Output 06/20/25 06/21/25 06/22/25 06/23/25 23:59 23:59 23:59 23:59 Intake Total 1438.2 1390.9 1392.5 169.4 Output Total 3900 3950 2600 300 Balance -2461.8 -2559.1 -1207.5 -130.6 Meds/Results Medications: Active Medications Generic Name Dose Route Start Last Admin Trade Name Freq PRN Reason Stop Dose Admin Albuterol 2 puff 06/16/25 22:11 Albuterol Sulfate (*Sp) Aerosol 1 Puff INHALATION Q4H PRN shortness of breath or wheezing Allopurinol 300 mg 06/17/25 08:00 06/23/25 08:13 Allopurinol 300 Mg Tablet PO 300 mg DAILY@0800 ALYSSA Administration Amiodarone HCl 400 mg 06/22/25 09:00 06/23/25 08:11 Amiodarone Hcl 200 Mg Tablet PO 400 mg BID ALYSSA Administration Ascorbic Acid 125 mg 06/17/25 09:00 06/23/25 08:14 Ascorbic Acid 125 Mg Tablet BY MOUTH 125 mg DAILY ALYSSA Administration Atorvastatin Calcium 10 mg 06/17/25 09:00 06/23/25 08:13 Atorvastatin 10 Mg Tablet PO 10 mg DAILY ALYSSA Administration Benzonatate 100 mg 06/16/25 22:11 06/23/25 08:14 Benzonatate 100 Mg Capsule PO 100 mg TID PRN Administration cough Dextrose 12.5 gm 06/16/25 22:14 Dextrose 50% 25 Gm/50 Ml Syringe IV PUSH PRN PRN Hypoglycemia Protocol Furosemide 40 mg 06/21/25 09:00 06/23/25 08:53 Furosemide Inj 40 Mg/4 Ml Vial IV PUSH 40 mg TID ALYSSA Administration Glucagon 1 mg 06/16/25 22:14 Glucagon For Inj 1 Mg Vial IM PRN PRN Hypoglycemia Protocol Glucose 15 gm 06/16/25 22:14 Glucose Oral Gel 15 Gm Of Glucse In 37.5 Gm Tube PO PRN PRN Hypoglycemia Protocol Heparin Sodium (Porcine) 7,500 units 06/17/25 21:00 Heparin Sodium 5,000 Units/Ml Vial IV PUSH PRN PRN aPTT less than 55 seconds Heparin Sodium (Porcine) 4,000 units 06/17/25 21:00 06/22/25 05:32 Heparin Sodium 5,000 Units/Ml Vial IV PUSH 4,000 units PRN PRN Administration aPTT 55 - 70 seconds Dextrose 1,000 mls @ 100 mls/hr 06/16/25 22:14 Dextrose 5% 1,000 Ml IVPB PRN PRN Hypoglycemia Protocol Heparin Sodium/Dextrose 25,000 units in 250 mls @ 17 mls/hr 06/17/25 21:00 06/23/25 04:45 Heparin Sodium/D5w 100 Units/Ml IV CONT 1,700 units/hr .[id number] ALYSSA 17 mls/hr Protocol Titration 1,700 UNITS/HR Insulin Aspart 4 - 8 units 06/17/25 08:00 06/23/25 08:34 Insulin Aspart (*Bkc) 100 Units/Ml SUB-Q 6 units TIDWM ALYSSA Administration Protocol Insulin Aspart 2 - 4 units 06/22/25 21:00 06/22/25 20:55 Insulin Aspart (*Bkc) 100 Units/Ml SUB-Q 2 units HS ALYSSA Administration Protocol Insulin Glargine 15 units 06/22/25 21:00 06/22/25 20:56 Insulin Glargine (*Bkc) 100 Units/Ml SUB-Q 15 units HS ALYSSA Administration Metoprolol Succinate 25 mg 06/17/25 09:00 06/23/25 08:13 Metoprolol Succinate Ext Rel 25 Mg Tabcr PO 25 mg DAILY ALYSSA Administration Miconazole Nitrate 1 applic 06/17/25 09:00 06/23/25 08:20 Miconazole Nitrate 2% Cream 30 Gm Tube TOPICAL 1 applic Q12HR ALYSSA Administration Midodrine 5 mg 06/20/25 17:00 06/23/25 08:13 Midodrine Hcl 2.5 Mg Tablet PO 5 mg TID ALYSSA Administration Ondansetron HCl 4 mg 06/16/25 16:23 Ondansetron Inj 4 Mg/2 Ml Vial IV PUSH Q4H PRN Nausea Potassium Chloride 40 meq 06/20/25 09:45 06/23/25 08:14 Potassium Chloride 20 Meq Er Tablet PO 40 meq DAILY ALYSSA Administration Radiology Results: ITS Impressions Chest X-Ray 06/16/25 14:25 IMPRESSION: 1. Bilateral airspace opacities and pulmonary vascular congestion with cardiomegaly. Findings may represent CHF versus atypical multifocal pneumonia. Clinical correlation is recommended. Short interval follow-up chest radiograph is recommended after appropriate clinical therapy to document resolution/stability. 2. Small right pleural effusion. Labs Labs: Laboratory Results - last 24 hr 06/22/25 06/22/25 06/22/25 11:26 11:34 15:52 APTT 71.4 H POC Capillary Glucose 384 H 393 H 06/22/25 06/22/25 06/23/25 18:23 20:14 03:44 APTT 74.9 H 93.9 H POC Capillary Glucose 274 H 06/23/25 07:14 APTT POC Capillary Glucose 333 H Quality VTE Prophylaxis VTE prophylaxis: pharmacologic ordered
[2025-06-23 10:15] LABS: Anion Gap 9 mmol/L (4-12); Blood Urea Nitrogen 24 mg/dL (9-20); Calcium 9.6 mg/dL (8.4-10.2); Carbon Dioxide 32 mmol/L (22-30); Chloride 89 mmol/L (98-107); Estimated CRCL calculation 74 ml/min; Estimated Glomerular Filt Rate > 60; Glucose 268 mg/dL (65-110); Potassium 3.7 mmol/L (3.4-5.0); Sodium 130 mmol/L (137-145)
--- NOTE | 2025-06-23 11:53 | PCOTNOTE ---
Patient eating lunch at this time.
--- NOTE | 2025-06-23 13:02 | P.PNIM_ITS ---
Progress Note: A&P Assessment and Plan (1) CHF (congestive heart failure): Qualifiers: Heart failure chronicity: acute Heart failure type: systolic Qualified Code(s): I50.21 - Acute systolic (congestive) heart failure Code(s): I50.9 - Heart failure, unspecified Status: Acute Assessment and Plan: - acute exacerbation of CHF - BNP 3890 - most recent echo (06/13/25): systolic function was severely globally reduced, EF of 20-25%, diastolic function abnormal, AFib, and mild valvular disease with no pulmonary hypertension - monitor I&Os and daily weights - trend renal function on Metoprolol 25mg and Midodrine for pressure support Continue Lasix per cardiology For cardiac cath pending adequate diuresis cardiology following (2) Diabetes mellitus: Qualifiers: Diabetes mellitus type: type 2 Diabetes mellitus mcfp insulin use: without technician terminal and repeater use Diabetes mellitus complication status: without complication Qualified Code(s): E11.9 - Type 2 diabetes mellitus without complications Code(s): E11.9 - Type 2 diabetes mellitus without complications Status: Chronic Assessment and Plan: - hypoglycemia protocol - POC blood glucose ACHS - home medication: Continue Lantus 15 units QAM. Hold glipizide. - Adjust lantus to 18 u and added premeal insulin 5 u, conitneu SSI with accucheks - correct regimen ordered - high dose TIDWM, based off BMI - A1C 8.5% on 05/20/2025 (3) Paroxysmal atrial fibrillation: Code(s): I48.0 - Paroxysmal atrial fibrillation Status: Chronic Assessment and Plan: - continue home medications: Metoprolol 25 mg ER and Xarelto. (4) Hypertension: Qualifiers: Hypertension type: essential hypertension Qualified Code(s): I10 - Essential (primary) hypertension Code(s): I10 - Essential (primary) hypertension Status: Chronic Assessment and Plan: - chronic, currently 100/80 - continue home medications: Losartan, Amlodipine - monitor Plan Patient additionally has erythematous rash to bilateral lower extremities that appears consistent with cutaneous candidiasis. Ketoconazole topical ordered. Diet: Heart healthy DVT Prophylaxis: Xarelto Code Status: Full code Subjective Date/time seen: 06/23/25 13:02 Interval history: Comfortable at bedside For cardiac cath and cardioversion tomorrow Review of Systems Review of Systems: All systems reviewed & are unremarkable except as noted in HPI and below Exam Const: General: comfortable and no acute distress Other: , male, nontoxic appearance HENMT: Face/Nose/Sinus: Normal nares present Mouth: Yes moist mucous membranes Eyes: General: appearance normal, both eyes and all related structures Sclera: sclerae normal Pupils: Equal, round and reactive pupils present EOM: EOMs intact bilaterally Resp: Effort & Inspection: normal respiratory effort Auscultation: clear to auscultation bilaterally Cardio: Rate: tachycardic Rhythm: abnormal rhythm Other: Normal murmur or rub. GI: Other: Abdomen tight and rounded but nontender. Normoactive bowel sounds in all quadrants. Skin: General skin exam: normal color Wounds: no wounds Other: Erythematous rash to bilateral lower extremities with no open wound is and mild scaling. Neuro: Cranial nerves: Yes Equal, round and reactive pupils present Speech: normal speech Motor exam (neuro): 5/5 motor strength present throughout Sensory Exam: normal sensation Other: A&O x4 Extrem: Other: 2 to 3+ pitting edema to bilateral lower extremity eyes starting at thigh extending to ankles, symmetric. Very tight on exam. Psych: Mental Status: mental status grossly normal Affect: normal affect Other: Good insight and judgment, very pleasant Objective Data Vital Signs Vital Signs: Vital Signs - 24 hr 06/22/25 14:00 06/22/25 16:00 06/22/25 16:00 Temperature 98.2 F Pulse Rate 102 H 99 Respiratory Rate 16 Blood Pressure 115/56 L Pulse Oximetry 93 Oxygen Delivery Room Air Fraction of Inspired Oxygen 06/22/25 16:00 06/22/25 16:19 06/22/25 18:00 Temperature Pulse Rate 104 H 101 H 99 Respiratory Rate Blood Pressure Pulse Oximetry Oxygen Delivery Fraction of Inspired Oxygen 06/22/25 19:46 06/22/25 20:00 06/22/25 20:00 Temperature 98.2 F Pulse Rate 107 H 104 H 104 H Respiratory Rate 18 18 Blood Pressure 105/67 Pulse Oximetry 98 98 Oxygen Delivery Room Air Fraction of Inspired Oxygen 21 06/22/25 21:07 06/22/25 21:43 06/22/25 23:42 Temperature 98.1 F Pulse Rate 99 99 Respiratory Rate 18 Blood Pressure 114/62 Pulse Oximetry 98 95 Oxygen Delivery Room Air Fraction of Inspired Oxygen 06/23/25 00:00 06/23/25 00:00 06/23/25 02:00 Temperature Pulse Rate 116 H 116 H 108 H Respiratory Rate 18 Blood Pressure Pulse Oximetry 95 Oxygen Delivery Room Air Fraction of Inspired Oxygen 21 06/23/25 03:51 06/23/25 04:00 06/23/25 04:00 Temperature 98.3 F Pulse Rate 110 H 110 H 110 H Respiratory Rate 18 18 Blood Pressure 112/65 Pulse Oximetry 96 96 Oxygen Delivery Room Air Fraction of Inspired Oxygen 21 06/23/25 06:00 06/23/25 08:00 06/23/25 08:00 Temperature 97.8 F Pulse Rate 112 H 115 H Respiratory Rate 22 H Blood Pressure 130/52 L Pulse Oximetry 98 Oxygen Delivery Room Air Fraction of Inspired Oxygen 06/23/25 08:00 06/23/25 08:11 06/23/25 08:13 Temperature Pulse Rate 113 H 115 H 115 H Respiratory Rate Blood Pressure Pulse Oximetry Oxygen Delivery Fraction of Inspired Oxygen 06/23/25 10:00 06/23/25 11:50 06/23/25 12:00 Temperature 97.4 F L Pulse Rate 110 H 100 Respiratory Rate 20 Blood Pressure 112/63 Pulse Oximetry 97 Oxygen Delivery Room Air Fraction of Inspired Oxygen Intake/Output Intake/Output: Intake & Output 06/20/25 06/21/25 06/22/25 06/23/25 23:59 23:59 23:59 23:59 Intake Total 1438.2 1390.9 1392.5 889.4 Output Total 3900 3950 2600 1000 Balance -2461.8 -2559.1 -1207.5 -110.6 Meds/Results Medications: Active Medications Generic Name Dose Route Start Last Admin Trade Name Freq PRN Reason Stop Dose Admin Albuterol 2 puff 06/16/25 22:11 Albuterol Sulfate (*Sp) Aerosol 1 Puff INHALATION Q4H PRN shortness of breath or wheezing Allopurinol 300 mg 06/17/25 08:00 06/23/25 08:13 Allopurinol 300 Mg Tablet PO 300 mg DAILY@0800 ALYSSA Administration Amiodarone HCl 400 mg 06/22/25 09:00 06/23/25 08:11 Amiodarone Hcl 200 Mg Tablet PO 400 mg BID ALYSSA Administration Ascorbic Acid 125 mg 06/17/25 09:00 06/23/25 08:14 Ascorbic Acid 125 Mg Tablet BY MOUTH 125 mg DAILY ALYSSA Administration Atorvastatin Calcium 10 mg 06/17/25 09:00 06/23/25 08:13 Atorvastatin 10 Mg Tablet PO 10 mg DAILY ALYSSA Administration Benzonatate 100 mg 06/16/25 22:11 06/23/25 08:14 Benzonatate 100 Mg Capsule PO 100 mg TID PRN Administration cough Dextrose 12.5 gm 06/16/25 22:14 Dextrose 50% 25 Gm/50 Ml Syringe IV PUSH PRN PRN Hypoglycemia Protocol Furosemide 40 mg 06/21/25 09:00 06/23/25 08:53 Furosemide Inj 40 Mg/4 Ml Vial IV PUSH 40 mg TID ALYSSA Administration Glucagon 1 mg 06/16/25 22:14 Glucagon For Inj 1 Mg Vial IM PRN PRN Hypoglycemia Protocol Glucose 15 gm 06/16/25 22:14 Glucose Oral Gel 15 Gm Of Glucse In 37.5 Gm Tube PO PRN PRN Hypoglycemia Protocol Heparin Sodium (Porcine) 7,500 units 06/17/25 21:00 Heparin Sodium 5,000 Units/Ml Vial IV PUSH PRN PRN aPTT less than 55 seconds Heparin Sodium (Porcine) 4,000 units 06/17/25 21:00 06/22/25 05:32 Heparin Sodium 5,000 Units/Ml Vial IV PUSH 4,000 units PRN PRN Administration aPTT 55 - 70 seconds Dextrose 1,000 mls @ 100 mls/hr 06/16/25 22:14 Dextrose 5% 1,000 Ml IVPB PRN PRN Hypoglycemia Protocol Heparin Sodium/Dextrose 25,000 units in 250 mls @ 17 mls/hr 06/17/25 21:00 06/23/25 04:45 Heparin Sodium/D5w 100 Units/Ml IV CONT 1,700 units/hr .[id number] ALYSSA 17 mls/hr Protocol Titration 1,700 UNITS/HR Insulin Aspart 4 - 8 units 06/17/25 08:00 06/23/25 12:10 Insulin Aspart (*Bkc) 100 Units/Ml SUB-Q 6 units TIDWM [facility] Administration Protocol Insulin Aspart 2 - 4 units 06/22/25 21:00 06/22/25 20:55 Insulin Aspart (*Bkc) 100 Units/Ml SUB-Q 2 units HS [facility] Administration Protocol Insulin Glargine 18 units 06/23/25 21:00 Insulin Glargine (*Bkc) 100 Units/Ml SUB-Q HS ALYSSA Metoprolol Succinate 25 mg 06/17/25 09:00 06/23/25 08:13 Metoprolol Succinate Ext Rel 25 Mg Tabcr PO 25 mg DAILY ALYSSA Administration Miconazole Nitrate 1 applic 06/17/25 09:00 06/23/25 08:20 Miconazole Nitrate 2% Cream 30 Gm Tube TOPICAL 1 applic Q12HR ALYSSA Administration Midodrine 5 mg 06/23/25 17:00 Midodrine Hcl 2.5 Mg Tablet PO BID LAYSSA Ondansetron HCl 4 mg 06/16/25 16:23 Ondansetron Inj 4 Mg/2 Ml Vial IV PUSH Q4H PRN Nausea Potassium Chloride 40 meq 06/20/25 09:45 06/23/25 08:14 Potassium Chloride 20 Meq Er Tablet PO 40 meq DAILY ALYSSA Administration Radiology Results: ITS Impressions Chest X-Ray 06/23/25 10:37 IMPRESSION: 1: NO ACUTE CARDIOPULMONARY DISEASE. Labs Labs: Laboratory Results - last 24 hr 06/22/25 06/22/25 06/22/25 15:52 18:23 20:14 APTT 74.9 H Sodium Potassium Chloride Carbon Dioxide Anion Gap BUN Creatinine Estim Creat Clear Calc Estimated GFR Glucose POC Capillary Glucose 393 H 274 H Calcium 06/23/25 06/23/25 06/23/25 03:44 07:14 11:42 APTT 93.9 H Sodium 130 L Potassium 3.7 Chloride 89 L Carbon Dioxide 32 H Anion Gap 9 BUN 24 H Creatinine 1.01 Estim Creat Clear Calc 74 Estimated GFR > 60 Glucose 268 H POC Capillary Glucose 333 H 313 H Calcium 9.6 Quality VTE Prophylaxis VTE prophylaxis: pharmacologic ordered
--- NOTE | 2025-06-23 13:23 | PCNWS ---
Weekly nutritional screen. Patient is tolerating current diabetic diet with adequate intake 75-100%. No weight loss reported. Met with simulation educator. No nutritional recommendations at this time.
--- NOTE | 2025-06-23 17:04 | PC.NURSE ---
On 06/23/25, the student, [ ], provided care and completed [place] documentation on this patient. I have reviewed the student's documentation and agree with the findings. Haresh
[2025-06-23] MEDS: INSULIN GLARGINE (*BKC) 100 UNITS/ML 18 UNITS SUB-Q (21:13)
[2025-06-24] VITALS (23 sets, daily range): BP systolic 103–132; BP diastolic 60–100; PULSE 70–116; RESP 14–21; TEMP 36.4–36.7; O2SAT 95–100
[2025-06-24 05:50] LABS: Anion Gap 10 mmol/L (4-12); Blood Urea Nitrogen 28 mg/dL (9-20); Calcium 9.8 mg/dL (8.4-10.2); Carbon Dioxide 35 mmol/L (22-30); Chloride 86 mmol/L (98-107); Estimated CRCL calculation 61 ml/min; Estimated Glomerular Filt Rate 57; Glucose 275 mg/dL (65-110); Potassium 3.8 mmol/L (3.4-5.0); Sodium 131 mmol/L (137-145)
[2025-06-24 05:51] LABS: Partial Thromboplastin Time 110.9 Seconds (22.3-36.8)
[2025-06-24] MEDS: POTASSIUM CHLORIDE 20 MEQ ER TABLET 40 MEQ PO (08:56)
[2025-06-24] MEDS: AMIODARONE HCL 200 MG TABLET 400 MG PO ×2 (08:57→17:16)
[2025-06-24] MEDS: MIDODRINE HCL 2.5 MG TABLET 5 MG PO ×2 (08:57→17:17)
[2025-06-24] MEDS: METOPROLOL SUCCINATE EXT REL 25 MG TABCR PO (08:58)
[2025-06-24] MEDS: ATORVASTATIN 10 MG TABLET PO (08:59)
[2025-06-24] MEDS: FUROSEMIDE INJ 40 MG/4 ML VIAL IV PUSH ×3 (09:00→17:19)
--- NOTE | 2025-06-24 09:00 | PC.NURSE ---
Dr Moya wanted a recheck on POC glucose due to patients NPO status. Notified MD of recheck results, gave order to hold insulin at this time. Order read back and verified.
[2025-06-24] MEDS: ASCORBIC ACID 125 MG TABLET BY MOUTH (09:01)
[2025-06-24] MEDS: HEPARIN SOD/D5W 100 UNITS/ML 25,000 UNITS/250 ML BAG 17 UNITS IV CONT (09:30)
[2025-06-24] MEDS: MICONAZOLE NITRATE 2% CREAM 30 GM TUBE 1 APPLIC TOPICAL ×2 (10:43→21:05)
--- NOTE | 2025-06-24 12:00 | ECG_ITS ---
Test Date: 2025-06-24 15:32:41 Measurements Intervals [place] Rate: 100 P: 0 [place]: 0 QRS: 143 QRSD: 153 T: 1 QT: 420 QTc: 544 Interpretive Statements ATRIAL FIBRILLATION WITH RAPID VENTRICULAR RESPONSE WITH FREQUENT VENTRICULAR PREMATURE COMPLEXES RIGHT BUNDLE BRANCH BLOCK LEFT POSTERIOR FASCICULAR BLOCK ABNORMAL ECG Compared to ECG 06/16/2025 19:59:54 HEART RATE HAS DECREASED Electronically Signed On 06-24-2025 13:19:16 CDT by Bong Edge D.O.
--- NOTE | 2025-06-24 13:00 | ECG_ITS ---
Test Date: 2025-06-24 16:02:22 Measurements Intervals [place] Rate: 88 P: 0 [place]: 0 QRS: 112 QRSD: 148 T: 25 QT: 407 QTc: 493 Interpretive Statements SINUS RHYTHM WITH ATRIAL AND VENTRICULAR PREMATURE COMPLEXES VENTRICULAR PREMATURE COMPLEXES RIGHT BUNDLE BRANCH BLOCK LEFT POSTERIOR FASCICULAR BLOCK BASELINE ARTIFACT- V2 ABNORMAL ECG Compared to ECG 06/24/2025 15:32:41 ATRIAL FIBRILLATION NO LONGER PRESENT Electronically Signed On 06-24-2025 14:01:29 CDT by Bong Edge D.O.
--- NOTE | 2025-06-24 13:17 | WPDANESEPPF ---
Anes - Initial Pre Proc Eval Procedure: Operation Date: 06/24/25 13:30 Proposed Procedures p Electrical Cardioversion - Thomas Francois MD Date/Time: 06/24/25 13:17 Surgeon: Jeancarlos Cooley MD Pre Op Diagnosis: New Onset Afib/Cardiomyopathy Patient Data Age: 69 Gender: M Height: 1.78 m Weight: 111.1 kg Last Vital Signs Temp 36.4 C L 06/24/25 11:50 Pulse 74 06/24/25 12:00 Resp 20 06/24/25 11:50 BP 132/91 H 06/24/25 11:50 Pulse Ox 99 06/24/25 11:50 O2 Del Method Room Air 06/24/25 12:00 FiO2 21 06/23/25 20:35 Allergies Allergy/AdvReac Type Severity Reaction Status Date / Time No Known Allergies Allergy Verified 06/16/25 18:48 Home Medications ?Medication ?Instructions ?Recorded ?Confirmed ?Type glucosamine-chondroitin 500 mg-400 1 tablet PO BID 01/02/20 06/16/25 History mg tablet ascorbic acid (vitamin C) 100 mg 100 mg PO DAILY 08/19/23 06/16/25 History tablet benzonatate 100 mg capsule 100 mg PO TID PRN cough #30 caps 08/23/23 06/16/25 Rx blood sugar diagnostic (Accu-Chek #100 ea 08/23/23 06/16/25 Rx Guide test strips) blood-glucose meter (Accu-Chek #1 ea 08/23/23 06/16/25 Rx Guide Glucose Meter) lancets (Accu-Chek Softclix #100 ea 08/25/23 06/16/25 Rx Lancets) allopurinol 300 mg tablet 300 mg PO DAILY #90 tabs 10/09/24 06/16/25 Rx glipizide 10 mg tablet, extended 10 mg PO BID #180 tabs 12/17/24 06/16/25 Rx release 24 hr potassium chloride 10 mEq 10 meq PO DAILY #90 caps 12/17/24 06/16/25 Rx capsule,extended release amlodipine 10 mg tablet 10 mg PO DAILY #90 tabs 01/06/25 06/16/25 Rx atorvastatin 10 mg tablet 10 mg PO DAILY #90 tabs 01/06/25 06/16/25 Rx losartan 100 mg tablet 100 mg PO DAILY #90 tabs 03/10/25 06/16/25 Rx blood-glucose sensor (FreeStyle #2 ea 05/20/25 06/16/25 Rx Radha 3 Plus Sensor device) blood-glucose,photographer,cont #1 ea 05/20/25 06/16/25 Rx (FreeStyle Radha 3 [place]) pen needle, diabetic 33 gauge x #100 ea 05/20/25 06/16/25 Rx 16 metoprolol succinate 25 mg 25 mg PO DAILY #30 tabs 05/21/25 06/16/25 Rx tablet,extended release 24 hr rivaroxaban 20 mg tablet (Xarelto) 20 mg PO DAILY #30 tabs 05/22/25 06/16/25 Rx insulin glargine 100 unit/mL (3 15 unit (0.15 mL) subcut QAM #15 mL 05/30/25 06/16/25 Rx mL) subcutaneous pen (Lantus Solostar U-100 Insulin) albuterol sulfate 90 mcg/actuation 1 puff inhalation Q4H PRN 06/04/25 06/16/25 Rx aerosol inhaler (Ventolin HFA) shortness of breath or wheezing #8.5 grams furosemide 40 mg tablet (Lasix) 40 mg PO BID #60 tabs 06/04/25 06/16/25 Rx Laboratory Tests 06/23/25 06/23/25 06/24/25 16:05 19:55 05:14 APTT 110.9 H Seconds (22.3-36.8) Sodium 131 L mmol/L (137-145) Potassium 3.8 mmol/L (3.4-5.0) Chloride 86 L mmol/L (98-107) Carbon Dioxide 35 H mmol/L (22-30) Anion Gap 10 mmol/L (4-12) BUN 28 H mg/dL (9-20) Creatinine 1.24 mg/dL (0.7-1.3) Estim Creat Clear Calc 61 ml/min Estimated GFR 57 L (59 - ) Glucose 275 H mg/dL (65-110) POC Capillary Glucose 314 H mg/dl 342 H mg/dl (65-105) (65-105) Calcium 9.8 mg/dL (8.4-10.2) 06/24/25 06/24/25 06/24/25 07:45 08:56 11:16 APTT Sodium Potassium Chloride Carbon Dioxide Anion Gap BUN Creatinine Estim Creat Clear Calc Estimated GFR Glucose POC Capillary Glucose 315 H mg/dl 294 H mg/dl 314 H mg/dl (65-105) (65-105) (65-105) Calcium Patient hx anesthesia problems: none Family hx anesthesia problems: none Results Review: All pre-operative results and documents have been reviewed as part of the pre-operative evaluation. [facility], [facility] Past Medical History Medical History CVA (cerebral vascular accident) 2017 Basal cell carcinoma of right forearm Paroxysmal atrial fibrillation Coronary artery disease Hyperlipidemia CHF (congestive heart failure) Rhabdomyolysis Ex-smoker Chronic cough Colon cancer screening declined Controlled gout Hypertension Diabetes mellitus Surgical History Surgical History History of appendectomy Family History Family History Mother Diabetes mellitus Father Family history of cardiovascular disease Acute myocardial infarction Hypertension Grandparent Family history of cardiovascular disease Social History Social History Smoking packs per day: 3 Smoking cigarettes per day: 60.0 Years smoked: 32 Smoking pack-years: 96.00 Smoking status: Never smoker Tobacco type: cigarettes Second hand tobacco smoke exposure: Yes Smoking end date: 10/30/94 Alcohol intake: never Drinks per week: 20 Substance use: never Substance use type: does not use Last use: has not drank in one year Lack of Transportation: No Lack of Food: Never True Current Housing: I Have Housing Concerned About Future Housing: No Difficulty Paying Gas/Electric Bills: No Difficulty Paying for Meds: No Currently Unemployed: No Education: Grade School Difficulty w/ Childcare or Family Care: No Living arrangements: with family Occupation/Education: retired Gender identity (if verbalized by the patient): Male Spiritual care concerns: No Agree to blood products: Yes Anes - Eval Final PreProcedure Day of Procedure 06/24/25 13:17 Patient weight: obese Heart: irregular rhythm Lungs: decreased breath sounds Airway: Mallampati scale class III Neurological: alert and oriented Last oral intake: >/= 8 hours ASA classification: IV Emergent: no Anesthetic plan: proceed Anesthesia type and monitoring: general GIVS and standard monitoring Results Review: All pre-operative results and documents have been reviewed as part of the pre-operative evaluation. Informed Consent: The patient's anesthetic plan and its attendant risks and benefits were discussed with the patient/family/POA. Questions were solicited and answers provided to the satisfaction of the patient/family/POA.
--- NOTE | 2025-06-24 13:48 | P.PCNCC_ITS ---
Cardiac Cath Procedure Note Date of procedure:: 06/24/25 Performing physician:: Thomas Francois MD Indication:: Atrial fibrillation Congestive heart failure Brief clinical history:: This is a 69-year-old man presenting with atrial fibrillation as well as congestive heart failure. Because of low ejection fraction and persistent heart failure an attempt is being made restore sinus rhythm electrically. He has been receiving oral loading of amiodarone Procedure Procedure performed:: DC cardioversion Sedation/Medication given:: Sedation per the Anesthesia Service Estimated blood loss:: None Procedure note:: The patient was brought to the cardiac catheterization lab postanesthesia area where he was in the supine position in the postabsorptive state. Defibrillator patches were placed in AP position. Defibrillator was connected at 200 joules of put in a synchronized fashion. He was then sedated by the anesthesia service. Please see their separately dictated sedation note. He was then DC cardioverted with 200 joules in a synchronized fashion which restored sinus rhythm but with a lot of atrial and ventricular ectopic activity. Twelve lead ECG however clearly demonstrated cheondoism of sinus rhythm Findings:: As above Conclusion:: Successful uncomplicated DC cardioversion terminating atrial fib, restoring sinus rhythm using 200 joules x1 shock Thomas Francois MD [facility]
--- NOTE | 2025-06-24 15:22 | PM.IMPN ---
Progress Note: A&P Assessment and Plan (1) CHF (congestive heart failure): Qualifiers: Heart failure chronicity: acute Heart failure type: systolic Qualified Code(s): I50.21 - Acute systolic (congestive) heart failure Code(s): I50.9 - Heart failure, unspecified Status: Acute Assessment and Plan: - acute exacerbation of CHF - BNP 3890 - most recent echo (06/13/25): systolic function was severely globally reduced, EF of 20-25%, diastolic function abnormal, AFib, and mild valvular disease with no pulmonary hypertension - monitor I&Os and daily weights - trend renal function on Metoprolol 25mg, and Midodrine for pressure support Continue Lasix per cardiology For cardiac cath today Cardiology to titrate in GDMT for heart failure cardiology following (2) Diabetes mellitus: Qualifiers: Diabetes mellitus type: type 2 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 Hold glipizide. - Adjust lantus to 18 u and added premeal insulin 5 u, continue SSI with accucheks - correct regimen ordered - high dose TIDWM, based off BMI - A1C 8.5% on 05/20/2025 (3) Paroxysmal atrial fibrillation: Code(s): I48.0 - Paroxysmal atrial fibrillation Status: Chronic Assessment and Plan: Continue Amiodarone 400mg bid, Metoprolol 25mg and on heparin infusion Xarelto on hold (4) Hypertension: Qualifiers: Hypertension type: essential hypertension Qualified Code(s): I10 - Essential (primary) hypertension Code(s): I10 - Essential (primary) hypertension Status: Chronic Assessment and Plan: - chronic, currently 100/80 Continue cardiac meds as above, patient now on Entresto, no more Losaratan and Amldopine on hold due to soft blood pressure - monitor Plan Patient additionally has erythematous rash to bilateral lower extremities that appears consistent with cutaneous candidiasis. Ketoconazole topical ordered. Diet: Heart healthy DVT Prophylaxis: Xarelto Code Status: Full code Subjective Date/time seen: 06/24/25 15:22 Interval history: Comfortable at bedside For cardiac cath and cardioversion today Patient was seen prior to procedures Review of Systems Review of Systems: All systems reviewed & are unremarkable except as noted in HPI and below Exam Const: General: comfortable and no acute distress Other: , male, nontoxic appearance HENMT: Face/Nose/Sinus: Normal nares present Mouth: Yes moist mucous membranes Eyes: General: appearance normal, both eyes and all related structures Sclera: sclerae normal Pupils: Equal, round and reactive pupils present EOM: EOMs intact bilaterally Resp: Effort & Inspection: normal respiratory effort Auscultation: clear to auscultation bilaterally Cardio: Rate: tachycardic Rhythm: abnormal rhythm Other: Normal murmur or rub. GI: Other: Abdomen tight and rounded but nontender. Normoactive bowel sounds in all quadrants. Skin: General skin exam: normal color Wounds: no wounds Other: Erythematous rash to bilateral lower extremities with no open wound is and mild scaling. Neuro: Cranial nerves: Yes Equal, round and reactive pupils present Speech: normal speech Motor exam (neuro): 5/5 motor strength present throughout Sensory Exam: normal sensation Other: A&O x4 Extrem: Other: 2 to 3+ pitting edema to bilateral lower extremity eyes starting at thigh extending to ankles, symmetric. Very tight on exam. Psych: Mental Status: mental status grossly normal Affect: normal affect Other: Good insight and judgment, very pleasant Objective Data Vital Signs Vital Signs: Vital Signs - 24 hr 06/23/25 16:00 06/23/25 16:00 06/23/25 16:16 Temperature 97.6 F Pulse Rate 86 91 Respiratory Rate 20 Blood Pressure 119/96 H Pulse Oximetry 100 Oxygen Delivery Room Air Fraction of Inspired Oxygen 06/23/25 16:49 06/23/25 18:00 06/23/25 19:38 Temperature 98.1 F Pulse Rate 91 94 97 Respiratory Rate 15 Blood Pressure 107/57 L Pulse Oximetry 99 Oxygen Delivery Fraction of Inspired Oxygen 06/23/25 20:00 06/23/25 20:35 06/23/25 22:00 Temperature Pulse Rate 95 82 93 Respiratory Rate Blood Pressure Pulse Oximetry 95 Oxygen Delivery Room Air Fraction of Inspired Oxygen 21 06/23/25 23:44 06/23/25 23:53 06/24/25 00:46 Temperature 98.3 F Pulse Rate 101 H 99 99 Respiratory Rate 18 Blood Pressure 116/81 Pulse Oximetry 99 Oxygen Delivery Fraction of Inspired Oxygen 06/24/25 02:00 06/24/25 04:00 06/24/25 04:05 Temperature 98.0 F Pulse Rate 101 H 96 100 Respiratory Rate 18 Blood Pressure 109/67 Pulse Oximetry 100 Oxygen Delivery Fraction of Inspired Oxygen 06/24/25 06:00 06/24/25 07:57 06/24/25 08:00 Temperature 97.7 F Pulse Rate 116 H 106 H Respiratory Rate 20 Blood Pressure 106/86 Pulse Oximetry 95 Oxygen Delivery Room Air Fraction of Inspired Oxygen 06/24/25 08:00 06/24/25 08:00 06/24/25 08:57 Temperature Pulse Rate 110 H 105 H 112 H Respiratory Rate Blood Pressure Pulse Oximetry Oxygen Delivery Fraction of Inspired Oxygen 06/24/25 08:58 06/24/25 10:00 06/24/25 11:50 Temperature 97.5 F L Pulse Rate 112 H 91 108 H Respiratory Rate 20 Blood Pressure 132/91 H Pulse Oximetry 99 Oxygen Delivery Fraction of Inspired Oxygen 06/24/25 12:00 06/24/25 12:00 06/24/25 13:45 Temperature Pulse Rate 74 76 Respiratory Rate 18 Blood Pressure 120/80 Pulse Oximetry 100 Oxygen Delivery Room Air Room Air Fraction of Inspired Oxygen 06/24/25 14:00 06/24/25 14:15 Temperature Pulse Rate 70 79 Respiratory Rate 14 21 H Blood Pressure 119/100 H 103/65 Pulse Oximetry 97 98 Oxygen Delivery Room Air Room Air Fraction of Inspired Oxygen Intake/Output Intake/Output: Intake & Output 06/21/25 06/22/25 06/23/25 06/24/25 23:59 23:59 23:59 23:59 Intake Total 1390.9 1392.5 1616.1 200 Output Total 3950 2600 2600 1400 Balance -2559.1 -1207.5 -983.9 -1200 Meds/Results Medications: Active Medications Generic Name Dose Route Start Last Admin Trade Name Freq PRN Reason Stop Dose Admin Albuterol 2 puff 06/16/25 22:11 Albuterol Sulfate (*Sp) Aerosol 1 Puff INHALATION Q4H PRN shortness of breath or wheezing Allopurinol 300 mg 06/17/25 08:00 06/24/25 08:58 Allopurinol 300 Mg Tablet PO 300 mg DAILY@0800 ALYSSA Administration Amiodarone HCl 400 mg 06/22/25 09:00 06/24/25 08:57 Amiodarone Hcl 200 Mg Tablet PO 400 mg BID ALYSSA Administration Ascorbic Acid 125 mg 06/17/25 09:00 06/24/25 09:01 Ascorbic Acid 125 Mg Tablet BY MOUTH 125 mg DAILY ALYSSA Administration Atorvastatin Calcium 10 mg 06/17/25 09:00 06/24/25 08:59 Atorvastatin 10 Mg Tablet PO 10 mg DAILY ALYSSA Administration Benzonatate 100 mg 06/16/25 22:11 06/23/25 08:14 Benzonatate 100 Mg Capsule PO 100 mg TID PRN Administration cough Dextrose 12.5 gm 06/16/25 22:14 Dextrose 50% 25 Gm/50 Ml Syringe IV PUSH PRN PRN Hypoglycemia Protocol Furosemide 40 mg 06/21/25 09:00 06/24/25 14:36 Furosemide Inj 40 Mg/4 Ml Vial IV PUSH 40 mg TID ALYSSA Administration Glucagon 1 mg 06/16/25 22:14 Glucagon For Inj 1 Mg Vial IM PRN PRN Hypoglycemia Protocol Glucose 15 gm 06/16/25 22:14 Glucose Oral Gel 15 Gm Of Glucse In 37.5 Gm Tube PO PRN PRN Hypoglycemia Protocol Heparin Sodium (Porcine) 7,500 units 06/17/25 21:00 Heparin Sodium 5,000 Units/Ml Vial IV PUSH PRN PRN aPTT less than 55 seconds Heparin Sodium (Porcine) 4,000 units 06/17/25 21:00 06/22/25 05:32 Heparin Sodium 5,000 Units/Ml Vial IV PUSH 4,000 units PRN PRN Administration aPTT 55 - 70 seconds Dextrose 1,000 mls @ 100 mls/hr 06/16/25 22:14 Dextrose 5% 1,000 Ml IVPB PRN PRN Hypoglycemia Protocol Heparin Sodium/Dextrose 25,000 units in 250 mls @ 17 mls/hr 06/17/25 21:00 06/24/25 09:30 Heparin Sodium/D5w 100 Units/Ml IV CONT 1,700 units/hr .[id number] ALYSSA 17 mls/hr Protocol Administration 1,700 UNITS/HR Insulin Aspart 4 - 8 units 06/17/25 08:00 06/24/25 12:34 Insulin Aspart (*Bkc) 100 Units/Ml SUB-Q Not Given TIDWM [facility] Protocol Insulin Aspart 2 - 4 units 06/22/25 21:00 06/23/25 21:15 Insulin Aspart (*Bkc) 100 Units/Ml SUB-Q 3 units HS [facility] Administration Protocol Insulin Aspart 5 units 06/23/25 17:00 06/24/25 12:35 Insulin Aspart (*Bkc) 100 Units/Ml SUB-Q Not Given TIDWM [facility] Insulin Glargine 18 units 06/23/25 21:00 06/23/25 21:13 Insulin Glargine (*Bkc) 100 Units/Ml SUB-Q 18 units HS [facility] Administration Metoprolol Succinate 25 mg 06/17/25 09:00 06/24/25 08:58 Metoprolol Succinate Ext Rel 25 Mg Tabcr PO 25 mg DAILY [facility] Administration Miconazole Nitrate 1 applic 06/17/25 09:00 06/24/25 10:43 Miconazole Nitrate 2% Cream 30 Gm Tube TOPICAL 1 applic Q12HR [facility] Administration Midodrine 5 mg 06/23/25 17:00 06/24/25 08:57 Midodrine Hcl 2.5 Mg Tablet PO 5 mg BID [facility] Administration Ondansetron HCl 4 mg 06/16/25 16:23 Ondansetron Inj 4 Mg/2 Ml Vial IV PUSH Q4H PRN Nausea Potassium Chloride 40 meq 06/20/25 09:45 06/24/25 08:56 Potassium Chloride 20 Meq Er Tablet PO 40 meq DAILY ALYSSA Administration Radiology Results: ITS Impressions Chest X-Ray 06/23/25 10:37 IMPRESSION: 1: NO ACUTE CARDIOPULMONARY DISEASE. Labs Labs: Laboratory Results - last 24 hr 06/23/25 06/23/25 06/24/25 16:05 19:55 05:14 APTT 110.9 H Sodium 131 L Potassium 3.8 Chloride 86 L Carbon Dioxide 35 H Anion Gap 10 BUN 28 H Creatinine 1.24 Estim Creat Clear Calc 61 Estimated GFR 57 L Glucose 275 H POC Capillary Glucose 314 H 342 H Calcium 9.8 06/24/25 06/24/25 06/24/25 07:45 08:56 11:16 APTT Sodium Potassium Chloride Carbon Dioxide Anion Gap BUN Creatinine Estim Creat Clear Calc Estimated GFR Glucose POC Capillary Glucose 315 H 294 H 314 H Calcium Quality VTE Prophylaxis VTE prophylaxis: pharmacologic ordered
[2025-06-24] MEDS: INSULIN ASPART (*BKC) 100 UNITS/ML SUB-Q ×3 (17:18→21:05)
[2025-06-24] MEDS: INSULIN GLARGINE (*BKC) 100 UNITS/ML 18 UNITS SUB-Q (21:04)
[2025-06-25] VITALS (21 sets, daily range): BP systolic 99–136; BP diastolic 60–99; PULSE 68–84; RESP 15–20; TEMP 36.5–37.1; O2SAT 92–100
[2025-06-25] MEDS: HEPARIN SOD/D5W 100 UNITS/ML 25,000 UNITS/250 ML BAG 17 UNITS IV CONT ×2 (01:42→15:49)
[2025-06-25 04:46] LABS: Hematocrit 47.1 % (42.0-52.0); Hemoglobin 15.3 g/dL (14.0-18.0); Immature Granulocyte Percent A 0.6 % (0-0.5); Lymphocytes Absolute Auto 2.26 K/mm3 (0.9-3.2); Mean Corpuscular HGB Conc 32.5 g/dl (32-36); Mean Corpuscular Hemoglobin 29.6 pg (26-34); Mean Corpuscular Volume 91.1 fl (80-100); Nucleated Red Blood Cells Absolute Auto 0.000 K/mm3 (0.0-0.012); Nucleated Red Blood Cells Perc 0.0 % (0.0-0.2); Platelet Count Result 216 k/mm3 (150-375); Red Blood Count 5.17 M/mm3 (4.6-6.20); White Blood Count 10.0 K/mm3 (4.5-10.0)
[2025-06-25 05:18] LABS: Alanine Aminotransferase 19 U/L (6-50); Albumin Level 4.1 g/dL (3.5-5.1); Alkaline Phosphatase 98 U/L (38-126); Anion Gap 11 mmol/L (4-12); Aspartate Amino Transferase 24 U/L (17-59); Bilirubin,Total 1.0 mg/dL (0.2-1.3); Blood Urea Nitrogen 32 mg/dL (9-20); Calcium 9.3 mg/dL (8.4-10.2); Carbon Dioxide 31 mmol/L (22-30); Chloride 87 mmol/L (98-107); Estimated CRCL calculation 62 ml/min; Estimated Glomerular Filt Rate 59; Glucose 273 mg/dL (65-110); Magnesium 1.3 mg/dL (1.6-2.3); Potassium 3.5 mmol/L (3.4-5.0); Sodium 129 mmol/L (137-145); Total Protein 7.7 g/dL (6.3-8.2)
--- NOTE | 2025-06-25 09:10 | P.PNCA_ITS ---
Progress Note: A&P Assessment and Plan (1) Cardiomyopathy: Code(s): I42.9 - Cardiomyopathy, unspecified Status: Acute Assessment and Plan: New diagnosis severe cardiomyopathy. -continue metoprolol succinate 25 daily -will discontinue midodrine and try to reintroduce GDMT slowly tomorrow -eventually add jardiance -coronary angiogram when able to lay flat - tentatively tomorrow. -LifeVest prior to discharge (2) CHF (congestive heart failure): Qualifiers: Heart failure chronicity: acute Heart failure type: systolic Qualified Code(s): I50.21 - Acute systolic (congestive) heart failure Code(s): I50.9 - Heart failure, unspecified Status: Acute Assessment and Plan: Acute exacerbation of systolic heart failure. * He has diuresed over 13 L this admission. Will shift him to furosemide p.o. 80 mg b.i.d. starting this evening. * Strict intake and output * Daily weights * 1500cc fluid restriction * CHF counseling * Pravin andres (3) Paroxysmal atrial fibrillation: Code(s): I48.0 - Paroxysmal atrial fibrillation Status: Chronic Assessment and Plan: He has paroxysmal atrial fibrillation on anticoagulation with Xarelto and rate controlled. 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 Subjective Date/time seen: 06/25/25 09:10 Interval history: Cardiology follow up visit No acute events overnight Denies chest pain Making urine Date of service 06/19/2025: He feels ok today. Diuresing well, but still has significant edema. No chest pain, palpitations. Date of service 06/20/2025: No acute events overnight. Feeling ok. Still has orthopnea, unable to sleep in bed. Edema slowly improving. No palpitations. Date of service 06/21/2025-sitting on chair. He is very edematous. AFib with RVR. Blood pressure is soft. Date of service 06/22/2025: Resting comfortably on chair. Remains tachycardic with AFib. Remains edematous although patient feels it is improving. He does have edema up to the thighs. 06/25/2025: Remains in sinus rhythm after cardioversion yesterday. He feels about the same. His lower extremity edema continues to improve slowly. No chest pain, shortness of breath. Review of Systems Review of Systems: All systems reviewed & are unremarkable except as noted in HPI and below Exam Const: General: comfortable, no acute distress, alert and awake Orientation/consciousness: patient oriented x3 HENMT: Head: normal to inspection Eyes: General: appearance normal, both eyes and all related structures Pupils: Equal, round and reactive pupils present Neck: Neck: normal visual inspection and supple Carotids: normal carotid upstroke Other: Unable to assess for JVD given body habitus. Resp: Effort & Inspection: normal respiratory effort Auscultation: not clear to auscultation bilaterally and rales bilateral 1/[address] up Cardio: Rate: regular rate Rhythm: regular rhythm and abnormal rhythm irregularly irregular Heart sounds: S1 normal heart sound present, S2 normal heart sound present and no murmurs GI: Inspection: distended Auscultation: normal bowel sounds Skin: General skin exam: normal color Neuro: General: patient oriented x3 Cranial nerves: Yes Equal, round and reactive pupils present Extrem: General: abnormal to inspection, edema and pedal edema Other: 2+ bilateral pretibial and pedal edema. Erythema bilateral lower legs Psych: Appearance: grossly normal Mental Status: mental status grossly normal Objective Data Vital Signs Vital Signs: Vital Signs - 24 hr 06/24/25 10:00 06/24/25 11:50 06/24/25 12:00 Temperature 36.4 C L Pulse Rate 91 108 H Respiratory Rate 20 Blood Pressure 132/91 H Pulse Oximetry 99 Oxygen Delivery Room Air 06/24/25 12:00 06/24/25 13:45 06/24/25 14:00 Temperature Pulse Rate 74 76 70 Respiratory Rate 18 14 Blood Pressure 120/80 119/100 H Pulse Oximetry 100 97 Oxygen Delivery Room Air Room Air 06/24/25 14:00 06/24/25 14:15 06/24/25 15:35 Temperature 36.5 C Pulse Rate 86 79 80 Respiratory Rate 21 H 20 Blood Pressure 103/65 104/65 Pulse Oximetry 98 99 Oxygen Delivery Room Air 06/24/25 16:00 06/24/25 16:00 06/24/25 17:16 Temperature Pulse Rate 83 82 Respiratory Rate Blood Pressure Pulse Oximetry Oxygen Delivery Room Air 06/24/25 18:00 06/24/25 20:00 06/24/25 20:35 Temperature 36.7 C Pulse Rate 79 83 84 Respiratory Rate 16 Blood Pressure 111/60 Pulse Oximetry 100 Oxygen Delivery 06/24/25 21:42 06/24/25 22:00 06/25/25 00:00 Temperature Pulse Rate 81 81 Respiratory Rate Blood Pressure Pulse Oximetry 98 Oxygen Delivery Room Air 06/25/25 00:13 06/25/25 02:00 06/25/25 03:24 Temperature 36.8 C 36.8 C Pulse Rate 80 80 81 Respiratory Rate 15 16 Blood Pressure 127/79 121/60 Pulse Oximetry 96 96 Oxygen Delivery 06/25/25 04:00 06/25/25 06:00 06/25/25 08:00 Temperature 36.8 C Pulse Rate 82 81 68 Respiratory Rate 16 Blood Pressure 123/99 H Pulse Oximetry 98 Oxygen Delivery Intake/Output Intake/Output: Intake & Output 06/22/25 06/23/25 06/24/25 06/25/25 23:59 23:59 23:59 23:59 Intake Total 1392.5 1616.1 640 760 Output Total 2600 2600 1750 1100 Balance -1207.5 -983.9 -1110 -340 Meds/Results Medications: Active Medications Generic Name Dose Route Start Last Admin Trade Name Freq PRN Reason Stop Dose Admin Albuterol 2 puff 06/16/25 22:11 Albuterol Sulfate (*Sp) Aerosol 1 Puff INHALATION Q4H PRN shortness of breath or wheezing Allopurinol 300 mg 06/17/25 08:00 06/24/25 08:58 Allopurinol 300 Mg Tablet PO 300 mg DAILY@0800 ALYSSA Administration Amiodarone HCl 400 mg 06/22/25 09:00 06/24/25 17:16 Amiodarone Hcl 200 Mg Tablet PO 400 mg BID ALYSSA Administration Ascorbic Acid 125 mg 06/17/25 09:00 06/24/25 09:01 Ascorbic Acid 125 Mg Tablet BY MOUTH 125 mg DAILY ALYSSA Administration Atorvastatin Calcium 10 mg 06/17/25 09:00 06/24/25 08:59 Atorvastatin 10 Mg Tablet PO 10 mg DAILY ALYSSA Administration Benzonatate 100 mg 06/16/25 22:11 06/23/25 08:14 Benzonatate 100 Mg Capsule PO 100 mg TID PRN Administration cough Dextrose 12.5 gm 06/16/25 22:14 Dextrose 50% 25 Gm/50 Ml Syringe IV PUSH PRN PRN Hypoglycemia Protocol Furosemide 40 mg 06/21/25 09:00 06/24/25 17:19 Furosemide Inj 40 Mg/4 Ml Vial IV PUSH 40 mg TID ALYSSA Administration Glucagon 1 mg 06/16/25 22:14 Glucagon For Inj 1 Mg Vial IM PRN PRN Hypoglycemia Protocol Glucose 15 gm 06/16/25 22:14 Glucose Oral Gel 15 Gm Of Glucse In 37.5 Gm Tube PO PRN PRN Hypoglycemia Protocol Heparin Sodium (Porcine) 7,500 units 06/17/25 21:00 Heparin Sodium 5,000 Units/Ml Vial IV PUSH PRN PRN aPTT less than 55 seconds Heparin Sodium (Porcine) 4,000 units 06/17/25 21:00 06/22/25 05:32 Heparin Sodium 5,000 Units/Ml Vial IV PUSH 4,000 units PRN PRN Administration aPTT 55 - 70 seconds Dextrose 1,000 mls @ 100 mls/hr 06/16/25 22:14 Dextrose 5% 1,000 Ml IVPB PRN PRN Hypoglycemia Protocol Heparin Sodium/Dextrose 25,000 units in 250 mls @ 17 mls/hr 06/17/25 21:00 06/25/25 01:42 Heparin Sodium/D5w 100 Units/Ml IV CONT 1,700 units/hr .[id number] [facility] 17 mls/hr Protocol Administration 1,700 UNITS/HR Magnesium Sulfate/Dextrose 3 gm in 100 mls @ 33.333 mls/hr 06/25/25 08:40 Magnesium Sulfate 3gm/[id number] IVPB 06/25/25 11:39 ONCE ONE Insulin Aspart 4 - 8 units 06/17/25 08:00 06/24/25 17:18 Insulin Aspart (*Bkc) 100 Units/Ml SUB-Q 5 units TIDWM ALYSSA Administration Protocol Insulin Aspart 2 - 4 units 06/22/25 21:00 06/24/25 21:05 Insulin Aspart (*Bkc) 100 Units/Ml SUB-Q 4 units HS ALYSSA Administration Protocol Insulin Aspart 5 units 06/23/25 17:00 06/24/25 17:19 Insulin Aspart (*Bkc) 100 Units/Ml SUB-Q 5 units TIDWM ALYSSA Administration Insulin Glargine 18 units 06/23/25 21:00 06/24/25 21:04 Insulin Glargine (*Bkc) 100 Units/Ml SUB-Q 18 units HS ALYSSA Administration Metoprolol Succinate 25 mg 06/17/25 09:00 06/24/25 08:58 Metoprolol Succinate Ext Rel 25 Mg Tabcr PO 25 mg DAILY ALYSSA Administration Miconazole Nitrate 1 applic 06/17/25 09:00 06/24/25 21:05 Miconazole Nitrate 2% Cream 30 Gm Tube TOPICAL 1 applic Q12HR ALYSSA Administration Midodrine 5 mg 06/23/25 17:00 06/24/25 17:17 Midodrine Hcl 2.5 Mg Tablet PO 5 mg BID ALYSSA Administration Ondansetron HCl 4 mg 06/16/25 16:23 Ondansetron Inj 4 Mg/2 Ml Vial IV PUSH Q4H PRN Nausea Potassium Chloride 40 meq 06/20/25 09:45 06/24/25 08:56 Potassium Chloride 20 Meq Er Tablet PO 40 meq DAILY ALYSSA Administration Radiology Results: ITS Impressions Chest X-Ray 06/23/25 10:37 IMPRESSION: 1: NO ACUTE CARDIOPULMONARY DISEASE. Labs Labs: Laboratory Results - last 24 hr 06/24/25 06/24/25 06/24/25 08:56 11:16 15:41 WBC RBC Hgb Hct MCV MCH MCHC RDW Plt Count MPV Immature Gran % (Auto) Neut % (Auto) Lymph % (Auto) [place] % (Auto) Eos % (Auto) Baso % (Auto) Lymph # (Auto) [place] # (Auto) Eos # (Auto) Baso # (Auto) Abs Immat Gran (auto) Absolute Neuts (auto) Absolute Nucleated RBC Nucleated RBC % Sodium Potassium Chloride Carbon Dioxide Anion Gap BUN Creatinine Estim Creat Clear Calc Estimated GFR Glucose POC Capillary Glucose 294 H 314 H 279 H Calcium Magnesium Total Bilirubin AST ALT Alkaline Phosphatase Total Protein Albumin 06/24/25 06/25/25 06/25/25 20:13 04:15 07:30 WBC 10.0 RBC 5.17 Hgb 15.3 Hct 47.1 MCV 91.1 MCH 29.6 MCHC 32.5 RDW 15.7 H Plt Count 216 MPV 11.6 H Immature Gran % (Auto) 0.6 H Neut % (Auto) 67.0 Lymph % (Auto) 22.7 [place] % (Auto) 6.7 Eos % (Auto) 2.2 Baso % (Auto) 0.8 Lymph # (Auto) 2.26 [place] # (Auto) 0.7 H Eos # (Auto) 0.2 Baso # (Auto) 0.1 Abs Immat Gran (auto) 0.06 H Absolute Neuts (auto) 6.7 Absolute Nucleated RBC 0.000 Nucleated RBC % 0.0 Sodium 129 L Potassium 3.5 Chloride 87 L Carbon Dioxide 31 H Anion Gap 11 BUN 32 H Creatinine 1.22 Estim Creat Clear Calc 62 Estimated GFR 59 Glucose 273 H POC Capillary Glucose 363 H 292 H Calcium 9.3 Magnesium 1.3 L Total Bilirubin 1.0 AST 24 ALT 19 Alkaline Phosphatase 98 Total Protein 7.7 Albumin 4.1
[2025-06-25] MEDS: INSULIN ASPART (*BKC) 100 UNITS/ML SUB-Q ×5 (09:50→20:59)
[2025-06-25] MEDS: POTASSIUM CHLORIDE 20 MEQ ER TABLET 40 MEQ PO (09:58)
[2025-06-25] MEDS: METOPROLOL SUCCINATE EXT REL 25 MG TABCR PO (10:01)
[2025-06-25] MEDS: ATORVASTATIN 10 MG TABLET PO (10:01)
[2025-06-25] MEDS: AMIODARONE HCL 200 MG TABLET 400 MG PO ×2 (10:02→16:55)
[2025-06-25] MEDS: ASCORBIC ACID 125 MG TABLET BY MOUTH (10:02)
[2025-06-25] MEDS: MIDODRINE HCL 2.5 MG TABLET 5 MG PO (10:03)
[2025-06-25] MEDS: MAGNESIUM SULFATE 3GM/D5W100ML 3 GM/100 ML BAG IVPB (10:05)
[2025-06-25] MEDS: FUROSEMIDE INJ 40 MG/4 ML VIAL IV PUSH ×2 (10:06→13:19)
[2025-06-25] MEDS: POTASSIUM CHLORIDE 20 MEQ ER TABLET PO (10:46)
--- NOTE | 2025-06-25 13:03 | PC.NURSE ---
Called Dr. Casas he said to hold lunch time insulin due to late administration of morning insulin and to recheck blood sugar again in 2 hours.
--- NOTE | 2025-06-25 14:40 | PCOTNOTE ---
Attempted to see Patient for OT treatment session. Patient declined, not today.
[2025-06-25 14:52] LABS: Anion Gap 11 mmol/L (4-12); Blood Urea Nitrogen 29 mg/dL (9-20); Calcium 9.5 mg/dL (8.4-10.2); Carbon Dioxide 33 mmol/L (22-30); Chloride 85 mmol/L (98-107); Estimated CRCL calculation 62 ml/min; Estimated Glomerular Filt Rate 59; Glucose 277 mg/dL (65-110); Potassium 3.7 mmol/L (3.4-5.0); Sodium 129 mmol/L (137-145)
[2025-06-25] MEDS: MICONAZOLE NITRATE 2% CREAM 30 GM TUBE 1 APPLIC TOPICAL ×2 (15:49→21:00)
[2025-06-25] MEDS: BENZOCAINE 20% DENTAL GEL 9 GM TUBE 1 APPLIC BY MOUTH (15:50)
--- NOTE | 2025-06-25 16:35 | P.PNIM_ITS ---
Progress Note: A&P Assessment and Plan (1) CHF (congestive heart failure): Qualifiers: Heart failure chronicity: acute Heart failure type: systolic Qualified Code(s): I50.21 - Acute systolic (congestive) heart failure Code(s): I50.9 - Heart failure, unspecified Status: Acute Assessment and Plan: Patient presents with shortness of breath. BNP 3890. Chest x-ray shows bilateral airspace opacities and pulmonary vascular congestion with cardiomegaly. Recent echo (06/13/25): systolic function was severely globally reduced, EF of 20-25%, diastolic function abnormal, AFib, and mild valvular disease with no pulmonary hypertension Patient with acute systolic and diastolic CHF. Cardiology consulted and appreciate their input. Treated with IV Lasix intermittently and occasional Zaroxolyn. I&Os showing -12L with about a 16kg weight loss (127->111kg) On Metoprolol XL 25mg Lasix switched to oral. Midodrine stopped. Cardiology to titrate in GDMT for heart failure Left heart catheterization being planned. LifeVest being arranged. Monitor renal function, urine output and electrolytes. (2) Diabetes mellitus: Qualifiers: Diabetes mellitus complication status: without complication Diabetes mellitus fci insulin use: without superintendent container terminal use Diabetes mellitus type: type 2 Qualified Code(s): E11.9 - Type 2 diabetes mellitus without complications Code(s): E11.9 - Type 2 diabetes mellitus without complications Status: Chronic Assessment and Plan: A1c 8.5% on 05/20/25. The patient's blood glucose was reviewed on 06/25 Glucose remains poorly controlled Currently on Lantus 18 units at night and NovoLog 5 units at mealtimes. Continue AccuCheks covering with sliding scale. Hypoglycemia protocol available as needed. Glipizide on hold. Will hold on adjusting his medications at this time since he is NPO after midnight. (3) Paroxysmal atrial fibrillation: Code(s): I48.0 - Paroxysmal atrial fibrillation Status: Chronic Assessment and Plan: Patient with atrial fibrillation on Xarelto at home. EKG showing atrial fibrillation on admission. TSH normal. Started on amiodarone loading. Continued on Metoprolol XL 25mg Xarelto on hold. Currently on heparin drip. EKG yesterday was reviewed showing normal sinus rhythm with PACs and PVCs. Monitor on telemetry (4) Hypertension: Qualifiers: Hypertension type: essential hypertension Qualified Code(s): I10 - Essential (primary) hypertension Code(s): I10 - Essential (primary) hypertension Status: Chronic Assessment and Plan: Patient with known hypertension. Blood pressure has been running soft requiring midodrine. Midodrine has been stopped. Monitor closely. Advance medications as blood pressure tolerates. Plan Nonsustained V-tach -patient with brief run of NSVT noted. Magnesium is low in this will be replaced. Potassium 3.5 and placement has been ordered. Monitor on telemetry. Continue to monitor electrolytes to keep magnesium >2 and potassium >4. Somnolent -TSH normal. Check ApneaLink. Bilateral lower extremity rash - appears consistent with cutaneous candidiasis and Ketoconazole topical ordered. Could also be skin findings related to cardiac congestion and dependent edema. Follow. DVT Prophylaxis: Heparin Code Status: Full code Subjective Date/time seen: 06/25/25 16:35 Interval history: 69yo male with AFib on anticoagulation, former smoker, CAD, HLD, HTN and DM presents here with shortness of breath. Assuming care. Chart reviewed. Patient was fitted for a Life Vest this morning. He does have daytime somnolence. No history of sleep apnea. He has been up walking to the bathroom. No chest pain, shortness of breath or dyspnea on exertion Exam Narrative: AF 98.3 132/74 80 20 99% ra Gen - NARD Chest -few bibasilar inspiratory crackles otherwise clear. Life vest in place. CV -irregularly irregular. Telemetry showing 5 beat run of NSVT and PVCs Abd - Soft, obese, nontender Ext - 1-2+ pedal edema Neuro - Awake but falls asleep quickly. Psych - pleasant and appropriate. Skin - pink, blanchable erythema bilateral LE without warmth Objective Data Vital Signs Vital Signs: Vital Signs - 24 hr 06/24/25 17:16 06/24/25 18:00 06/24/25 20:00 Temperature Pulse Rate 82 79 83 Respiratory Rate Blood Pressure Pulse Oximetry Oxygen Delivery 06/24/25 20:35 06/24/25 21:42 06/24/25 22:00 Temperature 98.1 F Pulse Rate 84 81 Respiratory Rate 16 Blood Pressure 111/60 Pulse Oximetry 100 98 Oxygen Delivery Room Air 06/25/25 00:00 06/25/25 00:13 06/25/25 02:00 Temperature 98.2 F Pulse Rate 81 80 80 Respiratory Rate 15 Blood Pressure 127/79 Pulse Oximetry 96 Oxygen Delivery 06/25/25 03:24 06/25/25 04:00 06/25/25 06:00 Temperature 98.3 F Pulse Rate 81 82 81 Respiratory Rate 16 Blood Pressure 121/60 Pulse Oximetry 96 Oxygen Delivery 06/25/25 08:00 06/25/25 08:00 06/25/25 08:00 Temperature 98.2 F Pulse Rate 68 83 Respiratory Rate 16 Blood Pressure 123/99 H Pulse Oximetry 98 Oxygen Delivery Room Air 06/25/25 10:00 06/25/25 10:01 06/25/25 10:02 Temperature Pulse Rate 84 81 81 Respiratory Rate Blood Pressure Pulse Oximetry Oxygen Delivery 06/25/25 11:09 06/25/25 12:00 06/25/25 12:00 Temperature 98.3 F Pulse Rate 77 79 Respiratory Rate 20 Blood Pressure 132/74 Pulse Oximetry 99 Oxygen Delivery Room Air 06/25/25 14:00 06/25/25 15:27 Temperature Pulse Rate 80 Respiratory Rate Blood Pressure Pulse Oximetry Oxygen Delivery Room Air Intake/Output Intake/Output: Intake & Output 06/22/25 06/23/25 06/24/25 06/25/25 23:59 23:59 23:59 23:59 Intake Total 1392.5 1616.1 640 1400 Output Total 2600 2600 1750 1450 Balance -1207.5 -983.9 -1110 -50 Meds/Results Medications: Active Medications Generic Name Dose Route Start Last Admin Trade Name Freq PRN Reason Stop Dose Admin Albuterol 2 puff 06/16/25 22:11 Albuterol Sulfate (*Sp) Aerosol 1 Puff INHALATION Q4H PRN shortness of breath or wheezing Allopurinol 300 mg 06/17/25 08:00 06/25/25 10:00 Allopurinol 300 Mg Tablet PO 300 mg DAILY@0800 ALYSSA Administration Amiodarone HCl 400 mg 06/22/25 09:00 06/25/25 10:02 Amiodarone Hcl 200 Mg Tablet PO 400 mg BID ALYSSA Administration Ascorbic Acid 125 mg 06/17/25 09:00 06/25/25 10:02 Ascorbic Acid 125 Mg Tablet BY MOUTH 125 mg DAILY ALYSSA Administration Atorvastatin Calcium 10 mg 08/19/25 09:00 06/25/25 10:01 Atorvastatin 10 Mg Tablet PO 10 mg DAILY ALYSSA Administration Benzocaine 1 applic 06/25/25 12:57 06/25/25 15:50 Benzocaine 20% Dental Gel 9 Gm Tube BY MOUTH 1 applic QID PRN Administration Oral Pain Benzonatate 100 mg 06/16/25 22:11 06/23/25 08:14 Benzonatate 100 Mg Capsule PO 100 mg TID PRN Administration cough Dextrose 12.5 gm 06/16/25 22:14 Dextrose 50% 25 Gm/50 Ml Syringe IV PUSH PRN PRN Hypoglycemia Protocol Furosemide 80 mg 06/25/25 17:00 Furosemide 80 Mg Tablet PO BID ALYSSA Glucagon 1 mg 06/16/25 22:14 Glucagon For Inj 1 Mg Vial IM PRN PRN Hypoglycemia Protocol Glucose 15 gm 06/16/25 22:14 Glucose Oral Gel 15 Gm Of Glucse In 37.5 Gm Tube PO PRN PRN Hypoglycemia Protocol Heparin Sodium (Porcine) 7,500 units 06/17/25 21:00 Heparin Sodium 5,000 Units/Ml Vial IV PUSH PRN PRN aPTT less than 55 seconds Heparin Sodium (Porcine) 4,000 units 06/17/25 21:00 06/22/25 05:32 Heparin Sodium 5,000 Units/Ml Vial IV PUSH 4,000 units PRN PRN Administration aPTT 55 - 70 seconds Dextrose 1,000 mls @ 100 mls/hr 06/16/25 22:14 Dextrose 5% 1,000 Ml IVPB PRN PRN Hypoglycemia Protocol Heparin Sodium/Dextrose 25,000 units in 250 mls @ 17 mls/hr 06/17/25 21:00 06/25/25 15:49 Heparin Sodium/D5w 100 Units/Ml IV CONT 1,700 units/hr .[id number] [facility] 17 mls/hr Protocol Administration 1,700 UNITS/HR Insulin Aspart 4 - 8 units 06/17/25 08:00 06/25/25 13:07 Insulin Aspart (*Bkc) 100 Units/Ml SUB-Q Not Given TIDWM [facility] Protocol Insulin Aspart 2 - 4 units 06/22/25 21:00 06/24/25 21:05 Insulin Aspart (*Bkc) 100 Units/Ml SUB-Q 4 units HS ALYSSA Administration Protocol Insulin Aspart 5 units 06/23/25 17:00 06/25/25 13:07 Insulin Aspart (*Bkc) 100 Units/Ml SUB-Q Not Given TIDWM [facility] Insulin Glargine 18 units 06/23/25 21:00 06/24/25 21:04 Insulin Glargine (*Bkc) 100 Units/Ml SUB-Q 18 units HS ALYSSA Administration Metoprolol Succinate 25 mg 06/17/25 09:00 06/25/25 10:01 Metoprolol Succinate Ext Rel 25 Mg Tabcr PO 25 mg DAILY ALYSSA Administration Miconazole Nitrate 1 applic 06/17/25 09:00 06/25/25 15:49 Miconazole Nitrate 2% Cream 30 Gm Tube TOPICAL 1 applic Q12HR ALYSSA Administration Ondansetron HCl 4 mg 06/16/25 16:23 Ondansetron Inj 4 Mg/2 Ml Vial IV PUSH Q4H PRN Nausea Potassium Chloride 40 meq 06/20/25 09:45 06/25/25 09:58 Potassium Chloride 20 Meq Er Tablet PO 40 meq DAILY ALYSSA Administration Radiology Results: ITS Impressions Chest X-Ray 06/23/25 10:37 IMPRESSION: 1: NO ACUTE CARDIOPULMONARY DISEASE. Labs Labs: Laboratory Results - last 24 hr 06/24/25 06/25/25 06/25/25 20:13 04:15 07:30 WBC 10.0 RBC 5.17 Hgb 15.3 Hct 47.1 MCV 91.1 MCH 29.6 MCHC 32.5 RDW 15.7 H Plt Count 216 MPV 11.6 H Immature Gran % (Auto) 0.6 H Neut % (Auto) 67.0 Lymph % (Auto) 22.7 [place]utherford % (Auto) 6.7 Eos % (Auto) 2.2 Baso % (Auto) 0.8 Lymph # (Auto) 2.26 [place]utherford # (Auto) 0.7 H Eos # (Auto) 0.2 Baso # (Auto) 0.1 Abs Immat Gran (auto) 0.06 H Absolute Neuts (auto) 6.7 Absolute Nucleated RBC 0.000 Nucleated RBC % 0.0 Sodium 129 L Potassium 3.5 Chloride 87 L Carbon Dioxide 31 H Anion Gap 11 BUN 32 H Creatinine 1.22 Estim Creat Clear Calc 62 Estimated GFR 59 Glucose 273 H POC Capillary Glucose 363 H 292 H Calcium 9.3 Magnesium 1.3 L Total Bilirubin 1.0 AST 24 ALT 19 Alkaline Phosphatase 98 Total Protein 7.7 Albumin 4.1 06/25/25 06/25/25 06/25/25 09:49 11:38 14:04 WBC RBC Hgb Hct MCV MCH MCHC RDW Plt Count MPV Immature Gran % (Auto) Neut % (Auto) Lymph % (Auto) [place]uther[place] % (Auto) Eos % (Auto) Baso % (Auto) Lymph # (Auto) [place] # (Auto) Eos # (Auto) Baso # (Auto) Abs Immat Gran (auto) Absolute Neuts (auto) Absolute Nucleated RBC Nucleated RBC % Sodium 129 L Potassium 3.7 Chloride 85 L Carbon Dioxide 33 H Anion Gap 11 BUN 29 H Creatinine 1.21 Estim Creat Clear Calc 62 Estimated GFR 59 Glucose 277 H POC Capillary Glucose 305 H 316 H 311 H Calcium 9.5 Magnesium Total Bilirubin AST ALT Alkaline Phosphatase Total Protein Albumin
--- NOTE | 2025-06-25 16:39 | PC.NURSE ---
On 06/25/25, the student, Joyce Mott, provided care and completed [facility] documentation on this patient. I have reviewed the student's documentation and agree with the findings.
[2025-06-25] MEDS: FUROSEMIDE 80 MG TABLET PO (16:54)
[2025-06-25] MEDS: INSULIN GLARGINE (*BKC) 100 UNITS/ML 18 UNITS SUB-Q (20:59)
[2025-06-26] VITALS (34 sets, daily range): BP systolic 95–136; BP diastolic 54–93; PULSE 67–84; RESP 12–20; TEMP 36.6–36.8; O2SAT 9–99
[2025-06-26 04:17] LABS: Hematocrit 47.9 % (42.0-52.0); Hemoglobin 15.5 g/dL (14.0-18.0); Mean Corpuscular HGB Conc 32.4 g/dl (32-36); Mean Corpuscular Hemoglobin 29.4 pg (26-34); Mean Corpuscular Volume 90.9 fl (80-100); Platelet Count Result 215 k/mm3 (150-375); Red Blood Count 5.27 M/mm3 (4.6-6.20); White Blood Count 10.7 K/mm3 (4.5-10.0)
[2025-06-26 04:30] LABS: Albumin Level 4.3 g/dL (3.5-5.1); Anion Gap 9 mmol/L (4-12); Blood Urea Nitrogen 29 mg/dL (9-20); Calcium 9.5 mg/dL (8.4-10.2); Carbon Dioxide 34 mmol/L (22-30); Chloride 86 mmol/L (98-107); Estimated CRCL calculation 59 ml/min; Estimated Glomerular Filt Rate 55; Glucose 250 mg/dL (65-110); Magnesium 1.5 mg/dL (1.6-2.3); Potassium 3.6 mmol/L (3.4-5.0); Sodium 129 mmol/L (137-145)
[2025-06-26] MEDS: HEPARIN SOD/D5W 100 UNITS/ML 25,000 UNITS/250 ML BAG 17 UNITS IV CONT (05:16)
[2025-06-26] MEDS: MAGNESIUM SULF 2 GM/WATER 50ML 2 GM/50 ML BAG IVPB (08:37)
[2025-06-26] MEDS: POTASSIUM CHLORIDE 20 MEQ ER TABLET 40 MEQ PO (08:42)
[2025-06-26] MEDS: AMIODARONE HCL 200 MG TABLET 400 MG PO (08:42)
[2025-06-26] MEDS: METOPROLOL SUCCINATE EXT REL 25 MG TABCR PO (08:44)
[2025-06-26] MEDS: ATORVASTATIN 10 MG TABLET PO (08:44)
[2025-06-26] MEDS: ASCORBIC ACID 125 MG TABLET BY MOUTH (08:44)
--- NOTE | 2025-06-26 09:18 | PCCDE ---
06/26/25 DM Educator at [facility] - outpatient today: reviewed labs/meds and discussed with Danielle INGRAM Fasting POC: 06/24: 315 06/25: 292 06/26: 299 This AM bolus insulin held due to scheduled cardiac cath per discussion with Danielle Guillens: Lantus 18 U HS and Novolog 5 U TIDwm + High dose Correction. Patient continues with hyperglycemia - If patient not Discharged today. When re-initiate insulin dosing: RECOMMEND increase to Mondays wt based dosing: Lantus 22 U Novolog 7 U TIDwm Continue correction. Monitor Glucose for potential insulin titration needs. Above discussed with Danielle INGRAM. Thank you Dennise DAVIDSON
--- NOTE | 2025-06-26 09:41 | PC.NURSE ---
spoke with pt/his at request of perioperative educator, they are aware to make appt with his primary concerning his daily insulin dosage when he goes home
[2025-06-26] MEDS: MICONAZOLE NITRATE 2% CREAM 30 GM TUBE 1 APPLIC TOPICAL ×2 (12:23→21:34)
--- NOTE | 2025-06-26 13:54 | PC.NURSE ---
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
[2025-06-26] MEDS: SODIUM CHLORIDE 0.9% IV 1,000 ML 100 ML IV CONT (14:30)
--- NOTE | 2025-06-26 15:07 | WPDCARDPROC ---
Cardiac Cath Procedure Note Date of procedure:: 06/26/25 Performing physician:: CATHETERIZATION LABORATORY REPORT Procedure Date: 06/26/2025 Referring Physician: Dr. Casas Anesthesia: Versed and Fentanyl were ordered and given in my presence at 1424, procedure ended at 1448. Supervision of nurse, Mamta Lin monitored moderate sedation with 1mg Versed and 75mcg Fentanyl was provided for 24 minutes. Pre-op Diagnosis: Cardiomyopathy Post-op Diagnosis: Cardiomyopathy Procedure(s): Left heart catheterization with coronary angiography Access Site: Right radial artery Brief History and Clinical Indications: All risks, benefits and alternatives to left heart catheterization with or without percutaneous coronary intervention was discussed at length with the patient. Risk of complications including but not limited to bleeding, infection, arrhythmia, stroke, worsening kidney function, blood loss, groin hematoma, limb loss, emergency coronary artery bypass grafting, and even were discussed with the patient and all questions were answered. The patient understood and wished to proceed. Time out called, patient name, date of , medical record number, allergies, procedure performed, identify Extension Educator, patient and staff member concurred with accurate data, procedure carried on. Findings: LEFT HEART CATHETERIZATION FINDINGS: 1. Left main: The left main coronary artery has 20% ostial stenosis. 2. Left anterior descending: The LAD and the diagonal branches have mild luminal irregularities without any significant obstructive angiographic disease. 3. Left circumflex: The left circumflex artery and the main marginal branches have mild luminal irregularities without any significant obstructive angiographic disease. 4. Right coronary artery: The RCA has mild luminal irregularities without any significant obstructive angiographic disease. The RCA is the dominant vessel. 5. Left ventricle: A. End-diastolic pressure 20 mmHg. B. LV gram deferred. C. No significant gradient across aortic valve on catheter pullback. 6. Opening AO pressure 115/75 and closing AO pressure 107/66 Description of Procedure: Informed consent signed and placed in the chart. Patient transferred to stores laborer room. Prepped and draped in usual sterile fashion. 2% lidocaine injected subcutaneously in right wrist area. 22-gauge venipuncture catheter used to access the right radial artery with the Seldinger technique. 6-FR slender sheath placed in right radial artery. Nitroglycerin 200mcg, Verapamil 2.5mg, and Heparin 5000U was given intraarterial through the sheath. J wire advanced under fluoroscopy 5F JL3.5 diagnostic catheter engaged Left Main Coronary Artery. 5F Ultra diagnostic catheter engaged Right Coronary Artery Multiple orthogonal angiogram obtained and reviewed 5F Ultra diagnostic catheter crossed aortic valve to obtain LVEDP, LV angiogram deferred. Hemostasis was achieved by application of TR band. Assessment: Mild CAD Nonischemic Cardiomyopathy Post Operative Condition: Stable No significant blood loss Disposition: Floor Plan: Continue adding GDMT as tolerated. Continue aggressive medical therapy and risk factor modification. Barrington Ramírez Interventional Cardiology
--- NOTE | 2025-06-26 16:37 | PM.IMPN ---
Progress Note: A&P Assessment and Plan (1) CHF (congestive heart failure): Qualifiers: Heart failure chronicity: acute Heart failure type: systolic Qualified Code(s): I50.21 - Acute systolic (congestive) heart failure Code(s): I50.9 - Heart failure, unspecified Status: Acute Assessment and Plan: Patient presents with shortness of breath. BNP 3890. Chest x-ray shows bilateral airspace opacities and pulmonary vascular congestion with cardiomegaly. Recent echo (06/13/25): systolic function was severely globally reduced, EF of 20-25%, diastolic function abnormal, AFib, and mild valvular disease with no pulmonary hypertension Patient with acute systolic and diastolic CHF. Cardiology consulted and appreciate their input. Treated with IV Lasix intermittently and occasional Zaroxolyn. I&Os showing -13.7L with about a 16kg weight loss On Metoprolol XL 25mg daily Lasix switched to oral. Midodrine stopped. LHC showing mild CAD and felt patient with nonischemic CMP. Donta added. Cardiology to titrate in GDMT for heart failure LifeVest in place Monitor BP, renal function, urine output and electrolytes. (2) Diabetes mellitus: Qualifiers: Diabetes mellitus type: type 2 Diabetes mellitus detention insulin use: without detention use Diabetes mellitus complication status: without complication Qualified Code(s): E11.9 - Type 2 diabetes mellitus without complications Code(s): E11.9 - Type 2 diabetes mellitus without complications Status: Chronic Assessment and Plan: A1c 8.5% on 05/20/25. The patient's blood glucose was reviewed on 06/26 Glucose remains poorly controlled Currently on Lantus 18 units at night and NovoLog 5 units at mealtimes. Continue AccuCheks covering with sliding scale. Hypoglycemia protocol available as needed. Glipizide on hold. Will adjust medications per [facility]ulatory [facility]ship input. (3) Paroxysmal atrial fibrillation: Code(s): I48.0 - Paroxysmal atrial fibrillation Status: Chronic Assessment and Plan: Patient with atrial fibrillation on Xarelto at home. EKG showing atrial fibrillation on admission. TSH normal. Started on amiodarone loading. Continued on Metoprolol XL 25mg Was on Heparin drip and Xarelto was on hold. EKG showing normal sinus rhythm with PACs and PVCs. Heparin stopped and Xarelto resumed after LHC. Monitor on telemetry (4) Hypertension: Qualifiers: Hypertension type: essential hypertension Qualified Code(s): I10 - Essential (primary) hypertension Code(s): I10 - Essential (primary) hypertension Status: Chronic Assessment and Plan: Patient with known hypertension. Blood pressure has been running soft requiring midodrine. Midodrine has since been stopped. Monitor closely. Advance medications as blood pressure tolerates. Plan Nonsustained V-tach -patient with brief run of NSVT noted. Magnesium is low again and this will be replaced. Potassium 3.6 and placement has been ordered. Monitor on telemetry. Continue to monitor electrolytes to keep magnesium >2 and potassium >4. Somnolent -TSH normal. ApneaLink showing no concerns for sleep apnea. Bilateral lower extremity rash - appears consistent with cutaneous candidiasis and Ketoconazole topical ordered. Could also be skin findings related to cardiac congestion and dependent edema. Follow. DVT Prophylaxis: Xarelto Code Status: Full code Subjective Date/time seen: 06/26/25 16:37 Interval history: 69yo male with AFib on anticoagulation, former smoker, CAD, HLD, HTN and DM presents here with shortness of breath. No CP or SOB. Legs feel and look less swollen. Rash to the bilateral LE for past 1-2 months but now look less red. Exam Narrative: AF 98.3 97/57 69 18 97% ra Gen - NARD Chest - scattered inspiratory rhonchi otherwise clear. Life vest in place. CV - RRR S1/S2. Telemetry showing PVCs Abd - Soft, obese, nontender Ext - trace-1+ pedal edema Psych - pleasant and appropriate. Skin - pink, blanchable erythema bilateral LE without warmth Objective Data Vital Signs Vital Signs: Vital Signs - 24 hr 06/25/25 16:55 06/25/25 18:00 06/25/25 19:32 Temperature 98.2 F Pulse Rate 78 79 80 Pulse Rate [Bilateral Radial Palpation] Respiratory Rate 17 Blood Pressure 99/70 L Pulse Oximetry 100 Oxygen Delivery Fraction of Inspired Oxygen 06/25/25 20:00 06/25/25 22:00 06/25/25 23:30 Temperature Pulse Rate 81 70 Pulse Rate [Bilateral Radial Palpation] Respiratory Rate Blood Pressure Pulse Oximetry 93 Oxygen Delivery Fraction of Inspired Oxygen 21 06/25/25 23:47 06/26/25 00:00 06/26/25 02:00 Temperature 98.7 F Pulse Rate 80 80 78 Pulse Rate [Bilateral Radial Palpation] Respiratory Rate 17 Blood Pressure 136/66 Pulse Oximetry 92 Oxygen Delivery Fraction of Inspired Oxygen 06/26/25 03:40 06/26/25 04:00 06/26/25 06:00 Temperature 98.0 F Pulse Rate 84 81 78 Pulse Rate [Bilateral Radial Palpation] Respiratory Rate 17 Blood Pressure 110/69 Pulse Oximetry 9 L Oxygen Delivery Fraction of Inspired Oxygen 06/26/25 07:19 06/26/25 08:00 06/26/25 08:00 Temperature 98 F Pulse Rate 84 77 Pulse Rate [Bilateral Radial Palpation] Respiratory Rate 18 Blood Pressure 136/93 H Pulse Oximetry 97 Oxygen Delivery Room Air Fraction of Inspired Oxygen 06/26/25 08:42 06/26/25 08:44 06/26/25 10:00 Temperature Pulse Rate 79 79 72 Pulse Rate [Bilateral Radial Palpation] Respiratory Rate Blood Pressure Pulse Oximetry Oxygen Delivery Fraction of Inspired Oxygen 06/26/25 11:24 06/26/25 12:00 06/26/25 12:00 Temperature 98.3 F Pulse Rate 73 72 Pulse Rate [Bilateral Radial Palpation] Respiratory Rate 18 Blood Pressure 111/63 Pulse Oximetry 99 Oxygen Delivery Room Air Fraction of Inspired Oxygen 06/26/25 15:15 06/26/25 15:15 06/26/25 15:30 Temperature Pulse Rate 69 Pulse Rate [Bilateral Radial Palpation] 69 71 Respiratory Rate 18 Blood Pressure 99/59 L Pulse Oximetry 94 Oxygen Delivery Room Air Fraction of Inspired Oxygen 06/26/25 15:30 06/26/25 15:45 06/26/25 15:45 Temperature Pulse Rate 71 67 Pulse Rate [Bilateral Radial Palpation] 67 Respiratory Rate 17 15 Blood Pressure 109/60 101/64 Pulse Oximetry 93 95 Oxygen Delivery Room Air Room Air Fraction of Inspired Oxygen 06/26/25 16:00 06/26/25 16:00 06/26/25 16:15 Temperature Pulse Rate 68 Pulse Rate [Bilateral Radial Palpation] 68 71 Respiratory Rate 18 Blood Pressure 95/56 L Pulse Oximetry 95 Oxygen Delivery Room Air Fraction of Inspired Oxygen 06/26/25 16:15 06/26/25 16:30 06/26/25 16:30 Temperature Pulse Rate 71 69 Pulse Rate [Bilateral Radial Palpation] 69 Respiratory Rate 20 18 Blood Pressure 97/57 L 97/57 L Pulse Oximetry 94 97 Oxygen Delivery Room Air Room Air Fraction of Inspired Oxygen Intake/Output Intake/Output: Intake & Output 06/23/25 06/24/25 06/25/25 06/26/25 23:59 23:59 23:59 23:59 Intake Total 1616.1 640 2220 418.7 Output Total 2600 1750 3700 600 Balance -983.9 -1110 -1480 -181.3 Meds/Results Medications: Active Medications Generic Name Dose Route Start Last Admin Trade Name Freq PRN Reason Stop Dose Admin Albuterol 2 puff 06/16/25 22:11 Albuterol Sulfate (*Sp) Aerosol 1 Puff INHALATION Q4H PRN shortness of breath or wheezing Allopurinol 300 mg 06/17/25 08:00 06/26/25 08:42 Allopurinol 300 Mg Tablet PO 300 mg DAILY@0800 ALYSSA Administration Amiodarone HCl 400 mg 06/22/25 09:00 06/26/25 08:42 Amiodarone Hcl 200 Mg Tablet PO 400 mg BID ALYSSA Administration Ascorbic Acid 125 mg 06/17/25 09:00 06/26/25 08:44 Ascorbic Acid 125 Mg Tablet BY MOUTH 125 mg DAILY ALYSSA Administration Atorvastatin Calcium 10 mg 06/17/25 09:00 06/26/25 08:44 Atorvastatin 10 Mg Tablet PO 10 mg DAILY ALYSSA Administration Benzocaine 1 applic 06/25/25 12:57 06/25/25 15:50 Benzocaine 20% Dental Gel 9 Gm Tube BY MOUTH 1 applic QID PRN Administration Oral Pain Benzonatate 100 mg 06/16/25 22:11 06/23/25 08:14 Benzonatate 100 Mg Capsule PO 100 mg TID PRN Administration cough Dextrose 12.5 gm 06/16/25 22:14 Dextrose 50% 25 Gm/50 Ml Syringe IV PUSH PRN PRN Hypoglycemia Protocol Furosemide 80 mg 06/25/25 17:00 06/26/25 08:49 Furosemide 80 Mg Tablet PO Not Given BID ALYSSA Glucagon 1 mg 06/16/25 22:14 Glucagon For Inj 1 Mg Vial IM PRN PRN Hypoglycemia Protocol Glucose 15 gm 06/16/25 22:14 Glucose Oral Gel 15 Gm Of Glucse In 37.5 Gm Tube PO PRN PRN Hypoglycemia Protocol Dextrose 1,000 mls @ 100 mls/hr 06/16/25 22:14 Dextrose 5% 1,000 Ml IVPB PRN PRN Hypoglycemia Protocol Sodium Chloride 1,000 mls @ 100 mls/hr 06/26/25 15:03 Normal Saline Iv IV CONT 06/27/25 01:02 .Q10H ONE Insulin Aspart 4 - 8 units 06/17/25 08:00 06/26/25 12:22 Insulin Aspart (*Bkc) 100 Units/Ml SUB-Q Not Given TIDWM [facility] Protocol Insulin Aspart 2 - 4 units 06/22/25 21:00 06/25/25 20:59 Insulin Aspart (*Bkc) 100 Units/Ml SUB-Q 3 units HS [facility] Administration Protocol Insulin Aspart 7 units 06/26/25 17:00 Insulin Aspart (*Bkc) 100 Units/Ml SUB-Q TIDWM [facility] Insulin Glargine 22 units 06/26/25 21:00 Insulin Glargine (*Bkc) 100 Units/Ml SUB-Q HS [facility] Losartan Potassium 25 mg 06/27/25 09:00 Losartan Potassium 25 Mg Tablet PO DAILY [facility] Metoprolol Succinate 25 mg 06/17/25 09:00 06/26/25 08:44 Metoprolol Succinate Ext Rel 25 Mg Tabcr PO 25 mg DAILY [facility] Administration Miconazole Nitrate 1 applic 06/17/25 09:00 06/26/25 12:23 Miconazole Nitrate 2% Cream 30 Gm Tube TOPICAL 1 applic Q12HR [facility] Administration Miscellaneous Information 1 each 06/26/25 00:01 Please Renew _Miconazole Crm. Per [employer] Procedure, It Will Discontinue If Not Renewed XX 07/26/25 00:00 CLARIFY [facility] Ondansetron HCl 4 mg 06/16/25 16:23 Ondansetron Inj 4 Mg/2 Ml Vial IV PUSH Q4H PRN Nausea Potassium Chloride 40 meq 06/20/25 09:45 06/26/25 08:42 Potassium Chloride 20 Meq Er Tablet PO 40 meq DAILY [facility] Administration Rivaroxaban 20 mg 06/26/25 20:00 Rivaroxaban 20 Mg Tablet PO DAILY@1999 [facility] Radiology Results: ITS Impressions Chest X-Ray 06/23/25 10:37 IMPRESSION: 1: NO ACUTE CARDIOPULMONARY DISEASE. Labs Labs: Laboratory Results - last 24 hr 06/25/25 06/25/25 06/26/25 16:37 19:35 03:58 WBC 10.7 H RBC 5.27 Hgb 15.5 Hct 47.9 MCV 90.9 MCH 29.4 MCHC 32.4 RDW 15.9 H Plt Count 215 MPV 11.6 H Sodium 129 L Potassium 3.6 Chloride 86 L Carbon Dioxide 34 H Anion Gap 9 BUN 29 H Creatinine 1.29 Estim Creat Clear Calc 59 Estimated GFR 55 L Glucose 250 H POC Capillary Glucose 264 H 320 H Calcium 9.5 Phosphorus 4.5 Magnesium 1.5 L Albumin 4.3 06/26/25 06/26/25 07:32 11:27 WBC RBC Hgb Hct MCV MCH MCHC RDW Plt Count MPV Sodium Potassium Chloride Carbon Dioxide Anion Gap BUN Creatinine Estim Creat Clear Calc Estimated GFR Glucose POC Capillary Glucose 299 H 270 H Calcium Phosphorus Magnesium Albumin
[2025-06-26] MEDS: FUROSEMIDE 80 MG TABLET PO (18:19)
[2025-06-26] MEDS: INSULIN ASPART (*BKC) 100 UNITS/ML SUB-Q ×2 (18:19→21:32)
[2025-06-26] MEDS: INSULIN ASPART (*BKC) 100 UNITS/ML 7 UNITS SUB-Q (18:20)
[2025-06-26] MEDS: INSULIN GLARGINE (*BKC) 100 UNITS/ML 22 UNITS SUB-Q (21:32)
[2025-06-26] MEDS: RIVAROXABAN 20 MG TABLET PO (21:34)
[2025-06-27] VITALS (11 sets, daily range): BP systolic 95–105; BP diastolic 58–74; PULSE 69–81; RESP 14–17; TEMP 36.5–36.9; O2SAT 98–100
--- NOTE | 2025-06-27 00:51 | PC.NURSE ---
pt has lifevest in place
[2025-06-27 04:29] LABS: Hematocrit 47.2 % (42.0-52.0); Hemoglobin 15.2 g/dL (14.0-18.0); Mean Corpuscular HGB Conc 32.2 g/dl (32-36); Mean Corpuscular Hemoglobin 29.6 pg (26-34); Mean Corpuscular Volume 91.8 fl (80-100); Platelet Count Result 209 k/mm3 (150-375); Red Blood Count 5.14 M/mm3 (4.6-6.20); White Blood Count 8.9 K/mm3 (4.5-10.0)
[2025-06-27 04:42] LABS: Albumin Level 4.2 g/dL (3.5-5.1); Anion Gap 8 mmol/L (4-12); Blood Urea Nitrogen 26 mg/dL (9-20); Calcium 9.5 mg/dL (8.4-10.2); Carbon Dioxide 33 mmol/L (22-30); Chloride 89 mmol/L (98-107); Estimated CRCL calculation 61 ml/min; Estimated Glomerular Filt Rate 56; Glucose 189 mg/dL (65-110); Magnesium 1.6 mg/dL (1.6-2.3); Potassium 3.7 mmol/L (3.4-5.0); Sodium 130 mmol/L (137-145)
[2025-06-27 05:37] LABS: Vitamin B12 992.0 pg/mL (239-931)
[2025-06-27] MEDS: POTASSIUM CHLORIDE 20 MEQ ER TABLET 40 MEQ PO (08:07)
[2025-06-27] MEDS: POTASSIUM CHLORIDE 20 MEQ ER TABLET PO (08:07)
[2025-06-27] MEDS: METOPROLOL SUCCINATE EXT REL 25 MG TABCR PO (08:08)
[2025-06-27] MEDS: FUROSEMIDE 80 MG TABLET PO (08:08)
[2025-06-27] MEDS: ASCORBIC ACID 125 MG TABLET BY MOUTH (08:08)
[2025-06-27] MEDS: LOSARTAN POTASSIUM 25 MG TABLET PO (08:08)
[2025-06-27] MEDS: AMIODARONE HCL 200 MG TABLET 400 MG PO (08:08)
[2025-06-27] MEDS: ATORVASTATIN 10 MG TABLET PO (08:08)
[2025-06-27] MEDS: INSULIN ASPART (*BKC) 100 UNITS/ML SUB-Q ×2 (08:09→11:45)
[2025-06-27] MEDS: INSULIN ASPART (*BKC) 100 UNITS/ML 7 UNITS SUB-Q ×2 (08:10→11:46)
--- NOTE | 2025-06-27 08:58 | P.PNCA_ITS ---
Progress Note: A&P Assessment and Plan (1) CHF (congestive heart failure): Qualifiers: Heart failure chronicity: acute Heart failure type: systolic Qualified Code(s): I50.21 - Acute systolic (congestive) heart failure Code(s): I50.9 - Heart failure, unspecified Status: Acute (2) Paroxysmal atrial fibrillation: Code(s): I48.0 - Paroxysmal atrial fibrillation Status: Chronic (3) Coronary artery disease: Qualifiers: Coronary Disease-Associated Artery/Lesion type: [place] artery [place] vs. transplanted heart: [place] heart Associated angina: without angina Qualified Code(s): I25.10 - Atherosclerotic heart disease of [place] coronary artery without angina pectoris Code(s): I25.10 - Atherosclerotic heart disease of [place] coronary artery without angina pectoris Status: Acute Plan 69-year-old man with paroxysmal atrial fibrillation, nonobstructive coronary artery disease, and chronic systolic heart failure initially presented with shortness of breath and has improved significantly with diuresis and GDMT Chronic systolic heart failure -was recently diagnosed and is nonischemic based on cardiac catheterization -continue metoprolol succinate 25 mg p.o. daily, losartan 25 mg p.o. daily, and add spironolactone 12.5 mg p.o. daily -can decrease Lasix to 40mg p.o. b.i.d. -recommend compression stockings -continue life vest Paroxysmal atrial fibrillation -transition to amiodarone 400 mg p.o. daily -continue Xarelto 20 mg every evening with dinner Coronary artery disease -ostial left main with 30% stenosis -continue atorvastatin every evening Patient can be discharged today to follow up outpatient in clinic Subjective Date/time seen: 06/27/25 08:58 Interval history: Denies any chest pain or shortness of breath. Is feeling well overall has been able to ambulate to the bathroom without any limitations. No lightheadedness or dizziness. No syncope. Wrist feels well. Review of Systems Cardiovascular: Cardiovascular: Reports as per HPI Respiratory: Respiratory: Reports as per HPI Exam Const: General: comfortable HENMT: Mouth: Yes dry mucous membranes Eyes: EOM: EOMs intact bilaterally Neck: Neck: no JVD Resp: Effort & Inspection: normal respiratory effort Auscultation: clear to auscultation bilaterally Cardio: Rate: regular rate Rhythm: regular rhythm GI: GI Palp: Yes Soft to palpation Neuro: Speech: normal speech Extrem: General: edema Objective Data Vital Signs Vital Signs: Vital Signs - 24 hr 06/26/25 10:00 06/26/25 11:24 06/26/25 12:00 Temperature 36.8 C Pulse Rate 72 73 Pulse Rate [Bilateral Radial Palpation] Respiratory Rate 18 Blood Pressure 111/63 Pulse Oximetry 99 Oxygen Delivery Room Air Fraction of Inspired Oxygen 06/26/25 12:00 06/26/25 15:15 06/26/25 15:15 Temperature Pulse Rate 72 69 Pulse Rate [Bilateral Radial Palpation] 69 Respiratory Rate 18 Blood Pressure 99/59 L Pulse Oximetry 94 Oxygen Delivery Room Air Fraction of Inspired Oxygen 06/26/25 15:30 06/26/25 15:30 06/26/25 15:45 Temperature Pulse Rate 71 67 Pulse Rate [Bilateral Radial Palpation] 71 Respiratory Rate 17 15 Blood Pressure 109/60 101/64 Pulse Oximetry 93 95 Oxygen Delivery Room Air Room Air Fraction of Inspired Oxygen 06/26/25 15:45 06/26/25 16:00 06/26/25 16:00 Temperature Pulse Rate 68 Pulse Rate [Bilateral Radial Palpation] 67 68 Respiratory Rate 18 Blood Pressure 95/56 L Pulse Oximetry 95 Oxygen Delivery Room Air Fraction of Inspired Oxygen 06/26/25 16:15 06/26/25 16:15 06/26/25 16:30 Temperature Pulse Rate 71 Pulse Rate [Bilateral Radial Palpation] 71 69 Respiratory Rate 20 Blood Pressure 97/57 L Pulse Oximetry 94 Oxygen Delivery Room Air Fraction of Inspired Oxygen 06/26/25 16:30 06/26/25 16:45 06/26/25 16:45 Temperature Pulse Rate 69 73 Pulse Rate [Bilateral Radial Palpation] 73 Respiratory Rate 18 20 Blood Pressure 108/67 108/81 Pulse Oximetry 97 98 Oxygen Delivery Room Air Room Air Fraction of Inspired Oxygen 06/26/25 17:00 06/26/25 17:00 06/26/25 17:15 Temperature Pulse Rate 70 Pulse Rate [Bilateral Radial Palpation] 70 72 Respiratory Rate 20 Blood Pressure 100/72 Pulse Oximetry 96 Oxygen Delivery Room Air Fraction of Inspired Oxygen 06/26/25 17:15 06/26/25 17:30 06/26/25 17:30 Temperature Pulse Rate 72 72 Pulse Rate [Bilateral Radial Palpation] 72 Respiratory Rate 15 18 Blood Pressure 109/64 97/62 L Pulse Oximetry 98 98 Oxygen Delivery Room Air Room Air Fraction of Inspired Oxygen 06/26/25 17:45 06/26/25 17:45 06/26/25 17:59 Temperature Pulse Rate 73 74 Pulse Rate [Bilateral Radial Palpation] 73 Respiratory Rate 12 15 Blood Pressure 96/54 L 110/62 Pulse Oximetry 99 97 Oxygen Delivery Room Air Room Air Fraction of Inspired Oxygen 06/26/25 17:59 06/26/25 18:00 06/26/25 18:20 Temperature Pulse Rate 74 74 Pulse Rate [Bilateral Radial Palpation] 74 Respiratory Rate Blood Pressure Pulse Oximetry Oxygen Delivery Fraction of Inspired Oxygen 06/26/25 18:24 06/26/25 18:48 06/26/25 19:10 Temperature 36.6 C 36.7 C Pulse Rate 73 84 Pulse Rate [Bilateral Radial Palpation] 71 Respiratory Rate 18 17 Blood Pressure 105/64 101/75 Pulse Oximetry 96 98 Oxygen Delivery Fraction of Inspired Oxygen 06/26/25 19:48 06/26/25 20:00 06/26/25 20:00 Temperature 36.6 C Pulse Rate 78 81 75 Pulse Rate [Bilateral Radial Palpation] 78 Respiratory Rate 18 18 Blood Pressure 110/72 Pulse Oximetry 98 Oxygen Delivery Room Air Fraction of Inspired Oxygen 06/26/25 22:00 06/26/25 23:22 06/26/25 23:49 Temperature 36.7 C Pulse Rate 77 72 76 Pulse Rate [Bilateral Radial Palpation] Respiratory Rate 18 17 Blood Pressure 101/60 Pulse Oximetry 98 98 Oxygen Delivery Room Air Fraction of Inspired Oxygen 06/27/25 00:00 06/27/25 02:00 06/27/25 03:13 Temperature 36.9 C Pulse Rate 72 70 69 Pulse Rate [Bilateral Radial Palpation] Respiratory Rate 17 Blood Pressure 104/74 Pulse Oximetry 98 Oxygen Delivery Fraction of Inspired Oxygen 06/27/25 04:00 06/27/25 08:00 06/27/25 08:08 Temperature 36.5 C Pulse Rate 69 73 75 Pulse Rate [Bilateral Radial Palpation] Respiratory Rate 17 14 Blood Pressure 105/73 Pulse Oximetry 98 100 Oxygen Delivery Room Air Fraction of Inspired Oxygen 21 06/27/25 08:08 Temperature Pulse Rate 75 Pulse Rate [Bilateral Radial Palpation] Respiratory Rate Blood Pressure Pulse Oximetry Oxygen Delivery Fraction of Inspired Oxygen Intake/Output Intake/Output: Intake & Output 06/24/25 06/25/25 06/26/25 06/27/25 23:59 23:59 23:59 23:59 Intake Total 640 2220 418.7 120 Output Total 1750 3700 1400 350 [facility] -9550 -4620 -981.3 -230 Meds/Results Medications: Active Medications Generic Name Dose Route Start Last Admin Trade Name Freq PRN Reason Stop Dose Admin Albuterol 2 puff 06/16/25 22:11 Albuterol Sulfate (*Sp) Aerosol 1 Puff INHALATION Q4H PRN shortness of breath or wheezing Allopurinol 300 mg 06/17/25 08:00 06/27/25 08:08 Allopurinol 300 Mg Tablet PO 300 mg DAILY@0800 ALYSSA Administration Amiodarone HCl 400 mg 06/22/25 09:00 06/27/25 08:08 Amiodarone Hcl 200 Mg Tablet PO 400 mg BID ALYSSA Administration Ascorbic Acid 125 mg 06/17/25 09:00 06/27/25 08:08 Ascorbic Acid 125 Mg Tablet BY MOUTH 125 mg DAILY ALYSSA Administration Atorvastatin Calcium 10 mg 06/17/25 09:00 06/27/25 08:08 Atorvastatin 10 Mg Tablet PO 10 mg DAILY ALYSSA Administration Benzocaine 1 applic 06/25/25 12:57 06/25/25 15:50 Benzocaine 20% Dental Gel 9 Gm Tube BY MOUTH 1 applic QID PRN Administration Oral Pain Benzonatate 100 mg 06/16/25 22:11 06/23/25 08:14 Benzonatate 100 Mg Capsule PO 100 mg TID PRN Administration cough Dextrose 12.5 gm 06/16/25 22:14 Dextrose 50% 25 Gm/50 Ml Syringe IV PUSH PRN PRN Hypoglycemia Protocol Furosemide 80 mg 06/28/25 09:00 Furosemide 80 Mg Tablet PO DAILY ALYSSA Glucagon 1 mg 06/16/25 22:14 Glucagon For Inj 1 Mg Vial IM PRN PRN Hypoglycemia Protocol Glucose 15 gm 06/16/25 22:14 Glucose Oral Gel 15 Gm Of Glucse In 37.5 Gm Tube PO PRN PRN Hypoglycemia Protocol Dextrose 1,000 mls @ 100 mls/hr 06/16/25 22:14 Dextrose 5% 1,000 Ml IVPB PRN PRN Hypoglycemia Protocol Insulin Aspart 4 - 8 units 06/17/25 08:00 06/27/25 08:09 Insulin Aspart (*Bkc) 100 Units/Ml SUB-Q 4 units TIDWM ALYSSA Administration Protocol Insulin Aspart 2 - 4 units 06/22/25 21:00 06/26/25 21:32 Insulin Aspart (*Bkc) 100 Units/Ml SUB-Q 3 units HS [facility] Administration Protocol Insulin Aspart 7 units 06/26/25 17:00 06/27/25 08:10 Insulin Aspart (*Bkc) 100 Units/Ml SUB-Q 7 units TIDWM [facility] Administration Insulin Glargine 22 units 06/26/25 21:00 06/26/25 21:32 Insulin Glargine (*Bkc) 100 Units/Ml SUB-Q 22 units HS [facility] Administration Losartan Potassium 25 mg 06/27/25 09:00 06/27/25 08:08 Losartan Potassium 25 Mg Tablet PO 25 mg DAILY [facility] Administration Metoprolol Succinate 25 mg 06/17/25 09:00 06/27/25 08:08 Metoprolol Succinate Ext Rel 25 Mg Tabcr PO 25 mg DAILY [facility] Administration Miconazole Nitrate 1 applic 06/17/25 09:00 06/26/25 21:34 Miconazole Nitrate 2% Cream 30 Gm Tube TOPICAL 1 applic Q12HR [facility] Administration Miscellaneous Information 1 each 06/26/25 00:01 Please Renew _Miconazole Crm. Per [employer] Procedure, It Will Discontinue If Not Renewed XX 07/26/25 00:00 CLARIFY [facility] Ondansetron HCl 4 mg 06/16/25 16:23 Ondansetron Inj 4 Mg/2 Ml Vial IV PUSH Q4H PRN Nausea Rivaroxaban 20 mg 06/26/25 20:00 06/26/25 21:34 Rivaroxaban 20 Mg Tablet PO 20 mg DAILY@2000 [facility] Administration Spironolactone 12.5 mg 06/27/25 09:00 Spironolactone 12.5 Mg Tablet PO QAM [facility] Radiology Results: ITS Impressions Chest X-Ray 06/23/25 10:37 IMPRESSION: 1: NO ACUTE CARDIOPULMONARY DISEASE. Labs Labs: Laboratory Results - last 24 hr 06/26/25 06/26/25 06/26/25 11:27 18:11 19:58 WBC RBC Hgb Hct MCV MCH MCHC RDW Plt Count MPV Sodium Potassium Chloride Carbon Dioxide Anion Gap BUN Creatinine Estim Creat Clear Calc Estimated GFR Glucose POC Capillary Glucose 270 H 291 H 331 H Calcium Phosphorus Magnesium Albumin Vitamin B12 Folate 06/27/25 06/27/25 04:08 07:37 WBC 8.9 RBC 5.14 Hgb 15.2 Hct 47.2 MCV 91.8 MCH 29.6 MCHC 32.2 RDW 15.8 H Plt Count 209 MPV 11.5 H Sodium 130 L Potassium 3.7 Chloride 89 L Carbon Dioxide 33 H Anion Gap 8 BUN 26 H Creatinine 1.26 Estim Creat Clear Calc 61 Estimated GFR 56 L Glucose 189 H POC Capillary Glucose 231 H Calcium 9.5 Phosphorus 4.2 Magnesium 1.6 Albumin 4.2 Vitamin B12 992.0 H Folate 14.4
--- NOTE | 2025-06-27 14:46 | PM.DS ---
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 Diabetes mellitus complication status: without complication Qualified Code(s): E11.9 - Type 2 diabetes mellitus without complications Code(s): E11.9 - Type 2 diabetes mellitus without complications Status: Chronic (3) Paroxysmal atrial fibrillation: Code(s): I48.0 - Paroxysmal atrial fibrillation Status: Chronic (4) Hypertension: Qualifiers: Hypertension type: essential hypertension Qualified Code(s): I10 - Essential (primary) hypertension Code(s): I10 - Essential (primary) hypertension Status: Chronic DS: Summary Hospital Course Reason for hospitalization: 69yo male with AFib on anticoagulation, former smoker, CAD, HLD, HTN and DM presents here with shortness of breath. Please see H&P for details. Hospital Course: Patient presents with shortness of breath. BNP 3890. Chest x-ray shows bilateral airspace opacities and pulmonary vascular congestion with cardiomegaly. Recent echo (06/13/25):systolic function was severely globally reduced, EF of 20-25%, diastolic function abnormal, AFib, and mild valvular disease with no pulmonary hypertension. Patient with acute systolic and diastolic CHF. Cardiology consulted and appreciate their input. Patient was treated with IV Lasix intermittently and occasional Zaroxolyn. He had excellent diuresis with negative fluid balance and weight loss. On Metoprolol XL 25mg daily. Lasix switched to oral route. He did require Midodrine for pressure support but this was able to be stopped successfully. LHC showing mild CAD and felt patient with nonischemic CMP. Cozaar and Aldactone added. LifeVest was placed. A1c 8.5% on 05/20/25. The patient's blood glucose was monitored with AccuCheks covering with sliding scale. Hypoglycemia protocol available as needed. He takes Lantus 15U every morning and oral Glipizide at home. Glucose poorly controlled here and medications adjusted to Lantus 22U QHS and Novolog 7U at meals with improved glycemic control. Appreciate Release And Technical Records Clerk input. Patient with atrial fibrillation on Xarelto at home. EKG showing atrial fibrillation on admission. TSH normal. Started on amiodarone loading. Continued on Metoprolol XL. He was on Heparin drip and Xarelto was held. He converted to sinus rhythm. EKG showing normal sinus rhythm with PACs and PVCs. Heparin stopped after LHC and Xarelto resumed. He was having episodes of NSVT. Magnesium was low and was replaced. Potassium also replaced often. He was somnolent at times. TSH normal. ApneaLink showing no concerns for sleep apnea. This improved. He also had a bilateral LE rash that appears consistent with cutaneous candidiasis and Ketoconazole topical ordered. Patient and family felt the rash looked much better with this treatment. Patient overall did well and was able to be discharged on 06/27/25. Discharge instructions discussed and all questions answered. Status at Discharge Cognitive/behavioral status at discharge: stable Time Spent with Patient Time attestation: Total time spent providing and/or coordinating discharge services: 38 minutes Time spent: Greater than 30 minutes Exam Narrative: AF 97.9 95/58 73 16 98% ra Gen - NARD Chest - few basilar rhonchi o/w clear. Life vest in place. CV - RRR S1/S2. Telemetry showing PVCs Abd - Soft, obese, nontender Ext - trace-1+ pedal edema Psych - pleasant and appropriate. Skin - pink, blanchable erythema bilateral LE (mid gibbs to feet) without warmth DS: Data Data Completed and Pending Labs on day of discharge: Labs from last 24 hours 06/27/25 06/27/25 06/27/25 11:13 07:37 04:08 WBC 8.9 RBC 5.14 Hgb 15.2 Hct 47.2 MCV 91.8 MCH 29.6 MCHC 32.2 RDW 15.8 H Plt Count 209 MPV 11.5 H Sodium 130 L Potassium 3.7 Chloride 89 L Carbon Dioxide 33 H Anion Gap 8 BUN 26 H Creatinine 1.26 Estim Creat Clear Calc 61 Estimated GFR 56 L Glucose 189 H POC Capillary Glucose 241 H 231 H Calcium 9.5 Phosphorus 4.2 Magnesium 1.6 Albumin 4.2 Vitamin B12 992.0 H Folate 14.4 06/26/25 06/26/25 19:58 18:11 WBC RBC Hgb Hct MCV MCH MCHC RDW Plt Count MPV Sodium Potassium Chloride Carbon Dioxide Anion Gap BUN Creatinine Estim Creat Clear Calc Estimated GFR Glucose POC Capillary Glucose 331 H 291 H Calcium Phosphorus Magnesium Albumin Vitamin B12 Folate Discharge Plan Discharge Attending physician on discharge: Bulmaro Casas Consulting providers: Julio C Yoo Discharging Clinician: Bulmaro Casas Anticipated Discharge Date/Time: 06/27/25 14:59 Patient Disposition: Home Activity: no straining and as tolerated Diet: diabetic Discharge Instructions: Continue LifeVest as directed. Please check glucose before meals and before bed. Record and bring into your doctor for review. Check blood pressure 1 to 2 times a day. Record and bring into your doctor for review. Call your doctor if your blood pressure is greater than 180/110. Take precautions to avoid falls. Rise slowly from a lying or sitting position. Pause before standing or walking. Check daily morning weights after voiding. Call your doctor if you gain more than 3 lb in 2 days or 5 lb in 1 week. Contact your doctor or call 911 and come to the Emergency Room if you have lightheadedness with standing or other worrisome symptoms. Avoid NSAIDs (ibuprofen, naproxen, Aleve). Tylenol is safe to take. Follow-up with your primary care provider in 1-2 weeks. Please call for appointment. Follow-up with Cardiology in 2-4 weeks. Please call for an appointment. Thank you for using [facility] for your health care needs. Patient Instructions: Antibiotic Form, Metoprolol (By mouth), Heart Failure (DC), A-fib (Atrial Fibrillation) (DC), Leg Edema (ED) Patient Language: Polish Stand Alone Forms: General Discharge Information Follow-up/Referrals: Shanika Patricio MD [Primary Care Provider, Family Practice] - Call for Appointment Meena Buenrostro APN-C [Advanced Practice Nurse, Cardiology] - 3 Weeks Discharge Medications: New losartan 25 mg Tablet 25 mg PO DAILY Qty: 30 1RF spironolactone 25 mg tablet 12.5 mg PO DAILY Qty: 14 1RF amiodarone [Pacerone] 200 mg Tablet 400 mg PO DAILY Qty: 60 1RF spironolactone 25 mg tablet 12.5 mg PO DAILY Qty: 14 1RF Continued albuterol sulfate [Ventolin HFA] 90 mcg/actuation HFA aerosol inhaler 1 puff inhalation Q4H PRN (Reason: shortness of breath or wheezing) Qty: 8.5 3RF glucosamine-chondroitin 500-400 mg tablet 1 tablet PO BID (DME) Accu-Chek Guide test strips Strip See Rx Instructions .Route Qty: 100 0RF Rx Instructions: Check blood glucose daily (DME) blood-glucose meter [Accu-Chek Guide Glucose Meter] Misc See Rx Instructions .Route Qty: 1 0RF Rx Instructions: Check blood sugar daily atorvastatin 10 mg tablet 10 mg PO DAILY Qty: 90 3RF Rx Instructions: new pharmacy patient requested today [phone] (DME) pen needle, diabetic 33 gauge x 5/16 needle See Rx Instructions .Route Qty: 100 3RF Rx Instructions: As directed daily (DME) FreeStyle Radha 3 Plus Sensor Device See Rx Instructions .Route Qty: 2 12RF Rx Instructions: Use QID (DME) FreeStyle Radha 3 [place] Misc See Rx Instructions .Route Qty: 1 0RF Rx Instructions: As directed QID ascorbic acid (vitamin C) 100 mg Tablet 100 mg PO DAILY (DME) lancets [Accu-Chek Softclix Lancets] Misc See Rx Instructions .Route Qty: 100 3RF Rx Instructions: use as directed to Check blood sugar once daily allopurinol 300 mg tablet 300 mg PO DAILY Qty: 90 3RF glipizide 10 mg tablet extended release 24hr 10 mg PO BID Qty: 180 3RF metoprolol succinate 25 mg tablet extended release 24 hr 25 mg PO DAILY Qty: 30 6RF Xarelto 20 mg tablet 20 mg PO DAILY Qty: 30 5RF Rx Instructions: must administer with evening meal furosemide [Lasix] 40 mg tablet 40 mg PO BID Qty: 60 1RF Changed insulin glargine [Lantus Solostar U-100 Insulin] 100 unit/mL (3 mL) insulin pen 28 unit subcut HS Qty: 15 1RF Held potassium chloride 10 mEq capsule, extended release 10 meq PO DAILY Qty: 90 2RF Hold Instructions: HOLD - resume if okay with your doctor Discontinued benzonatate 100 mg capsule 100 mg PO TID PRN (Reason: cough) Qty: 30 0RF amlodipine 10 mg tablet 10 mg PO DAILY Qty: 90 2RF losartan 100 mg tablet 100 mg PO DAILY Qty: 90 2RF Other Ambulatory Orders: Basic Metabolic Panel (Routine) Timeframe: [id number] Location: Determined by Patient Ordered By: Bulmaro Casas Date of admission: 06/16/25 16:23 Primary Care Provider: Shanika Patricio Admitting Provider: Jeancarlos Cooley Attending physician on admission: Jeancarlos Cooley Condition: Stable Hospitalist MIPS Heart Failure (Exclusion) Patient has history of Heart Transplant or Left Ventricular Assistive Device?: No IF YES, STOP HERE Heart Failure (Qualifier) Patient has current or prior documentation of LVEF less than or equal to 40%, or mod/servere depressed LVSF?: Yes IF NO, STOP HERE If Yes, Heart Failure (Qualifier) Patient was prescribed or already taking an Angiotensin-Converting Enzyme (JUSTICE) Inhibitor, or Antiotensin Receptor Christal (ARB): Yes Patient was prescribed or already taking bisoprolol, carvedilol, or sustained release metoprolol succinate: Yes
--- NOTE | 2025-07-09 10:06 | PCCDE ---
07/09/25: DM educator courtesy follow up call completed. Pt followed up with cardiac. Pt denies any DM related questions, states to following DC insulin orders. C/O blisters in mouth which are drying up, asking for antibx -- advised to eliminate acidic foods to avoid irritation -- Directed to reach out to PCP. Pt declines OP DSMT/MNT at this time.
== END 2025-06-27 16:27 | disposition home or self-care (01) | DRG 286 ==
LOC: ANHED 16:29 → ANHIMU 06-17 14:22
PROVIDERS: Internal Medicine; Internal Medicine Cardiovascular Disease; Internal Medicine Interventional Cardiology; Nurse Practitioner; Physician Assistant; Specialist; Student in an Organized Health Care Education/Training Program; Admitting Provider General Practice; Emergency Provider General Practice; PCP Family Medicine; Visit Provider Internal Medicine
PROC: 5A2204Z Restoration of Cardiac Rhythm, Single (ICD-10-PCS; principal; 2025-06-24 13:30)
PROC: 4A023N7 Measurement of Cardiac Sampling and Pressure, Left Heart, Percutaneous Approach (ICD-10-PCS; CPT 93452; principal; 2025-06-26 11:30)
DX: I11.0 Hypertensive heart disease with heart failure (principal); I50.43 Acute on chronic combined systolic (congestive) and diastolic (congestive) heart failure; I48.0 Paroxysmal atrial fibrillation; I42.9 Cardiomyopathy, unspecified; I25.10 Atherosclerotic heart disease of native coronary artery without angina pectoris; E83.42 Hypomagnesemia; E11.9 Type 2 diabetes mellitus without complications; E78.5 Hyperlipidemia, unspecified; B37.2 Candidiasis of skin and nail; Z79.01 Long term (current) use of anticoagulants; Z87.891 Personal history of nicotine dependence; Z86.73 Personal history of transient ischemic attack (TIA), and cerebral infarction without residual deficits; Z79.4 Long term (current) use of insulin
CPT/HCPCS: 36415; 71045; 71046; 80048; 80053; 80069; 82607; 82746; 82948; 83605; 83690; 83735; 83880; 84100; 84443; 84484; 85025; 85027; 85610; 85730; 92960; 93005; 93458; 94762; 96374; 96375; 97110; 97161; 97165; 97530; 97535; 99285; A9270; C1769; C1887; C1894; C8929; J0616; J1160; J1644; J1815; J1938; J2003; J2250; J2305; J3010; J3475; J7030; J7040; Q9957

== ENCOUNTER 2025-07-03 07:44 | Outpatient (CLI) | payer MEDICARE, OTHER, SELFPAY ==
[2025-07-03 08:43] LABS: Anion Gap 7 mmol/L (4-12); Blood Urea Nitrogen 13 mg/dL (9-20); Calcium 8.7 mg/dL (8.4-10.2); Carbon Dioxide 31 mmol/L (22-30); Chloride 96 mmol/L (98-107); Estimated Glomerular Filt Rate > 60; Glucose 121 mg/dL (65-110); Potassium 3.3 mmol/L (3.4-5.0); Sodium 134 mmol/L (137-145)
== END 2025-07-03 07:45 | disposition home or self-care (01) ==
LOC: ANHLAB 07:45
PROVIDERS: PCP Family Medicine; Visit Provider Internal Medicine
DX: I50.9 Heart failure, unspecified (principal)
CPT/HCPCS: 36415; 80048

== ENCOUNTER 2025-07-21 08:12 | Outpatient (CLI) | payer MEDICARE, OTHER, SELFPAY ==
[2025-07-21 09:51] LABS: Hematocrit 43.7 % (42.0-52.0); Hemoglobin 13.8 g/dL (14.0-18.0); Immature Granulocyte Percent A 0.6 % (0-0.5); Lymphocytes Absolute Auto 1.88 K/mm3 (0.9-3.2); Mean Corpuscular HGB Conc 31.6 g/dl (32-36); Mean Corpuscular Hemoglobin 29.6 pg (26-34); Mean Corpuscular Volume 93.6 fl (80-100); Nucleated Red Blood Cells Absolute Auto 0.000 K/mm3 (0.0-0.012); Nucleated Red Blood Cells Perc 0.0 % (0.0-0.2); Platelet Count Result 275 k/mm3 (150-375); Red Blood Count 4.67 M/mm3 (4.6-6.20); White Blood Count 10.0 K/mm3 (4.5-10.0)
[2025-07-21 10:24] LABS: Anion Gap 7 mmol/L (4-12); Blood Urea Nitrogen 20 mg/dL (9-20); Calcium 8.8 mg/dL (8.4-10.2); Carbon Dioxide 32 mmol/L (22-30); Chloride 98 mmol/L (98-107); Estimated Glomerular Filt Rate > 60; Glucose 134 mg/dL (65-110); Potassium 4.1 mmol/L (3.4-5.0); Sodium 137 mmol/L (137-145)
== END 2025-07-21 08:13 | disposition home or self-care (01) ==
PROVIDERS: PCP Family Medicine; Visit Provider Student in an Organized Health Care Education/Training Program
DX: E87.6 Hypokalemia (principal); D64.9 Anemia, unspecified
CPT/HCPCS: 36415; 80048; 85025